=== PATIENT | male | born 1960 | race Caucasian/White ===

== ENCOUNTER → 2021-02-04 | Outpatient (CLI) | payer BC ==
[2021-02-04 15:11] LABS: Basophils # (A) 0.06 X 10*3/uL (0.00-0.10); Basophils % (A) 0.9 %; Eosinophils # (A) 0.14 X 10*3/uL (0.04-0.35); Lymphocytes # (A) 1.92 X 10*3/uL (0.90-5.00); Lymphocytes % (A) 27.8 %; MCH 29.1 pg (27.0-32.0); MCHC 32.5 g/dL (32.0-37.0); MCV 89.7 fL (80.0-97.0); Mean Platelet Volume 10.8 fL (9.5-12.2); Monocytes # (A) 0.51 X 10*3/uL (0.20-1.00); Monocytes % (A) 7.4 %; Neutrophils # (A) 4.25 X 10*3/uL (1.80-7.70); Neutrophils % (A) 61.5 %; Platelet Count 194 X 10*3/uL (140-440); RBC 4.46 X 10*6/uL (4.40-5.60); RDW 14.5 % (11.5-14.5); WBC 6.91 X 10*3/uL (4.50-10.00)
[2021-02-04 18:11] LABS: African American GFR (CKD) 52.7 (60.0-200.0); Albumin 4.5 g/dL (3.80-4.90); Albumin/Globulin Ratio 1.55 (1.60-3.17); Anion Gap 11.2 mmol/L (4.00-12.00); BUN/Creat Ratio 23.13 Ratio (12.00-20.00); Calcium 9.8 mg/dL (8.7-10.3); Carbon Dioxide 21.8 mmol/L (21.6-31.8); Globulin 2.9 g/dL (1.6-3.3); Non-African American GFR(CKD) 45.5 (60.0-200.0); Potassium 4.7 mmol/L (3.5-5.5); Total Bilirubin 0.8 mg/dL (0.2-1.2); Total Protein 7.4 g/dL (6.2-8.2)
[2021-02-04 20:11] LABS: Hepatitis B Surface AB- Quant <3.5 mIU/mL; Hepatitis B Surface Antibody Non-Reactive (Non-Reactive); Hepatitis B Surface Antigen Non-Reactive (Non-Reactive); Hepatitis C IgG Antibody Non-Reactive (Non-Reactive)
== END | disposition home or self-care (01) ==
LOC: LABWHC1 07:01
PROVIDERS: ATTEND Physician Assistant
DX: L40.0 Psoriasis vulgaris (principal); M25.50 Pain in unspecified joint; Z79.899 Other long term (current) drug therapy
CPT/HCPCS: 36415; 80053; 85025; 86480; 86704; 86706; 86803; 87340

== ENCOUNTER → 2022-04-09 | Outpatient (CLI) | payer BC ==
--- NOTE | 2022-04-09 09:25 | XR ---
Lumbosacral spine HISTORY: Low back pain, hip pain, [id number] 5 views of lumbosacral spine No comparisons Minimal anterolisthesis grade 1 L4-5, retrolisthesis grade 1 L3-4 noted. Sclerosis is present in the posterior elements of the lower lumbar spine. Is multilevel spondylosis. Loss of disc height present at intervertebral levels. Lumbar vertebral bodies show preserved height and bone mineralization. No e vident spondylolysis. Atherosclerotic calcification present in the aorta iliac distribution. IMPRESSION: Degenerative disc disease and facet arthropathy.
== END | disposition home or self-care (01) ==
LOC: RADXRMAIN 08:03
PROVIDERS: ATTEND Family Medicine
DX: M47.896 Other spondylosis, lumbar region (principal); M51.36 Other intervertebral disc degeneration, lumbar region; M25.551 Pain in right hip
CPT/HCPCS: 72110

== ENCOUNTER 2023-05-17 08:35 | Day surgery (SDC) | payer BC ==
[2023-05-11 10:50] VITALS: BMI 32.3
[~2023-05-17 08:35] MED LIST: LACTATED RINGERS 1,000 ML IV SCH
[2023-05-17 09:55] LABS: Glucose,Whole Blood 119 mg/dL (70-110)
[2023-05-17] MEDS ORDERED: PROPOFOL 10 MG/ML 20 ML VIAL IV ONE (09:59)
[2023-05-17 10:02] VITALS: TEMP 97.7
--- NOTE | 2023-05-17 10:05 | P.GSHP ---
History of Present Illness H&P Date: 05/17/23 Chief Complaint: Colon cancer screening 62-year-old male here for colonoscopy. Last colonoscopy 10 years ago. No bowel complaints. Past Medical History Past Medical History: Diabetes Mellitus, Hyperlipidemia, Hypertension, Skin Disorder Additional Past Medical History / Comment(s): PSORIASIS, History of Any Multi-Drug Resistant Organisms: None Reported Past Surgical History: AICD, Heart Catheterization, Pacemaker Additional Past Surgical History / Comment(s): COLONOSCOPY, Past Anesthesia/Blood Transfusion Reactions: No Reported Reaction Type of Cardiac Device: Permanent Pacemaker, AICD Device Placement Date:: 01/05/16 Past Psychological History: No Psychological Hx Reported Smoking Status: Never smoker Past Alcohol Use History: Rare Additional Past Alcohol Use History / Comment(s): USED TO CHEW TOBACCO OVER 27 YEARS AGO Past Drug Use History: None Reported - Past Family History Father Family Medical History: Cancer, Deep Vein Thrombosis (DVT) Medications and Allergies Home Medications Medication Instructions Recorded Confirmed Type Multivitamins, Thera [Multivitamin 1 tab PO BID 07/22/15 05/17/23 History (formulary)] Stokes-3 Fatty Acids/Fish Oil [Fish 1 each PO BID 07/22/15 05/17/23 History Oil 1,000 mg Softgel] Aspirin 81 mg PO DAILY 07/25/15 05/17/23 History Atorvastatin [Lipitor] 10 mg PO HS 12/30/15 05/17/23 History Carvedilol [Coreg] 25 mg PO BID 12/30/15 05/17/23 History Spironolactone [Aldactone] 25 mg PO DAILY 12/30/15 05/17/23 History Magnesium Oxide [Mag-Ox] 400 mg PO HS 05/11/23 05/17/23 History Nutraview 1 cap PO DAILY 05/11/23 05/17/23 History Potassium Gluconate 99 mg PO DAILY 05/11/23 05/17/23 History lisinopriL 40 mg PO DAILY 05/11/23 05/17/23 History metFORMIN HCL [Glucophage] 500 mg PO DAILY 05/11/23 05/17/23 History Acetaminophen [Tylenol Arthritis] 650 mg PO BID 05/16/23 05/17/23 History Allergies Allergy/AdvReac Type Severity Reaction Status Date / Time No Known Allergies Allergy Verified 05/17/23 09:35 Surgical - Exam Vital Signs Temp Pulse Resp BP Pulse Ox 97.7 F 102 H 18 137/77 97 05/17/23 09:41 05/17/23 09:41 05/17/23 09:41 05/17/23 09:41 05/17/23 09:41 Physical exam: General: Well-developed, well-nourished HEENT: Normocephalic, sclerae nonicteric Abdomen: Nontender, nondistended Extremities: No edema Neuro: Alert and oriented Results - Labs Abnormal Lab Results - Last 24 Hours (Table) 05/17/23 Range/Units 09:51 POC Glucose (mg/dL) 119 H (70-110) mg/dL Assessment and Plan (1) Colon cancer screening Narrative/Plan: Will proceed with colonoscopy at this time Current Visit: Yes Status: Acute Code(s): Z12.11 - ENCOUNTER FOR SCREENING FOR MALIGNANT NEOPLASM OF COLON SNOMED Code(s): 896905877
--- NOTE | 2023-05-17 10:18 | P.PCN ---
Date of Procedure: 05/17/23 Procedure(s) Performed: PREOPERATIVE DIAGNOSIS: Colon cancer screening POSTOPERATIVE DIAGNOSIS: Rectal polyp PROCEDURE: Colonoscopy with snare polypectomy ANESTHESIA: MAC SURGEON: James Foote M.D. SPECIMENS: Polyp ENDOSCOPIC PROCEDURE: The patient was placed on the endoscopy table in the left decubitus position. The Olympus colonoscope was inserted into the anus and passed under direct visualization to the base of the cecum. The appendiceal orifice was visualized. From that point the scope was slowly withdrawn inspecting all surfaces carefully. There were no neoplastic inflammatory or polypoid lesions throughout the cecum, ascending, transverse, descending, and sigmoid colon. In the rectum a small polyp was seen and removed using the snare with cautery technique. No diverticulosis was seen. Digital rectal examination was normal. The patient was taken to the recovery room in stable condition per anesthesia guidelines. RECOMMENDATIONS: Await biopsy results. Timing of next colonoscopy pending pathology results.
[2023-05-17 10:32] VITALS: RESP 16
[2023-05-17 11:02] VITALS: BP 108/53; PULSE 86
== END 2023-05-17 11:10 | disposition home or self-care (01) ==
LOC: ORWHC2ENDO 08:35
PROVIDERS: ATTEND Surgery
DX: Z12.11 Encounter for screening for malignant neoplasm of colon (principal); D12.8 Benign neoplasm of rectum; I10 Essential (primary) hypertension; E78.5 Hyperlipidemia, unspecified; E11.9 Type 2 diabetes mellitus without complications; Z98.890 Other specified postprocedural states; Z95.0 Presence of cardiac pacemaker; Z95.5 Presence of coronary angioplasty implant and graft; F10.90 Alcohol use, unspecified, uncomplicated; Z82.49 Family history of ischemic heart disease and other diseases of the circulatory system; Z79.82 Long term (current) use of aspirin; Z79.84 Long term (current) use of oral hypoglycemic drugs; Z79.899 Other long term (current) drug therapy
CPT/HCPCS: 45385; J2704; 88305

== ENCOUNTER → 2023-07-21 | Outpatient (CLI) | payer BC ==
--- NOTE | 2023-07-21 09:27 | XR ---
EXAMINATION TYPE: XR lumbosacral spine min 4V DATE OF EXAM: 07/21/2023 8:17 AM CLINICAL INDICATION:Male, 62 years old with history of R53.1 weakness; [facility] COMPARISON: 04/09/2022 TECHNIQUE: XR lumbosacral spine min 4V - Frontal, lateral , bilateral oblique and coned in L5-S1 late ral views of the spine. FINDINGS: No evidence of any acute osseous pathology. No evidence of loss of vertebral body height i s seen. There is normal alignment of the lumbar vertebral bodies. Mild scattered disc space narrowing . Multilevel marginal osteophyte formation throughout the visualized spine. There is facet joint arth ropathy throughout the spine. Scattered at least mild neural foraminal stenosis worse at L4-L5 and L5 -S1. Atherosclerosis of the arterial vasculature. IMPRESSION: 1. No acute fracture. 2. Mild to moderate multilevel disc degeneration. Mildly progressed from prior.
== END | disposition home or self-care (01) ==
LOC: RADXRMAIN 07:55
PROVIDERS: ATTEND Family Medicine
DX: M51.37 Other intervertebral disc degeneration, lumbosacral region (principal)
CPT/HCPCS: 72110

== ENCOUNTER 2023-07-28 14:24 | Inpatient (IN) | payer BC ==
--- NOTE | 2023-07-28 15:46 | ED ---
Weakness HPI - General Chief complaint: Weakness Stated complaint: Weakness Time Seen by Provider: 07/28/23 15:12 Source: patient, RN notes reviewed, old records reviewed Mode of arrival: ambulatory Limitations: no limitations - History of Present Illness Initial comments: This is a 62-year-old male to the ER for evaluation today. Patient presents today for evaluation of significant weakness. Increased stress in life stressors have been causing patient to be increasingly fatigued weak and taking care of himself well is concerned about him being confused at times lightheaded dizzy weak and not acting appropriately. Patient's is recently had surgery and he does admit to not eating and drinking as much as he normally does not take care of himself as well as he normally does patient states he has significant weakness in his legs and he almost passed out multiple times today MD Complaint: generalized weakness (Near syncopal events), lack of energy, difficulty walking Location: generalized Severity: severe Severity scale (1-10): 9 Quality: tingling, numbness, aching Consistency: constant Improves with: none Worsens with: none Context: recent illness, history of similar Associated Symptoms: confusion, shortness of breath, syncope (Almost passed out) - Related Data Home Medications Medication Instructions Recorded Confirmed Multivitamins, Thera [Multivitamin 1 tab PO BID 07/22/15 08/02/23 (formulary)] Aspirin 81 mg PO DAILY 07/25/15 08/02/23 Carvedilol [Coreg] 25 mg PO BID 12/30/15 08/02/23 Spironolactone [Aldactone] 25 mg PO DAILY 12/30/15 08/02/23 metFORMIN HCL [Glucophage] 500 mg PO DAILY 05/11/23 08/02/23 Betamethasone Dipropionate 1 applic TOPICAL BID PRN 07/28/23 08/02/23 [Diprolene 0.05% Cream (GEQ)] Calcipotriene 0.005% Cream 1 applic TOPICAL BID PRN 07/28/23 08/02/23 Calcium Carbonate [Calcium] 600 mg PO BID 07/28/23 08/02/23 Levothyroxine Sodium [Synthroid] 50 mcg PO DIRECTED 07/28/23 08/02/23 Previous Rx's Medication Instructions Recorded Ondansetron Odt [Zofran ODT] 4 mg PO Q8HR PRN 7 Days #21 tab 08/02/23 Pantoprazole Sodium [Protonix] 40 mg PO DAILY 30 Days #30 tab 08/02/23 Gabapentin [Neurontin] 300 mg PO BID 3 Days #6 cap 08/05/23 Allergies Allergy/AdvReac Type Severity Reaction Status Date / Time No Known Allergies Allergy Verified 08/02/23 15:11 Review of Systems ROS Statement: Those systems with pertinent positive or pertinent negative responses have been documented in the HPI. ROS Other: All systems not noted in ROS Statement are negative. Past Medical History Additional Past Medical History / Comment(s): pt denies any medical issues- confirm with when she comes in - 07/28/2023 History of Any Multi-Drug Resistant Organisms: None Reported Past Surgical History: No Surgical Hx Reported Past Psychological History: No Psychological Hx Reported Smoking Status: Never smoker Past Alcohol Use History: None Reported Past Drug Use History: None Reported General Exam Limitations: no limitations General appearance: alert, in no apparent distress Head exam: Present: atraumatic, normocephalic, normal inspection Eye exam: Present: normal appearance, PERRL, EOMI. Absent: scleral icterus, conjunctival injection, periorbital swelling ENT exam: Present: normal exam, mucous membranes moist Neck exam: Present: normal inspection. Absent: tenderness, meningismus, lymphadenopathy Respiratory exam: Present: normal lung sounds bilaterally. Absent: respiratory distress, wheezes, rales, rhonchi, stridor Cardiovascular Exam: Present: regular rate, normal rhythm, normal heart sounds. Absent: systolic murmur, diastolic murmur, rubs, gallop, clicks GI/Abdominal exam: Present: soft, normal bowel sounds. Absent: distended, tenderness, guarding, rebound, rigid Extremities exam: Present: normal inspection, full ROM, normal capillary refill. Absent: tenderness, pedal edema, joint swelling, calf tenderness Back exam: Present: normal inspection Neurological exam: Present: alert, oriented X3, CN II-XII intact Psychiatric exam: Present: normal affect, normal mood Skin exam: Present: warm, dry, intact, normal color. Absent: rash Course Vital Signs 07/28/23 07/28/23 07/28/23 14:44 15:40 15:50 Temperature 97.6 F Pulse Rate 55 L 60 58 L Pulse Rate [ Test Rider ] Respiratory 16 16 20 Rate Blood Pressure 70/42 54/41 78/60 Blood Pressure [Left Arm] O2 Sat by Pulse 96 97 97 Oximetry 07/28/23 07/28/23 07/28/23 16:00 16:03 16:22 Temperature Pulse Rate 68 69 Pulse Rate [ Test Rider ] Respiratory 20 20 16 Rate Blood Pressure 95/60 103/54 Blood Pressure [Left Arm] O2 Sat by Pulse 97 97 Oximetry 07/28/23 07/28/23 07/28/23 17:36 18:00 19:00 Temperature Pulse Rate 78 80 Pulse Rate [ 78 Test Rider ] Respiratory 16 12 Rate Blood Pressure 91/62 98/47 Blood Pressure [Left Arm] O2 Sat by Pulse 98 96 Oximetry 07/28/23 07/28/23 07/29/23 20:00 23:00 04:00 Temperature Pulse Rate 68 72 56 L Pulse Rate [ Test Rider ] Respiratory 14 16 17 Rate Blood Pressure 97/59 109/49 115/52 Blood Pressure [Left Arm] O2 Sat by Pulse 97 98 95 Oximetry 07/29/23 07/29/23 07/29/23 06:00 08:42 12:00 Temperature 97.1 F L Pulse Rate 78 Pulse Rate [ 65 70 Test Rider ] Respiratory 16 18 18 Rate Blood Pressure 131/68 Blood Pressure 115/53 117/55 [Left Arm] O2 Sat by Pulse 95 96 97 Oximetry 07/29/23 14:00 Temperature Pulse Rate Pulse Rate [ 70 Test Rider ] Respiratory 18 Rate Blood Pressure Blood Pressure [Left Arm] O2 Sat by Pulse Oximetry - Reevaluation(s) Reevaluation #1: 07/28/23 20:00 Records reviewed Reevaluation #2: 07/28/23 20:00 Patient symptoms improving with hydration here in the ER Reevaluation #3: 07/28/23 20:00 Patient informed of results and questions answered Reevaluation #4: 07/28/23 20:00 Was pt. sent in by a medical professional or institution (, PA, INSPECTION ENGINEER, urgent care, hospital, or retirement...) When possible be specific @ -no Did you speak to anyone other than the patient for history (EMS, parent, family, police, friend...)? What history was obtained from this source @ -no Did you review nursing and triage notes (agree or disagree)? Why? @ -agree Are old charts reviewed (outside hosp., previous admission, EMS record, old EKG, old radiological studies, urgent care reports/EKG's, retirement records)? Report findings @ -yes Differential Diagnosis (chest pain, altered mental status, abdominal pain women, abdominal pain men, vaginal bleeding, weakness, fever, dyspnea, syncope, headache, dizziness, GI bleed, back pain, seizure, CVA, palpatations, mental health, musculoskeletal)? @ -prior EKG interpreted by me (3pts min.). @ -yes X-rays interpreted by me (1pt min.). @ -yes negative for acute disease CT interpreted by me (1pt min.). @ -no U/S interpreted by me (1pt. min.). @ -no What testing was considered but not performed or refused? (CT, X-rays, U/S, labs)? Why? @ -none What meds were considered but not given or refused? Why? @ -none Did you discuss the management of the patient with other professionals (professionals i.e. , PA, INSPECTION ENGINEER, lab, RT, psych nurse, public health social worker, personal injury specialist, teacher, security flex utility officer, human services case manager)? Give summary @ -no Was smoking cessation discussed for >3mins.? @ -no Was critical care preformed (if so, how long)? @ -yes31 Were there social determinants of health that impacted care today? How? (Homelessness, low income, unemployed, alcoholism, drug addiction, transportation, low edu. Level, literacy, decrease access to med. care, nursing home, rehab)? @ -none Was there de-escalation of care discussed even if they declined (Discuss DNR or withdrawal of care, Hospice)? DNR status @ -no What co-morbidities impacted this encounter? (DM, HTN, Smoking, COPD, CAD, Cancer, CVA, ARF, Chemo, Hep., AIDS, mental health diagnosis, sleep apnea, morbid obesity)? @ -none Was patient admitted / discharged? Hospital course, mention meds given and route, prescriptions, significant lab abnormalities, going to OR and other pertinent info. @ - 62 male will be admitted for near syncopal event multiple times today. Sev erely low blood pressure on arrival. Significant dehydration improved here in the ER the patient will be admitted for continued evaluation and acute kidney failure Admitted Undiagnosed new problem with uncertain prognosis? @ -no Drug Therapy requiring intensive monitoring for toxicity (Heparin, Nitro, Insulin, Cardizem)? @ -no Were any procedures done? @ -no Diagnosis/symptom? @ -Recurrent syncope Acute, or Chronic, or Acute on Chronic? @ -Acute Uncomplicated (without systemic symptoms) or Complicated (systemic symptoms)? @ -Complicated Side effects of treatment? @ -no Exacerbation, Progression, or Severe Exacerbation? @ -exacerbation Poses a threat to life or bodily function? How? (Chest pain, USA, MD, pneumonia, PE, COPD, DKA, ARF, appy, cholecystitis, CVA, Diverticulitis, Homicidal, Suicidal, threat to staff... and all critical care pts) @ -yes syncopal event Reevaluation #5: 07/28/23 20:00 Differential Weakness: Hypoglycemia, shock, sepsis, hyponatremia, anemia, infection, MD, ETOH, adverse medicine reaction, overdose, stroke, this is not meant to be an all-inclusive list. Differential Syncope: Valvular disease, hypertrophic cardiomyopathy, pulmonary embolism, tamponade, tachycardia, bradycardia, MD, hypovolemia, hemorrhage, dissection, anemia, intracranial hemorrhage, seizure, hypoglycemia, carbon monoxide poisoning, this is not meant to be an all-inclusive list. - Consultations Consultation #1: Spoke with [facility] who agreed to admit this patient EKG Findings - EKG Comments: EKG Findings:: EKG is sinus 69 SC 163 QRS 176 QTc 474 - EKG Results: EKG: interpreted by ERMD Medical Decision Making - Medical Decision Making 62 male will be admitted for near syncopal event multiple times today. Severely low blood pressure on arrival. Significant dehydration improved here in the ER the patient will be admitted for continued evaluation and acute kidney failure - Lab Data Result diagrams: 08/02/23 05:56 08/02/23 05:56 Lab Results 07/28/23 07/28/23 07/28/23 Range/Units 15:13 15:13 15:13 WBC 12.5 H (3.8-10.6) k/uL RBC 4.02 L (4.30-5.90) m/uL Hgb 11.7 L (13.0-17.5) gm/dL Hct 35.5 L (39.0-53.0) % MCV 88.3 (80.0-100.0) fL MCH 29.2 (25.0-35.0) pg MCHC 33.0 (31.0-37.0) g/dL RDW 13.2 (11.5-15.5) % Plt Count 272 (150-450) k/uL MPV 9.0 Neutrophils % 84 % Lymphocytes % 8 % Monocytes % 6 % Eosinophils % 0 % Basophils % 0 % Neutrophils # 10.5 H (1.3-7.7) k/uL Lymphocytes # 1.0 (1.0-4.8) k/uL Monocytes # 0.7 (0-1.0) k/uL Eosinophils # 0.0 (0-0.7) k/uL Basophils # 0.0 (0-0.2) k/uL PT 11.4 (10.0-12.5) sec INR 1.0 (<1.2) APTT 28.4 (22.0-30.0) sec Sodium 132 L (137-145) mmol/L Potassium 5.0 (3.5-5.1) mmol/L Chloride 99 (98-107) mmol/L Carbon Dioxide 19 L (22-30) mmol/L Anion Gap 14 mmol/L BUN 50 H (9-20) mg/dL Creatinine 2.75 H (0.66-1.25) mg/dL Est GFR (CKD-EPI)AfAm 27 (>60 ml/min/1.73 sqM) Est GFR (CKD-EPI)NonAf 23 (>60 ml/min/1.73 sqM) Glucose 149 H (74-99) mg/dL Lactic Ac Sepsis Rflx Plasma Lactic Acid Roddy (0.7-2.0) mmol/L Calcium 10.2 (8.4-10.2) mg/dL Phosphorus 5.3 H (2.5-4.5) mg/dL Magnesium 2.9 H (1.6-2.3) mg/dL Total Bilirubin 1.4 H (0.2-1.3) mg/dL AST 51 (17-59) U/L ALT 50 H (4-49) U/L Alkaline Phosphatase 63 (38-126) U/L Troponin I (0.000-0.034) ng/mL NT-Pro-B Natriuret Pep 1440 pg/mL Total Protein 7.4 (6.3-8.2) g/dL Albumin 4.1 (3.5-5.0) g/dL Influenza Type A (PCR) (Not Detectd) Influenza Type B (PCR) (Not Detectd) RSV (PCR) (Not Detectd) SARS-CoV-2 (PCR) (Not Detectd) 07/28/23 07/28/23 07/28/23 Range/Units 15:13 15:13 16:20 WBC (3.8-10.6) k/uL RBC (4.30-5.90) m/uL Hgb (13.0-17.5) gm/dL Hct (39.0-53.0) % MCV (80.0-100.0) fL MCH (25.0-35.0) pg MCHC (31.0-37.0) g/dL RDW (11.5-15.5) % Plt Count (150-450) k/uL MPV Neutrophils % % Lymphocytes % % Monocytes % % Eosinophils % % Basophils % % Neutrophils # (1.3-7.7) k/uL Lymphocytes # (1.0-4.8) k/uL Monocytes # (0-1.0) k/uL Eosinophils # (0-0.7) k/uL Basophils # (0-0.2) k/uL PT (10.0-12.5) sec INR (<1.2) APTT (22.0-30.0) sec Sodium (137-145) mmol/L Potassium (3.5-5.1) mmol/L Chloride (98-107) mmol/L Carbon Dioxide (22-30) mmol/L Anion Gap mmol/L BUN (9-20) mg/dL Creatinine (0.66-1.25) mg/dL Est GFR (CKD-EPI)AfAm (>60 ml/min/1.73 sqM) Est GFR (CKD-EPI)NonAf (>60 ml/min/1.73 sqM) Glucose (74-99) mg/dL Lactic Ac Sepsis Rflx Y Plasma Lactic Acid Roddy 2.3 H* (0.7-2.0) mmol/L Calcium (8.4-10.2) mg/dL Phosphorus (2.5-4.5) mg/dL Magnesium (1.6-2.3) mg/dL Total Bilirubin (0.2-1.3) mg/dL AST (17-59) U/L ALT (4-49) U/L Alkaline Phosphatase (38-126) U/L Troponin I 0.049 H* (0.000-0.034) ng/mL NT-Pro-B Natriuret Pep pg/mL Total Protein (6.3-8.2) g/dL Albumin (3.5-5.0) g/dL Influenza Type A (PCR) (Not Detectd) Influenza Type B (PCR) (Not Detectd) RSV (PCR) (Not Detectd) SARS-CoV-2 (PCR) (Not Detectd) 07/28/23 Range/Units 17:36 WBC (3.8-10.6) k/uL RBC (4.30-5.90) m/uL Hgb (13.0-17.5) gm/dL Hct (39.0-53.0) % MCV (80.0-100.0) fL MCH (25.0-35.0) pg MCHC (31.0-37.0) g/dL RDW (11.5-15.5) % Plt Count (150-450) k/uL MPV Neutrophils % % Lymphocytes % % Monocytes % % Eosinophils % % Basophils % % Neutrophils # (1.3-7.7) k/uL Lymphocytes # (1.0-4.8) k/uL Monocytes # (0-1.0) k/uL Eosinophils # (0-0.7) k/uL Basophils # (0-0.2) k/uL PT (10.0-12.5) sec INR (<1.2) APTT (22.0-30.0) sec Sodium (137-145) mmol/L Potassium (3.5-5.1) mmol/L Chloride (98-107) mmol/L Carbon Dioxide (22-30) mmol/L Anion Gap mmol/L BUN (9-20) mg/dL Creatinine (0.66-1.25) mg/dL Est GFR (CKD-EPI)AfAm (>60 ml/min/1.73 sqM) Est GFR (CKD-EPI)NonAf (>60 ml/min/1.73 sqM) Glucose (74-99) mg/dL Lactic Ac Sepsis Rflx Plasma Lactic Acid Roddy (0.7-2.0) mmol/L Calcium (8.4-10.2) mg/dL Phosphorus (2.5-4.5) mg/dL Magnesium (1.6-2.3) mg/dL Total Bilirubin (0.2-1.3) mg/dL AST (17-59) U/L ALT (4-49) U/L Alkaline Phosphatase (38-126) U/L Troponin I (0.000-0.034) ng/mL NT-Pro-B Natriuret Pep pg/mL Total Protein (6.3-8.2) g/dL Albumin (3.5-5.0) g/dL Influenza Type A (PCR) Not Detected (Not Detectd) Influenza Type B (PCR) Not Detected (Not Detectd) RSV (PCR) Not Detected (Not Detectd) SARS-CoV-2 (PCR) Not Detected (Not Detectd) - EKG Data -: EKG Interpreted by Me - Radiology Data Radiology results: report reviewed (Chest x-ray is negative for acute disease), image reviewed Critical Care Time Critical Care Time: Yes Total Critical Care Time: 31 Disposition Clinical Impression: Dehydration, EMILY (acute kidney injury), Weakness, Syncope, Generalized weakness Disposition: ADMITTED IP TO THIS HOSP Condition: Fair Is patient prescribed a controlled substance at d/c from ED?: No Time of Disposition: 18:20
[2023-07-28] MEDS: SODIUM CHLORIDE 0.9% 1,000 ML IV STA ×2 (15:48→16:25)
[2023-07-28 16:05] LABS: Basophils % (A) 0 %; Eosinophils % (A) 0 %; HCT 35.5 % (39.0-53.0); HGB 11.7 gm/dL (13.0-17.5); Lymphocytes % (A) 8 %; MCH 29.2 pg (25.0-35.0); MCV 88.3 fL (80.0-100.0); Monocytes # (A) 0.7 k/uL (0-1.0); Monocytes % (A) 6 %; Neutrophils # (A) 10.5 k/uL (1.3-7.7); Neutrophils % (A) 84 %; Platelet Count 272 k/uL (150-450); RBC 4.02 m/uL (4.30-5.90); RDW 13.2 % (11.5-15.5); WBC 12.5 k/uL (3.8-10.6)
[2023-07-28 16:14] LABS: Partial Thromboplastin Time 28.4 sec (22.0-30.0); Prothrombin Time 11.4 sec (10.0-12.5)
[2023-07-28 16:18] LABS: ALT 50 U/L (4-49); AST 51 U/L (17-59); African American GFR (CKD) 27 (>60 ml/min/1.73 sqM); Albumin 4.1 g/dL (3.5-5.0); Alkaline Phosphatase 63 U/L (38-126); Anion Gap 14 mmol/L; Blood Urea Nitrogen 50 mg/dL (9-20); Calcium 10.2 mg/dL (8.4-10.2); Carbon Dioxide 19 mmol/L (22-30); Chloride 99 mmol/L (98-107); Glucose 149 mg/dL (74-99); Magnesium 2.9 mg/dL (1.6-2.3); Non-African American GFR(CKD) 23 (>60 ml/min/1.73 sqM); Phosphorus 5.3 mg/dL (2.5-4.5); Sodium 132 mmol/L (137-145); Total Bilirubin 1.4 mg/dL (0.2-1.3); Total Protein 7.4 g/dL (6.3-8.2)
[2023-07-28 16:26] LABS: NT-Pro-B-Type Natriuretic Pept 1440 pg/mL
[2023-07-28] MEDS: SODIUM CHLORIDE 0.9% 500 ML 500 ML IV STA (16:26)
--- NOTE | 2023-07-28 17:57 | XR ---
EXAMINATION: XR chest 1V portable DATE AND TIME: 07/28/2023 5:51 PM CLINICAL INDICATION: PHH; weak TECHNIQUE: AP upright portable COMPARISON: CXR 01/06/2016 FINDINGS: The lungs are clear. The pleural spaces are negative. Cardiac pacemaker and EKG leads noted. The cardiac silhouette appears mildly enlarged on this AP port able view, unchanged. The remainder of the mediastinal silhouette is unremarkable. The skeletal structures and soft tissues are negative for acute findings. Bilateral prominent first r ib costochondral calcifications redemonstrated. IMPRESSION: No acute radiographic process.
[2023-07-28] MEDS ORDERED: NALOXONE 0.4 MG/ML 1 ML VIAL IV PRN (18:25)
[2023-07-28] MEDS ORDERED: MORPHINE SULFATE 4 MG/ML SYRINGE IV PRN (18:25)
[2023-07-28] MEDS: SODIUM CHLORIDE 0.9% 1,000 ML IV SCH (18:31)
[2023-07-29 09:01] LABS: Basophils % (A) 0 %; Eosinophils # (A) 0.1 k/uL (0-0.7); Eosinophils % (A) 1 %; HCT 33.2 % (39.0-53.0); Lymphocytes # (A) 0.9 k/uL (1.0-4.8); Lymphocytes % (A) 10 %; MCH 29.4 pg (25.0-35.0); MCHC 33.1 g/dL (31.0-37.0); MCV 88.6 fL (80.0-100.0); Mean Platelet Volume 8.8; Monocytes # (A) 0.9 k/uL (0-1.0); Monocytes % (A) 10 %; Neutrophils # (A) 7.4 k/uL (1.3-7.7); Neutrophils % (A) 78 %; Platelet Count 206 k/uL (150-450); RBC 3.75 m/uL (4.30-5.90); RDW 13.5 % (11.5-15.5); WBC 9.6 k/uL (3.8-10.6)
[2023-07-29 09:26] LABS: ALT 58 U/L (4-49); AST 116 U/L (17-59); African American GFR (CKD) 40 (>60 ml/min/1.73 sqM); Albumin 3.4 g/dL (3.5-5.0); Alkaline Phosphatase 68 U/L (38-126); Anion Gap 10 mmol/L; Blood Urea Nitrogen 42 mg/dL (9-20); Calcium 8.7 mg/dL (8.4-10.2); Carbon Dioxide 19 mmol/L (22-30); Chloride 105 mmol/L (98-107); Glucose 124 mg/dL (74-99); Magnesium 2.6 mg/dL (1.6-2.3); Non-African American GFR(CKD) 34 (>60 ml/min/1.73 sqM); Phosphorus 4.3 mg/dL (2.5-4.5); Potassium 3.9 mmol/L (3.5-5.1); Sodium 134 mmol/L (137-145); Total Bilirubin 0.9 mg/dL (0.2-1.3); Total Protein 6.4 g/dL (6.3-8.2)
[2023-07-29] MEDS ORDERED: TEMAZEPAM 15 MG CAP PO PRN (09:34)
[2023-07-29] MEDS ORDERED: NALOXONE 0.4 MG/ML 1 ML VIAL IV PRN (09:34)
[2023-07-29] MEDS ORDERED: HYDROcodone/APAP 5-325MG 1 EACH TAB PO PRN (09:34)
[2023-07-29] MEDS ORDERED: ACETAMINOPHEN TAB 325 MG TAB PO PRN (09:34)
[2023-07-29] MEDS ORDERED: MELATONIN 3 MG TABLET PO PRN (09:34)
[2023-07-29] MEDS ORDERED: LEVOTHYROXINE 50 MCG TAB PO SCH (09:45)
--- NOTE | 2023-07-29 10:45 | US ---
EXAMINATION TYPE: US kidneys/renal and bladder DATE OF EXAM: 07/29/2023 COMPARISON: NONE CLINICAL INDICATION: Male, 62 years old with history of Ronnie; Abnormal labs EXAM MEASUREMENTS: Right Kidney: 11.7 x 4.9 x 5.5 cm Left Kidney: 11.1 x 4.8 x 5.5 cm Right Kidney: Lower medial anechoic lesion = 0.8 x 0.7 x 0.6 cm Left Kidney: Lower medial anechoic lesion = 1.2 x 1.4 x 1.2 cm. Cortical lobularity seen. Bladder: Distended, anechoic Right Jets seen There is no evidence for hydronephrosis at this point in time. No nephrolithiasis is seen. No gavino s are identified. The urinary bladder is anechoic. Bilateral ureteral jets are seen. IMPRESSION: 1. No hydronephrosis or nephrolithiasis 2. Indeterminate left renal lesion by ultrasound but most typical of a simple appearing cyst.
[2023-07-29] MEDS ORDERED: DEXTROSE 50% SYRINGE 50 ML IVP PRN ×2 (10:50)
--- NOTE | 2023-07-29 10:50 | P.HPIM ---
History of Present Illness H&P Date: 07/29/23 History of present illness; patient is a 62-year-old gentleman with past medical significant for hypertension, hyperlipidemia, diabetes mellitus presented to ER for generalized weakness. Patient stated that he has been complaining of generalized weakness and feeling of not being well for the last few weeks. Patient has been complaining of being lightheaded and dizzy. Patient had poor appetite. Patient stated he had a lot of stress going on in his personal life. also noted the patient was confused at times. There was no complaint of fever or chills. No complaint of recent fall. Denied any chest pain or shortness of breath. There was no complaint of nausea, vomiting, pain. Because of the generalized weakness, patient came to the ER Initial lab work done in the ER showed WBC 12.5, hemoglobin 11.7, platelet count 272, sodium 132, potassium 5, BUN 50, creatinine 2.75, lactate 2.3, phosphorus 5.3, magnesium 2.9, bilirubin 1.4, troponin 0.049 Influenza A not detected Influenza B not detected RSV not detected COVID-19 not detected EKG done in the ER showed heart rate of 69, sinus rhythm, no ST segment elevation or depression seen, no T-wave inversions seen. Chest x-ray done in the ER no acute radiographic process Patient admitted to internal medicine service REVIEW OF SYSTEMS: CONSTITUTIONAL: As mentioned above. HEENT: No recent visual problems or hearing problems. Denied any sore throat. CARDIOVASCULAR: No chest pain, orthopnea, PND, no palpitations, no syncope. PULMONARY: No shortness of breath, no cough, no hemoptysis. GASTROINTESTINAL: No diarrhea, no nausea, no vomiting, no abdominal pain. NEUROLOGICAL: No headaches, no weakness, no numbness. HEMATOLOGICAL: Denies any bleeding or petechiae. GENITOURINARY: Denies any burning micturition, frequency, or urgency. MUSCULOSKELETAL/RHEUMATOLOGICAL: Denies any joint pain, swelling, or any muscle pain. ENDOCRINE: Denies any polyuria or polydipsia. The rest of the 14-point review of systems is negative. PHYSICAL EXAMINATION: GENERAL: The patient is alert and oriented x3, not in any acute distress. Well developed, well nourished. HEENT: Pupils are round and equally reacting to light. EOMI. No scleral icterus. No conjunctival pallor. Normocephalic, atraumatic. No pharyngeal erythema. No thyromegaly. CARDIOVASCULAR: S1 and S2 present. No murmurs, rubs, or gallops. PULMONARY: Chest is clear to auscultation, no wheezing or crackles. ABDOMEN: Soft, nontender, nondistended, normoactive bowel sounds. No palpable organomegaly. MUSCULOSKELETAL: No joint swelling or deformity. EXTREMITIES: No cyanosis, clubbing, or pedal edema. NEUROLOGICAL: Gross neurological examination did not reveal any focal deficits. SKIN: Psoriatic rash seen on the back, knees bilateral Assessment and plan Generalized weakness Acute kidney injury Elevated troponin Hypothyroidism Hypertension hyperlipidemia Monitor vital signs Monitor CBC Monitor CMP Continue telemetry monitoring Trend troponins. Ordered 2D echo Avoid nephrotoxic agents Continue IV fluids Ordered ultrasound of kidneys Hold lisinopril, and Aldactone Monitor blood sugar level, continue sliding insulin Consult nephrology consult cardiology Labs and medication were reviewed.. Continue same treatment. Continue with symptomatic treatment. Resume home medication. Monitor labs and vitals. DVT and GI prophylaxis. Further recommendations as per clinical course of the patient Dictation was produced using [employer] dictation software. please excuse any grammatical, word or spelling errors. Past Medical History Additional Past Medical History / Comment(s): pt denies any medical issues- conf irm with when she comes in - 07/28/2023 History of Any Multi-Drug Resistant Organisms: None Reported Past Surgical History: No Surgical Hx Reported Past Anesthesia/Blood Transfusion Reactions: No Reported Reaction Past Psychological History: No Psychological Hx Reported Smoking Status: Never smoker Past Alcohol Use History: None Reported Past Drug Use History: None Reported Medications and Allergies Home Medications Medication Instructions Recorded Confirmed Type Multivitamins, Thera [Multivitamin 1 tab PO BID 07/22/15 07/28/23 History (formulary)] Aspirin 81 mg PO DAILY 07/25/15 07/28/23 History Atorvastatin [Lipitor] 10 mg PO HS 12/30/15 07/28/23 History Carvedilol [Coreg] 25 mg PO BID 12/30/15 07/28/23 History Spironolactone [Aldactone] 25 mg PO DAILY 12/30/15 07/28/23 History lisinopriL 40 mg PO DAILY 05/11/23 07/28/23 History metFORMIN HCL [Glucophage] 500 mg PO DAILY 05/11/23 07/28/23 History Betamethasone Dipropionate 1 applic TOPICAL BID PRN 07/28/23 07/28/23 History [Diprolene 0.05% Cream (GEQ)] Calcipotriene 0.005% Cream 1 applic TOPICAL BID PRN 07/28/23 07/28/23 History Calcium Carbonate [Calcium] 600 mg PO BID 07/28/23 07/28/23 History Gabapentin [Neurontin] 300 mg PO BID 07/28/23 07/28/23 History Levothyroxine Sodium [Synthroid] 50 mcg PO DIRECTED 07/28/23 07/28/23 History Allergies Allergy/AdvReac Type Severity Reaction Status Date / Time No Known Allergies Allergy Verified 07/28/23 18:32 Physical Exam Vitals: Vital Signs Temp Pulse Pulse Resp BP BP Pulse Ox 07/29/23 08:42 97.1 F L 65 18 115/53 96 07/29/23 06:00 78 16 131/68 95 07/29/23 04:00 56 L 17 115/52 95 07/28/23 23:00 72 16 109/49 98 07/28/23 20:00 68 14 97/59 97 07/28/23 19:00 80 12 98/47 96 07/28/23 18:00 78 16 91/62 98 07/28/23 17:36 78 07/28/23 16:22 69 16 103/54 97 07/28/23 16:03 68 20 95/60 97 07/28/23 16:00 20 07/28/23 15:50 58 L 20 78/60 97 07/28/23 15:40 60 16 54/41 97 07/28/23 14:44 97.6 F 55 L 16 70/42 96 Intake and Output 07/28/23 07/29/23 07/29/23 22:59 06:59 14:59 Other: Weight 95.254 kg Results CBC & Chem 7: 07/29/23 08:30 07/29/23 08:30 Labs: Abnormal Lab Results - Last 24 Hours (Table) 07/28/23 07/28/23 07/28/23 Range/Units 15:13 15:13 15:13 WBC 12.5 H (3.8-10.6) k/uL RBC 4.02 L (4.30-5.90) m/uL Hgb 11.7 L (13.0-17.5) gm/dL Hct 35.5 L (39.0-53.0) % Neutrophils # 10.5 H (1.3-7.7) k/uL Lymphocytes # (1.0-4.8) k/uL Sodium 132 L (137-145) mmol/L Carbon Dioxide 19 L (22-30) mmol/L BUN 50 H (9-20) mg/dL Creatinine 2.75 H (0.66-1.25) mg/dL Glucose 149 H (74-99) mg/dL Plasma Lactic Acid Roddy 2.3 H* (0.7-2.0) mmol/L Phosphorus 5.3 H (2.5-4.5) mg/dL Magnesium 2.9 H (1.6-2.3) mg/dL Total Bilirubin 1.4 H (0.2-1.3) mg/dL ALT 50 H (4-49) U/L Troponin I (0.000-0.034) ng/mL 07/28/23 07/29/23 Range/Units 15:13 08:30 WBC (3.8-10.6) k/uL RBC 3.75 L (4.30-5.90) m/uL Hgb 11.0 L (13.0-17.5) gm/dL Hct 33.2 L (39.0-53.0) % Neutrophils # (1.3-7.7) k/uL Lymphocytes # 0.9 L (1.0-4.8) k/uL Sodium (137-145) mmol/L Carbon Dioxide (22-30) mmol/L BUN (9-20) mg/dL Creatinine (0.66-1.25) mg/dL Glucose (74-99) mg/dL Plasma Lactic Acid Roddy (0.7-2.0) mmol/L Phosphorus (2.5-4.5) mg/dL Magnesium (1.6-2.3) mg/dL Total Bilirubin (0.2-1.3) mg/dL ALT (4-49) U/L Troponin I 0.049 H* (0.000-0.034) ng/mL Thrombosis Risk Factor Assmnt - Choose All That Apply Other Risk Factors: Yes Each Risk Factor Represents 2 Points: Age 61-74 years Thrombosis Risk Factor Assessment Total Risk Factor Score: 2 Thrombosis Risk Factor Assessment Level: Low Risk
--- NOTE | 2023-07-29 10:52 | P.NPCON ---
History of Present Illness - Reason for Consult acute renal failure - History of Present Illness Patient is a 62-year-old male who was admitted to the hospital with complaints of increased weakness lightheadedness and dizziness. Patient denied any history of fevers chills nausea vomiting. He has had poor oral intake No significant urinary symptoms. Serum creatinine 2.75 on admission and decreased to 1.9 today. Previous creatinine 1.2 on 07/20/2023. Blood pressure was significantly low on admission with systolic in the 50s and 70s. Maintained on CARLEY inhibitors prior to admission. No history of use of NSAIDs Patient is avoiding Review of Systems As per HPI Past Medical History Additional Past Medical History / Comment(s): pt denies any medical issues- confirm with when she comes in - 07/28/2023 History of Any Multi-Drug Resistant Organisms: None Reported Past Surgical History: No Surgical Hx Reported Past Anesthesia/Blood Transfusion Reactions: No Reported Reaction Past Psychological History: No Psychological Hx Reported Smoking Status: Never smoker Past Alcohol Use History: None Reported Past Drug Use History: None Reported Medications and Allergies Home Medications Medication Instructions Recorded Confirmed Type Multivitamins, Thera [Multivitamin 1 tab PO BID 07/22/15 07/28/23 History (formulary)] Aspirin 81 mg PO DAILY 07/25/15 07/28/23 History Atorvastatin [Lipitor] 10 mg PO HS 12/30/15 07/28/23 History Carvedilol [Coreg] 25 mg PO BID 12/30/15 07/28/23 History Spironolactone [Aldactone] 25 mg PO DAILY 12/30/15 07/28/23 History lisinopriL 40 mg PO DAILY 05/11/23 07/28/23 History metFORMIN HCL [Glucophage] 500 mg PO DAILY 05/11/23 07/28/23 History Betamethasone Dipropionate 1 applic TOPICAL BID PRN 07/28/23 07/28/23 History [Diprolene 0.05% Cream (GEQ)] Calcipotriene 0.005% Cream 1 applic TOPICAL BID PRN 07/28/23 07/28/23 History Calcium Carbonate [Calcium] 600 mg PO BID 07/28/23 07/28/23 History Gabapentin [Neurontin] 300 mg PO BID 07/28/23 07/28/23 History Levothyroxine Sodium [Synthroid] 50 mcg PO DIRECTED 07/28/23 07/28/23 History Allergies Allergy/AdvReac Type Severity Reaction Status Date / Time No Known Allergies Allergy Verified 07/28/23 18:32 Physical Exam Vitals: Vital Signs Temp Pulse Pulse Resp BP BP Pulse Ox 07/29/23 08:42 97.1 F L 65 18 115/53 96 07/29/23 06:00 78 16 131/68 95 07/29/23 04:00 56 L 17 115/52 95 07/28/23 23:00 72 16 109/49 98 07/28/23 20:00 68 14 97/59 97 07/28/23 19:00 80 12 98/47 96 07/28/23 18:00 78 16 91/62 98 07/28/23 17:36 78 07/28/23 16:22 69 16 103/54 97 07/28/23 16:03 68 20 95/60 97 07/28/23 16:00 20 07/28/23 15:50 58 L 20 78/60 97 07/28/23 15:40 60 16 54/41 97 07/28/23 14:44 97.6 F 55 L 16 70/42 96 Intake and Output 07/28/23 07/29/23 07/29/23 22:59 06:59 14:59 Other: Weight 95.254 kg Patient is awake, comfortable, no acute distress Examination of the heart S1 and S2 Examination of the lungs bilateral breath sounds are heard but decreased breath sounds at the bases Abdomen is soft obese nontender Examination of lower extremities shows no significant edema chronic skin changes noted with scaly patches of skin suggestive of psoriasis on upper and lower extremities [employer]RI[employer] exam grossly intact Results - Lab Results Most recent lab results Calcium 8.7 mg/dL (8.4-10.2) 07/29/23 08:30 Phosphorus 4.3 mg/dL (2.5-4.5) 07/29/23 08:30 Magnesium 2.6 mg/dL (1.6-2.3) H 07/29/23 08:30 07/29/23 08:30 07/29/23 08:30 Assessment and Plan Assessment: 1. Acute kidney injury ATN, nonoliguric secondary to low blood pressure. Check UA. CARLEY inhibitors currently on hold. Check ultrasound of the kidneys 2. metabolic acidosis associated with acute kidney injury and lactic acidosis. 3. Mildly elevated troponin 4. History of hypertension with blood pressure currently low. Plan: Check urine analysis Continue with IV fluids Continue to hold off on CARLEY inhibitors Repeat labs in a.m. LARS Shen Thank you for the consultation. We will continue to follow the patient with you during his hospitalization.
[2023-07-29 12:06] LABS: Glucose,Whole Blood 133 mg/dL (70-110)
[2023-07-29] MEDS: INSULIN ASPART (NovoLOG) 100 UNIT/ML VIAL SQ SCH (12:40)
--- NOTE | 2023-07-29 12:48 | CA ---
Transthoracic Echo Report Name: Alcides Lee Age: 62 Gender: M : 1960 Exam Date: 07/29/2023 11:57 Exam Location: [facility] Ht (in): 66 Wt (lb): 210 Ordering Physician: Jeremi Joshua MD Attending/Referring Phys: Pre Press Operator Lucas Mcgovern RD Procedure CPT: Indications: elevated troponin Cardiac Hx: Technical Quality: Technically difficult study Contrast 1: Definity Total Dose (mL): 2 Contrast 2: Total Dose (mL): MEASUREMENTS (Male / Female) Normal Values 2D ECHO LV Diastolic Diameter PLAX 5.4 cm 4.2 - 5.9 / 3.9 - 5.3 cm LV Systolic Diameter PLAX 4.3 cm IVS Diastolic Thickness 1.1 cm 0.6 - 1.0 / 0.6 - 0.9 cm LVPW Diastolic Thickness 1.1 cm 0.6 - 1.0 / 0.6 - 0.9 cm LV Relative Wall Thickness 0.4 RV Internal Dim ED PLAX 2.9 cm LVOT Diameter 2.2 cm Aortic Root Diameter 3.0 cm LA Systolic Diameter LX 2.9 cm 3.0 - 4.0 / 2.7 - 3.8 cm LV Diastolic Volume MOD BP 70.4 cm??? 67 - 155 / 56 - 104 cm??? LV Systolic Volume MOD BP 33.6 cm??? 22 - 58 / 19 - 49 cm??? LV Ejection Fraction MOD BP 52.2 % >= 55 % LV Diastolic Volume MOD 4C 82.0 cm??? LV Systolic Volume MOD 4C 44.1 cm??? LV Ejection Fraction MOD 4C 46.2 % LV Diastolic Length 4C 7.0 cm LV Systolic Length 4C 6.2 cm LV Diastolic Volume MOD 2C 58.5 cm??? LV Systolic Volume MOD 2C 25.4 cm??? LV Ejection Fraction MOD 2C 56.6 % LV Diastolic Length 2C 6.8 cm LV Systolic Length 2C 6.1 cm DOPPLER AV Peak Velocity 146.3 cm/s AV Peak Gradient 8.6 mmHg AV Mean Velocity 115.6 cm/s AV Mean Gradient 6.1 mmHg AV Velocity Time Integral 36.4 cm LVOT Peak Velocity 87.4 cm/s LVOT Peak Gradient 3.1 mmHg LVOT Velocity Time Integral 18.6 cm LVOT Stroke Volume 69.6 cm??? LVOT Stroke Volume Index 34.1 ml/m??? AV Area Cont Eq vti 1.9 cm??? AV Area Cont Eq pk 2.2 cm??? MV Peak Velocity 98.5 cm/s MV Peak Gradient 3.9 mmHg MV Mean Velocity 57.1 cm/s MV Mean Gradient 1.5 mmHg MV Velocity Time Integral 32.8 cm MR Peak Velocity 163.8 cm/s MR Peak Gradient 10.7 mmHg Mitral E Point Velocity 88.6 cm/s Mitral A Point Velocity 102.4 cm/s Mitral E to A Ratio 0.9 MV Deceleration Time 223.0 ms MV E' Velocity 4.1 cm/s Mitral E to MV E' Ratio 21.6 TR Peak Velocity 124.9 cm/s TR Peak Gradient 6.2 mmHg Right Ventricular Systolic Press 11.2 mmHg PV Peak Velocity 115.4 cm/s PV Peak Gradient 5.3 mmHg FINDINGS Left Ventricle Normal LV size and wall thickness. Left ventricular ejection fraction is estimated a 30-35%. Severe global hypokinesis Right Ventricle Normal right ventricular size. Right Atrium Normal right atrial size. Left Atrium Normal left atrial size. Mitral Valve Structurally normal mitral valve. Mild MR. Aortic Valve Trileaflet aortic valve. No aortic valve stenosis or regurgitation. Tricuspid Valve Tricuspid valve not well visualized. Mild TR. Pulmonic Valve Pulmonic valve not well visualized. No pulmonic regurgitation. Pericardium Normal pericardium. Aorta Normal size aortic root. CONCLUSIONS Technically difficult study. Definity ECHO contrast used for improved visualization of the endocardial borders (inadequate visualization of two or more contiguous segments). Severe global hypokinesis of the left ventricle Limited Doppler study with mild mitral and tricuspid regurgitation Previewed by: Dr. Torsten Jennings MD (Electronically Signed) Final Date: 29 July 2023 12:48
--- NOTE | 2023-07-29 12:58 | P.CRDCN ---
History of Present Illness History of present illness: HISTORY OF PRESENT ILLNESS: This is a 62-year-old male with a past medical history significant for nonischemic cardiomyopathy with AICD implantation, mild nonobstructive CAD, hypertension, hyperlipidemia, and morbid obesity. Patient follows in the office with Dr. Penn. We have been asked to see the patient in consultation for elevated troponins. Patient examined at the bedside in the emergency room. Patient presented to the hospital with a chief complaint of generalized weakness and feeling unwell. Apparently there has been some concern of confusion from the patient's although she is not present at the time of examination. The patient does report he has not been eating or drinking well at home. He currently denies any chest pain or pressure. He denies any shortness of breath. Vital signs are stable. Bedside telemetry reveals sinus mechanism. Patient's blood pressure was noted to be low upon admission to the hospital with a systolic range between 7090. Most recent blood pressure 115/53. DIAGNOSTICS: - EKG reveals sinus mechanism with left bundle branch block. - Chest xray negative for acute process. - Laboratory data: WBC 9.6. Hemoglobin 11.0. Platelet count 206. Sodium 134. Potassium 3.9. BUN 42. Creatinine 1.99. Troponin 0.049. 0.041. - Current home cardiac medications include aspirin 81 mg daily, Lipitor 10 mg at night, carvedilol 25 mg twice a day, Aldactone 25 mg daily, lisinopril 40 mg daily. - Echocardiogram completed revealing ejection fraction 30 to 35%, severe global hypokinesia, mild MR, mild TR - Cardiac catheterization history: 2016 revealing ejection fraction 35%, 50% ostial D1 lesion REVIEW OF SYSTEMS: At the time of my exam: CONSTITUTIONAL: Denies fever or chills. Reports generalized weakness HEENT: Denies blurred vision, vision changes, or eye pain. Denies hemoptysis CARDIOVASCULAR: Denies chest pain. Denies orthopnea. Denies PND. Denies palpitations RESPIRATORY: Denies shortness of breath. GASTROINTESTINAL: Denies abdominal pain. Denies nausea or vomiting. HEMATOLOGIC: Denies bleeding disorders. GENITOURINARY: Denies any blood in urine. SKIN: Denies pruitis. Denies rash. PHYSICAL EXAM: VITAL SIGNS: Reviewed. GENERAL: Well-developed in no acute distress. HEENT: Head is normocephalic. Pupils are equal, round. Sclerae anicteric. Mucous membranes of the mouth are moist. Neck supple. No JVD or thyromegaly LUNGS: Respirations even and unlabored. Lungs essentially clear to auscultation bilaterally. HEART: Regular rate and rhythm. S1 and S2 heard. Systolic murmur noted. ABDOMEN: Soft. Nondistended. Nontender. EXTREMITIES: Normal range of motion. No clubbing or cyanosis. Peripheral pulses intact. No lower extremity edema. Chronic skin discoloration noted. Dense of psoriasis noted on extremities. NEUROLOGIC: Awake and alert. Oriented x 3. ASSESSMENT: Generalized weakness with decreased oral intake Acute kidney injury Abnormal troponins, flat, secondary to above, no evidence of acute coronary syndrome History of nonischemic cardiomyopathy with AICD implantation Mild nonobstructive CAD Hypotension on admission, resolved Hypertension Hyperlipidemia Morbid obesity Psoriasis PLAN: 2D echo obtained and reviewed Resume home cardiac medications Hold lisinopril and Aldactone secondary to renal function Nephrology following for EMILY No further inpatient recommendations from a cardiac standpoint We will sign off. Please reconsult if needed. Nurse practitioner note has been reviewed by physician. Signing provider agrees with the documented findings, assessment, and plan of care documented by AGENCY CASHIER as a scribe. Past Medical History Additional Past Medical History / Comment(s): pt denies any medical issues- confirm with when she comes in - 07/28/2023 History of Any Multi-Drug Resistant Organisms: None Reported Past Surgical History: No Surgical Hx Reported Past Anesthesia/Blood Transfusion Reactions: No Reported Reaction Past Psychological History: No Psychological Hx Reported Smoking Status: Never smoker Past Alcohol Use History: None Reported Past Drug Use History: None Reported Medications and Allergies Home Medications Medication Instructions Recorded Confirmed Type Multivitamins, Thera [Multivitamin 1 tab PO BID 07/22/15 07/28/23 History (formulary)] Aspirin 81 mg PO DAILY 07/25/15 07/28/23 History Atorvastatin [Lipitor] 10 mg PO HS 12/30/15 07/28/23 History Carvedilol [Coreg] 25 mg PO BID 12/30/15 07/28/23 History Spironolactone [Aldactone] 25 mg PO DAILY 12/30/15 07/28/23 History lisinopriL 40 mg PO DAILY 05/11/23 07/28/23 History metFORMIN HCL [Glucophage] 500 mg PO DAILY 05/11/23 07/28/23 History Betamethasone Dipropionate 1 applic TOPICAL BID PRN 07/28/23 07/28/23 History [Diprolene 0.05% Cream (GEQ)] Calcipotriene 0.005% Cream 1 applic TOPICAL BID PRN 07/28/23 07/28/23 History Calcium Carbonate [Calcium] 600 mg PO BID 07/28/23 07/28/23 History Gabapentin [Neurontin] 300 mg PO BID 07/28/23 07/28/23 History Levothyroxine Sodium [Synthroid] 50 mcg PO DIRECTED 07/28/23 07/28/23 History Allergies Allergy/AdvReac Type Severity Reaction Status Date / Time No Known Allergies Allergy Verified 07/28/23 18:32 Physical Exam Vitals: Vital Signs Temp Pulse Pulse Resp BP BP Pulse Ox 07/29/23 08:42 97.1 F L 65 18 115/53 96 07/29/23 06:00 78 16 131/68 95 07/29/23 04:00 56 L 17 115/52 95 07/28/23 23:00 72 16 109/49 98 07/28/23 20:00 68 14 97/59 97 07/28/23 19:00 80 12 98/47 96 07/28/23 18:00 78 16 91/62 98 07/28/23 17:36 78 07/28/23 16:22 69 16 103/54 97 07/28/23 16:03 68 20 95/60 97 07/28/23 16:00 20 07/28/23 15:50 58 L 20 78/60 97 07/28/23 15:40 60 16 54/41 97 07/28/23 14:44 97.6 F 55 L 16 70/42 96 Intake and Output 07/28/23 07/29/23 07/29/23 22:59 06:59 14:59 Other: Weight 95.254 kg Results 07/29/23 08:30 07/29/23 08:30 Cardiac Enzymes 07/28/23 07/28/23 07/29/23 Range/Units 15:13 15:13 08:30 AST 51 116 H (17-59) U/L Troponin I 0.049 H* (0.000-0.034) ng/mL Coagulation 07/28/23 Range/Units 15:13 PT 11.4 (10.0-12.5) sec APTT 28.4 (22.0-30.0) sec CBC 07/28/23 07/29/23 Range/Units 15:13 08:30 WBC 12.5 H 9.6 (3.8-10.6) k/uL RBC 4.02 L 3.75 L (4.30-5.90) m/uL Hgb 11.7 L 11.0 L (13.0-17.5) gm/dL Hct 35.5 L 33.2 L (39.0-53.0) % Plt Count 272 206 (150-450) k/uL Comprehensive Metabolic Panel 07/28/23 07/29/23 Range/Units 15:13 08:30 Sodium 132 L 134 L (137-145) mmol/L Potassium 5.0 3.9 (3.5-5.1) mmol/L Chloride 99 105 (98-107) mmol/L Carbon Dioxide 19 L 19 L (22-30) mmol/L BUN 50 H 42 H (9-20) mg/dL Creatinine 2.75 H 1.99 H (0.66-1.25) mg/dL Glucose 149 H 124 H (74-99) mg/dL Calcium 10.2 8.7 (8.4-10.2) mg/dL AST 51 116 H (17-59) U/L ALT 50 H 58 H (4-49) U/L Alkaline Phosphatase 63 68 (38-126) U/L Total Protein 7.4 6.4 (6.3-8.2) g/dL Albumin 4.1 3.4 L (3.5-5.0) g/dL Current Medications Generic Name Dose Route Start Last Admin Trade Name Freq PRN Reason Stop Dose Admin Acetaminophen 650 mg 07/29/23 09:34 Acetaminophen Tab 325 Mg Tab PO Q6HR PRN Mild Pain or Fever > 100.5 Hydrocodone Bitart/Acetaminophen 1 each 07/29/23 09:34 Hydrocodone/Apap 5-325mg 1 Each Tab PO Q4HR PRN Moderate Pain (Scale 4 to 6) Al Hydroxide/Mg Hydroxide 15 ml 07/29/23 09:34 Mag Hydrox/Al Hydrox/Simeth 30 Ml Cup PO Q6HR PRN Indigestion Aspirin 81 mg 07/30/23 09:00 Aspirin 81 Mg PO DAILY [facility] Atorvastatin Calcium 10 mg 07/29/23 21:00 Atorvastatin 10 Mg Tab PO HS [facility] Calcium Carbonate/Glycine 500 mg 07/29/23 21:00 Calcium Carbonate 500 Mg Chewable PO BID [facility] Gabapentin 300 mg 07/29/23 21:00 Gabapentin 300 Mg Cap PO BID [facility] Sodium Chloride 1,000 mls @ 130 mls/hr 07/28/23 18:30 07/29/23 03:11 Saline 0.9% IV 130 mls/hr .[id number] [facility] Administration Melatonin 3 mg 07/29/23 09:34 Melatonin 3 Mg Tablet PO HS PRN Insomnia Morphine Sulfate 4 mg 07/28/23 18:25 Morphine Sulfate 4 Mg/Ml Syringe IV Q4HR PRN Severe Pain (Scale 7 to 10) Naloxone HCl 0.2 mg 07/28/23 18:25 Naloxone 0.4 Mg/Ml 1 Ml Vial IV Q2M PRN Opioid Reversal Naloxone HCl 0.2 mg 07/29/23 09:34 Naloxone 0.4 Mg/Ml 1 Ml Vial IV Q2M PRN Opioid Reversal Ondansetron HCl 4 mg 07/28/23 18:25 Ondansetron 4 Mg/2 Ml Vial IVP Q8HR PRN Nausea And Vomiting Temazepam 15 mg 07/29/23 09:34 Temazepam 15 Mg Cap PO HS PRN Insomnia Intake and Output 07/28/23 07/29/23 07/29/23 22:59 06:59 14:59 Other: Weight 95.254 kg Patient Weight 07/30/23 06:59 Weight 95.254 kg 07/29/23 08:30 07/29/23 08:30
[2023-07-29 17:21] LABS: Appearance,Urine Clear (Clear); Bacteria,Urine Rare /hpf; Bilirubin,Urine Negative (Negative); Blood,Urine Moderate (Negative); Color,Urine Colorless; Glucose,Urine (UA) Negative (Negative); Ketones,Urine Negative (Negative); Leukocyte Esterase,Urine Moderate (Negative); Mucus,Urine Rare /hpf; Nitrite,Urine Negative (Negative); PH, Urine 5.5 (5.0-8.0); Protein,Urine Trace (Negative); RBC,Urine 3 /hpf (0-5); Specific Gravity,Urine 1.011 (1.001-1.035); Urobilinogen,Urine <2.0 mg/dL (<2.0); WBC,Urine 29 /hpf (0-5)
[2023-07-29 17:24] LABS: Glucose,Whole Blood 141 mg/dL (70-110)
[2023-07-29 20:13] LABS: Glucose,Whole Blood 155 mg/dL (70-110)
[2023-07-29] MEDS: CALCIUM CARBONATE 500 MG CHEWABLE PO SCH (21:36)
[2023-07-29] MEDS: ATORVASTATIN 10 MG TAB PO SCH (21:36)
[2023-07-29] MEDS: GABAPENTIN 300 MG CAP PO SCH (21:36)
[2023-07-30 06:17] LABS: Glucose,Whole Blood 116 mg/dL (70-110)
[2023-07-30] MEDS: ASPIRIN 81 MG PO SCH (07:50)
[2023-07-30 08:36] LABS: Basophils % (A) 0 %; Eosinophils % (A) 0 %; HCT 32.1 % (39.0-53.0); HGB 10.7 gm/dL (13.0-17.5); Lymphocytes % (A) 9 %; MCH 29.7 pg (25.0-35.0); MCHC 33.2 g/dL (31.0-37.0); MCV 89.5 fL (80.0-100.0); Mean Platelet Volume 8.5; Monocytes # (A) 0.7 k/uL (0-1.0); Monocytes % (A) 7 %; Neutrophils # (A) 8.6 k/uL (1.3-7.7); Neutrophils % (A) 82 %; Platelet Count 216 k/uL (150-450); RBC 3.59 m/uL (4.30-5.90); RDW 13.5 % (11.5-15.5); WBC 10.5 k/uL (3.8-10.6)
[2023-07-30 08:55] LABS: ALT 52 U/L (4-49); AST 83 U/L (17-59); African American GFR (CKD) 67 (>60 ml/min/1.73 sqM); Albumin 3.1 g/dL (3.5-5.0); Alkaline Phosphatase 64 U/L (38-126); Anion Gap 9 mmol/L; Blood Urea Nitrogen 29 mg/dL (9-20); Calcium 8.7 mg/dL (8.4-10.2); Carbon Dioxide 20 mmol/L (22-30); Chloride 104 mmol/L (98-107); Globulin 3.1 g/dL; Glucose 110 mg/dL (74-99); Non-African American GFR(CKD) 58 (>60 ml/min/1.73 sqM); Sodium 133 mmol/L (137-145); Total Bilirubin 1.3 mg/dL (0.2-1.3); Total Protein 6.2 g/dL (6.3-8.2)
--- NOTE | 2023-07-30 11:40 | P.PN ---
Subjective Patient is seen for follow-up for acute kidney injury. Renal function has improved significantly. Creatinine down to 1.3 mg/dL. Patient has had good urine output. Objective - Vital Signs Vital signs: Vital Signs Temp 98.5 F 07/30/23 07:30 Pulse 98 07/30/23 07:30 Resp 17 07/30/23 07:30 BP 118/62 07/30/23 07:30 Pulse Ox 97 07/30/23 09:34 FiO2 Intake & Output 07/29/23 07/30/23 07/30/23 18:59 06:59 18:59 Intake Total 1560 Output Total 925 Balance -925 1560 Weight 95.254 kg 101 kg Intake: Intake, IV Titration 1560 Amount Sodium Chloride 0.9% 1, 1560 000 ml @ 130 mls/hr IV . Q7H42M [facility] Rx#:[id number] Output: Urine 925 Other: Voiding Method Urinal Diaper # Voids 1 - Exam Patient is awake, comfortable, no acute distress Examination of the heart S1 and S2 Examination of the lungs bilateral breath sounds are heard but decreased breath sounds at the bases Abdomen is soft obese nontender Examination of lower extremities shows no significant edema chronic skin changes noted with scaly patches of skin suggestive of psoriasis on upper and lower extremities [employer] exam grossly intact - Labs CBC & Chem 7: 07/30/23 07:43 07/30/23 07:43 Labs: Abnormal Lab Results - Last 24 Hours (Table) 07/29/23 07/29/23 07/29/23 Range/Units 11:59 12:04 16:25 RBC (4.30-5.90) m/uL Hgb (13.0-17.5) gm/dL Hct (39.0-53.0) % Neutrophils # (1.3-7.7) k/uL Sodium (137-145) mmol/L Carbon Dioxide (22-30) mmol/L BUN (9-20) mg/dL Creatinine (0.66-1.25) mg/dL Glucose (74-99) mg/dL POC Glucose (mg/dL) 133 H (70-110) mg/dL AST (17-59) U/L ALT (4-49) U/L Troponin I 0.037 H* (0.000-0.034) ng/mL Total Protein (6.3-8.2) g/dL Albumin (3.5-5.0) g/dL Urine Protein Trace H (Negative) Urine Blood Moderate H (Negative) Ur Leukocyte Esterase Moderate H (Negative) Urine WBC 29 H (0-5) /hpf Urine Bacteria Rare H (None) /hpf Urine Mucus Rare H (None) /hpf 07/29/23 07/29/23 07/30/23 Range/Units 17:23 20:10 06:14 RBC (4.30-5.90) m/uL Hgb (13.0-17.5) gm/dL Hct (39.0-53.0) % Neutrophils # (1.3-7.7) k/uL Sodium (137-145) mmol/L Carbon Dioxide (22-30) mmol/L BUN (9-20) mg/dL Creatinine (0.66-1.25) mg/dL Glucose (74-99) mg/dL POC Glucose (mg/dL) 141 H 155 H 116 H (70-110) mg/dL AST (17-59) U/L ALT (4-49) U/L Troponin I (0.000-0.034) ng/mL Total Protein (6.3-8.2) g/dL Albumin (3.5-5.0) g/dL Urine Protein (Negative) Urine Blood (Negative) Ur Leukocyte Esterase (Negative) Urine WBC (0-5) /hpf Urine Bacteria (None) /hpf Urine Mucus (None) /hpf 07/30/23 07/30/23 Range/Units 07:43 07:43 RBC 3.59 L (4.30-5.90) m/uL Hgb 10.7 L (13.0-17.5) gm/dL Hct 32.1 L (39.0-53.0) % Neutrophils # 8.6 H (1.3-7.7) k/uL Sodium 133 L (137-145) mmol/L Carbon Dioxide 20 L (22-30) mmol/L BUN 29 H (9-20) mg/dL Creatinine 1.30 H (0.66-1.25) mg/dL Glucose 110 H (74-99) mg/dL POC Glucose (mg/dL) (70-110) mg/dL AST 83 H (17-59) U/L ALT 52 H (4-49) U/L Troponin I (0.000-0.034) ng/mL Total Protein 6.2 L (6.3-8.2) g/dL Albumin 3.1 L (3.5-5.0) g/dL Urine Protein (Negative) Urine Blood (Negative) Ur Leukocyte Esterase (Negative) Urine WBC (0-5) /hpf Urine Bacteria (None) /hpf Urine Mucus (None) /hpf Assessment and Plan Assessment: 1. Acute kidney injury ATN, nonoliguric secondary to low blood pressure. UA shows trace protein and moderate blood and WBCs 29. CARLEY inhibitors currently on hold. ultrasound of the kidneys shows no evidence of hydronephrosis. Possible simple cyst on the left kidney. 2. metabolic acidosis associated with acute kidney injury and lactic acidosis. 3. Mildly elevated troponin 4. History of hypertension with blood pressure currently low. Plan: Patient is stable for discharge from nephrology standpoint. Continue to hold CARLEY inhibitor's as blood pressure is borderline. Okay to resume Aldactone. Repeat labs as outpatient in about 1-2 weeks.
[2023-07-30 11:42] LABS: Glucose,Whole Blood 160 mg/dL (70-110)
--- NOTE | 2023-07-30 12:41 | P.PN ---
Subjective Progress Note Date: 07/30/23 patient is a 62-year-old gentleman with past medical significant for hypertension, hyperlipidemia, diabetes mellitus presented to ER for generalized weakness. Patient stated that he has been complaining of generalized weakness and feeling of not being well for the last few weeks. Patient has been complai mary of being lightheaded and dizzy. Patient had poor appetite. Patient stated he had a lot of stress going on in his personal life. also noted the patient was confused at times. There was no complaint of fever or chills. No complaint of recent fall. Denied any chest pain or shortness of breath. There was no complaint of nausea, vomiting, pain. Because of the generalized weakness, patient came to the ER Initial lab work done in the ER showed WBC 12.5, hemoglobin 11.7, platelet count 272, sodium 132, potassium 5, BUN 50, creatinine 2.75, lactate 2.3, phosphorus 5.3, magnesium 2.9, bilirubin 1.4, troponin 0.049 Influenza A not detected Influenza B not detected RSV not detected COVID-19 not detected EKG done in the ER showed heart rate of 69, sinus rhythm, no ST segment elevation or depression seen, no T-wave inversions seen. Chest x-ray done in the ER no acute radiographic process Patient admitted to internal medicine service 07/30. Patient seen and examined. Lab work done this morning showed WBC 10.5, hemoglobin 10.7, platelet count 216, sodium 133, potassium 4, BUN 29, creatinine 1.30, glucose 110. Still complaining of lethargy and weakness REVIEW OF SYSTEMS: CONSTITUTIONAL: No fever, no malaise,. CARDIOVASCULAR: No chest pain, no palpitations, no syncope. PULMONARY: No shortness of breath, no cough, GASTROINTESTINAL: No diarrhea, no nausea, no vomiting, no abdominal pain. NEUROLOGICAL: No headaches, no weakness, PHYSICAL EXAMINATION: GENERAL: The patient is alert and oriented x3, not in any acute distress. Well developed, well nourished. HEENT: Pupils are round and equally reacting to light. EOMI. No scleral icterus. No conjunctival pallor. Normocephalic, atraumatic. No pharyngeal erythema. No thyromegaly. CARDIOVASCULAR: S1 and S2 present. No murmurs, rubs, or gallops. PULMONARY: Chest is clear to auscultation, no wheezing or crackles. ABDOMEN: Soft, nontender, nondistended, normoactive bowel sounds. No palpable organomegaly. MUSCULOSKELETAL: No joint swelling or deformity. EXTREMITIES: No cyanosis, clubbing, or pedal edema. NEUROLOGICAL: Gross neurological examination did not reveal any focal deficits. SKIN: No rashes. Assessment and plan Generalized weakness Acute kidney injury Elevated troponin Hypothyroidism Hypertension hyperlipidemia Monitor vital signs Monitor CBC Monitor CMP Continue telemetry monitoring Trend troponins. 2D echo Avoid nephrotoxic agents Continue IV fluids Hold lisinopril, and Aldactone Monitor blood sugar level, continue sliding insulin Nephrology following, did recommend resuming Aldactone at discharge Cardiology consulted, reviewed 2D echo, signed off Labs and medication were reviewed.. Continue same treatment. Continue with symptomatic treatment. Resume home medication. Monitor labs and vitals. DVT and GI prophylaxis. Further recommendations as per clinical course of the damien santos Dictation was produced using [email or web address] dictation software. please excuse any grammatical, word or spelling errors. Objective - Vital Signs Vital signs: Vital Signs Temp 98.5 F 07/30/23 07:30 Pulse 98 07/30/23 07:30 Resp 17 07/30/23 07:30 BP 118/62 07/30/23 07:30 Pulse Ox 97 07/30/23 09:34 FiO2 Intake & Output 07/29/23 07/30/23 07/30/23 18:59 06:59 18:59 Intake Total 1560 Output Total 925 Balance -925 1560 Weight 95.254 kg 101 kg Intake: Intake, IV Titration 1560 Amount Sodium Chloride 0.9% 1, 1560 000 ml @ 130 mls/hr IV . Q7H42M [facility] Rx#:[id number] Output: Urine 925 Other: Voiding Method Urinal Diaper # Voids 1 - Labs CBC & Chem 7: 07/30/23 07:43 07/30/23 07:43 Labs: Abnormal Lab Results - Last 24 Hours (Table) 07/29/23 07/29/23 07/29/23 Range/Units 09:50 11:59 12:04 RBC (4.30-5.90) m/uL Hgb (13.0-17.5) gm/dL Hct (39.0-53.0) % Neutrophils # (1.3-7.7) k/uL Sodium (137-145) mmol/L Carbon Dioxide (22-30) mmol/L BUN (9-20) mg/dL Creatinine (0.66-1.25) mg/dL Glucose (74-99) mg/dL POC Glucose (mg/dL) 133 H (70-110) mg/dL AST (17-59) U/L ALT (4-49) U/L Troponin I 0.041 H* 0.037 H* (0.000-0.034) ng/mL Total Protein (6.3-8.2) g/dL Albumin (3.5-5.0) g/dL Urine Protein (Negative) Urine Blood (Negative) Ur Leukocyte Esterase (Negative) Urine WBC (0-5) /hpf Urine Bacteria (None) /hpf Urine Mucus (None) /hpf 07/29/23 07/29/23 07/29/23 Range/Units 16:25 17:23 20:10 RBC (4.30-5.90) m/uL Hgb (13.0-17.5) gm/dL Hct (39.0-53.0) % Neutrophils # (1.3-7.7) k/uL Sodium (137-145) mmol/L Carbon Dioxide (22-30) mmol/L BUN (9-20) mg/dL Creatinine (0.66-1.25) mg/dL Glucose (74-99) mg/dL POC Glucose (mg/dL) 141 H 155 H (70-110) mg/dL AST (17-59) U/L ALT (4-49) U/L Troponin I (0.000-0.034) ng/mL Total Protein (6.3-8.2) g/dL Albumin (3.5-5.0) g/dL Urine Protein Trace H (Negative) Urine Blood Moderate H (Negative) Ur Leukocyte Esterase Moderate H (Negative) Urine WBC 29 H (0-5) /hpf Urine Bacteria Rare H (None) /hpf Urine Mucus Rare H (None) /hpf 07/30/23 07/30/23 07/30/23 Range/Units 06:14 07:43 07:43 RBC 3.59 L (4.30-5.90) m/uL Hgb 10.7 L (13.0-17.5) gm/dL Hct 32.1 L (39.0-53.0) % Neutrophils # 8.6 H (1.3-7.7) k/uL Sodium 133 L (137-145) mmol/L Carbon Dioxide 20 L (22-30) mmol/L BUN 29 H (9-20) mg/dL Creatinine 1.30 H (0.66-1.25) mg/dL Glucose 110 H (74-99) mg/dL POC Glucose (mg/dL) 116 H (70-110) mg/dL AST 83 H (17-59) U/L ALT 52 H (4-49) U/L Troponin I (0.000-0.034) ng/mL Total Protein 6.2 L (6.3-8.2) g/dL Albumin 3.1 L (3.5-5.0) g/dL Urine Protein (Negative) Urine Blood (Negative) Ur Leukocyte Esterase (Negative) Urine WBC (0-5) /hpf Urine Bacteria (None) /hpf Urine Mucus (None) /hpf
[2023-07-30 16:13] LABS: Glucose,Whole Blood 107 mg/dL (70-110)
[2023-07-30 20:01] LABS: Glucose,Whole Blood 153 mg/dL (70-110)
[2023-07-30] MEDS: MAG HYDROX/AL HYDROX/SIMETH 30 ML CUP PO PRN (21:58)
[2023-07-31 06:51] LABS: Glucose,Whole Blood 149 mg/dL (70-110)
[2023-07-31] MEDS: ONDANSETRON 4 MG/2 ML VIAL IVP PRN (06:53)
[2023-07-31 09:55] LABS: ALT 40 U/L (10-49); AST 47 U/L (14-35); Albumin 3.1 g/dL (3.8-4.9); Albumin/Globulin Ratio 1.07 Ratio (1.60-3.17); Alkaline Phosphatase 59 U/L (41-126); BUN/Creat Ratio 16.91 Ratio (12.00-20.00); Blood Urea Nitrogen 18.6 mg/dL (9.0-27.0); Calcium 8.4 mg/dL (8.7-10.3); Carbon Dioxide 22.2 mmol/L (21.6-31.8); Chloride 98 mmol/L (96-109); Globulin 2.9 g/dL (1.6-3.3); Glucose 140 mg/dL (70-110); Sodium 131 mmol/L (135-145)
[2023-07-31 10:14] LABS: Basophils # (A) 0.04 X 10*3/uL (0.00-0.10); Basophils % (A) 0.3 %; Eosinophils # (A) 0.01 X 10*3/uL (0.04-0.35); Eosinophils % (A) 0.1 %; HCT 31.7 % (39.6-50.0); HGB 10.6 g/dL (13.0-17.0); Lymphocytes # (A) 0.72 X 10*3/uL (0.90-5.00); Lymphocytes % (A) 5.9 %; MCH 29.4 pg (27.0-32.0); MCHC 33.4 g/dL (32.0-37.0); MCV 87.8 FL (80.0-97.0); Mean Platelet Volume 11.3 FL (9.5-12.2); Monocytes # (A) 1.07 X 10*3/uL (0.20-1.00); Monocytes % (A) 8.8 %; NRBC Per 100 WBC 0 X 10*3/uL (0.00-0.01); Neutrophils # (A) 10.28 X 10*3/uL (1.80-7.70); Neutrophils % (A) 84.3 %; Platelet Count 187 X 10*3/uL (140-440); RBC 3.61 X 10*6/uL (4.40-5.60); RBC Morphology Normal (Normal); RDW 13.1 % (11.5-14.5); WBC 12.19 X 10*3/uL (4.50-10.00)
--- NOTE | 2023-07-31 11:20 | XR ---
Abdomen. HISTORY: Vomiting. COMPARISON: None TECHNIQUE: 2 supine views of the abdomen obtained. FINDINGS: There is a large gas bubble in the stomach but the bowel gas pattern is nonspecific without evidence of obstruction. No suspicious abdominal or pelvic calcifications are seen. The osseous structures are grossly intact. The visualized lung bases are clear. IMPRESSION: Nonspecific abdomen without evidence of bowel obstruction..
[2023-07-31 11:21] LABS: Glucose,Whole Blood 182 mg/dL (70-110)
--- NOTE | 2023-07-31 11:50 | P.PN ---
Subjective Patient is seen for follow-up for acute kidney injury. Renal function has improved significantly. Creatinine down to 1.1 mg/dL. Patient has had good urine output. Complaining of nausea and vomiting today. Objective - Vital Signs Vital signs: Vital Signs Temp 99.0 F 07/31/23 07:45 Pulse 104 H 07/31/23 07:45 Resp 18 07/31/23 07:45 BP 142/72 07/31/23 07:45 Pulse Ox 98 07/31/23 07:45 FiO2 Intake & Output 07/30/23 07/31/23 07/31/23 18:59 06:59 18:59 Output Total 600 1 Balance -600 -1 Weight 102 kg Output: Urine 600 Emesis 1 Other: Voiding Method Diaper Incontinent # Voids 2 2 # Emeses 2 - Exam Patient is awake, comfortable, no acute distress Examination of the heart S1 and S2 Examination of the lungs bilateral breath sounds are heard but decreased breath sounds at the bases Abdomen is soft obese nontender Examination of lower extremities shows no significant edema chronic skin changes noted with scaly patches of skin suggestive of psoriasis on upper and lower extremities [employer] ENG[employer] exam grossly intact - Labs CBC & Chem 7: 07/31/23 06:46 07/31/23 06:46 Labs: Abnormal Lab Results - Last 24 Hours (Table) 07/30/23 07/30/23 07/31/23 Range/Units 07:43 19:25 06:46 WBC 12.19 H (4.50-10.00) X 10*3/uL RBC 3.61 L (4.40-5.60) X 10*6/uL Hgb 10.6 L (13.0-17.0) g/dL Hct 31.7 L (39.6-50.0) % Immature Gran # 0.07 H (0.00-0.04) X 10*3/uL Neutrophils # 10.28 H (1.80-7.70) X 10*3/uL Lymphocytes # 0.72 L (0.90-5.00) X 10*3/uL Monocytes # 1.07 H (0.20-1.00) X 10*3/uL Eosinophils # 0.01 L (0.04-0.35) X 10*3/uL Sodium (135-145) mmol/L Glucose (70-110) mg/dL POC Glucose (mg/dL) 153 H (70-110) mg/dL Hemoglobin A1c 6.1 H (<=6.0) % Calcium (8.7-10.3) mg/dL AST (14-35) U/L Total Protein (6.2-8.2) g/dL Albumin (3.8-4.9) g/dL Albumin/Globulin Ratio (1.60-3.17) Ratio 07/31/23 07/31/23 07/31/23 Range/Units 06:46 06:48 11:19 WBC (4.50-10.00) X 10*3/uL RBC (4.40-5.60) X 10*6/uL Hgb (13.0-17.0) g/dL Hct (39.6-50.0) % Immature Gran # (0.00-0.04) X 10*3/uL Neutrophils # (1.80-7.70) X 10*3/uL Lymphocytes # (0.90-5.00) X 10*3/uL Monocytes # (0.20-1.00) X 10*3/uL Eosinophils # (0.04-0.35) X 10*3/uL Sodium 131 L (135-145) mmol/L Glucose 140 H (70-110) mg/dL POC Glucose (mg/dL) 149 H 182 H (70-110) mg/dL Hemoglobin A1c (<=6.0) % Calcium 8.4 L (8.7-10.3) mg/dL AST 47 H (14-35) U/L Total Protein 6.0 L (6.2-8.2) g/dL Albumin 3.1 L (3.8-4.9) g/dL Albumin/Globulin Ratio 1.07 L (1.60-3.17) Ratio Assessment and Plan Assessment: 1. Acute kidney injury ATN, nonoliguric secondary to low blood pressure. UA shows trace protein and moderate blood and WBCs 29. CARLEY inhibitors currently on hold. ultrasound of the kidneys shows no evidence of hydronephrosis. Possible simple cyst on the left kidney. 2. metabolic acidosis associated with acute kidney injury and lactic acidosis. 3. Mildly elevated troponin 4. History of hypertension with blood pressure currently low. Plan: Continue IV fluids Continue to hold CARLEY inhibitor's as blood pressure is borderline. Okay to resume Aldactone. Repeat labs as outpatient in about 1-2 weeks.
--- NOTE | 2023-07-31 11:57 | P.PN ---
Subjective Progress Note Date: 07/31/23 patient is a 62-year-old gentleman with past medical significant for hypertension, hyperlipidemia, diabetes mellitus presented to ER for generalized weakness. Patient stated that he has been complaining of generalized weakness and feeling of not being well for the last few weeks. Patient has been complai mary of being lightheaded and dizzy. Patient had poor appetite. Patient stated he had a lot of stress going on in his personal life. also noted the patient was confused at times. There was no complaint of fever or chills. No complaint of recent fall. Denied any chest pain or shortness of breath. There was no complaint of nausea, vomiting, pain. Because of the generalized weakness, patient came to the ER Initial lab work done in the ER showed WBC 12.5, hemoglobin 11.7, platelet count 272, sodium 132, potassium 5, BUN 50, creatinine 2.75, lactate 2.3, phosphorus 5.3, magnesium 2.9, bilirubin 1.4, troponin 0.049 Influenza A not detected Influenza B not detected RSV not detected COVID-19 not detected EKG done in the ER showed heart rate of 69, sinus rhythm, no ST segment elevation or depression seen, no T-wave inversions seen. Chest x-ray done in the ER no acute radiographic process Patient admitted to internal medicine service 07/30. Patient seen and examined. Lab work done this morning showed WBC 10.5, hemoglobin 10.7, platelet count 216, sodium 133, potassium 4, BUN 29, creatinine 1.30, glucose 110. Still complaining of lethargy and weakness 07/31. Patient seen and examined. Complaining of nausea and vomiting, had 2 episodes of vomiting this morning. Ordered x-ray abdominal REVIEW OF SYSTEMS: CONSTITUTIONAL: No fever, no malaise,. CARDIOVASCULAR: No chest pain, no palpitations, no syncope. PULMONARY: No shortness of breath, no cough, GASTROINTESTINAL: No diarrhea, no abdominal pain. NEUROLOGICAL: No headaches, no weakness, PHYSICAL EXAMINATION: GENERAL: The patient is alert and oriented x3, not in any acute distress. Well developed, well nourished. HEENT: Pupils are round and equally reacting to light. EOMI. No scleral icterus. No conjunctival pallor. Normocephalic, atraumatic. No pharyngeal erythema. No thyromegaly. CARDIOVASCULAR: S1 and S2 present. No murmurs, rubs, or gallops. PULMONARY: Chest is clear to auscultation, no wheezing or crackles. ABDOMEN: Soft, nontender, nondistended, normoactive bowel sounds. No palpable organomegaly. MUSCULOSKELETAL: No joint swelling or deformity. EXTREMITIES: No cyanosis, clubbing, or pedal edema. NEUROLOGICAL: Gross neurological examination did not reveal any focal deficits. SKIN: No rashes. Assessment and plan Generalized weakness Acute kidney injury Elevated troponin Hypothyroidism Hypertension hyperlipidemia Monitor vital signs Monitor CBC Monitor CMP Continue telemetry monitoring Avoid nephrotoxic agents Continue IV fluids Continue antiemetics Ordered x-ray abdominal Hold lisinopril, and Aldactone Monitor blood sugar level, continue sliding insulin Nephrology following, did recommend resuming Aldactone at discharge Cardiology consulted, reviewed 2D echo, signed off Labs and medication were reviewed.. Continue same treatment. Continue with symptomatic treatment. Resume home medication. Monitor labs and vitals. DVT and GI prophylaxis. Further recommendations as per clinical course of the patient Dictation was produced using [employer] dictation software. please excuse any grammatical, word or spelling errors. Objective - Vital Signs Vital signs: Vital Signs Temp 99.0 F 07/31/23 07:45 Pulse 104 H 07/31/23 07:45 Resp 18 07/31/23 07:45 BP 142/72 07/31/23 07:45 Pulse Ox 98 07/31/23 07:45 FiO2 Intake & Output 07/30/23 07/31/23 07/31/23 18:59 06:59 18:59 Output Total 600 1 Balance -600 -1 Weight 102 kg Output: Urine 600 Emesis 1 Other: Voiding Method Diaper Incontinent # Voids 2 2 # Emeses 2 - Labs CBC & Chem 7: 07/31/23 06:46 07/31/23 06:46 Labs: Abnormal Lab Results - Last 24 Hours (Table) 07/30/23 07/30/23 07/30/23 Range/Units 07:43 11:41 19:25 POC Glucose (mg/dL) 160 H 153 H (70-110) mg/dL Hemoglobin A1c 6.1 H (<=6.0) % 07/31/23 Range/Units 06:48 POC Glucose (mg/dL) 149 H (70-110) mg/dL Hemoglobin A1c (<=6.0) %
[2023-07-31 16:32] LABS: Glucose,Whole Blood 137 mg/dL (70-110)
[2023-07-31 20:46] LABS: Glucose,Whole Blood 153 mg/dL (70-110)
[2023-08-01 06:42] LABS: Glucose,Whole Blood 171 mg/dL (70-110)
[2023-08-01 08:35] LABS: Basophils # (A) 0.04 X 10*3/uL (0.00-0.10); Basophils % (A) 0.2 %; Eosinophils # (A) 0.11 X 10*3/uL (0.04-0.35); Eosinophils % (A) 0.7 %; HCT 32.6 % (39.6-50.0); HGB 10.5 g/dL (13.0-17.0); Lymphocytes # (A) 0.56 X 10*3/uL (0.90-5.00); Lymphocytes % (A) 3.4 %; MCH 28.4 pg (27.0-32.0); MCHC 32.2 g/dL (32.0-37.0); MCV 88.1 FL (80.0-97.0); Mean Platelet Volume 11.7 FL (9.5-12.2); Monocytes # (A) 0.99 X 10*3/uL (0.20-1.00); Monocytes % (A) 5.9 %; NRBC Per 100 WBC 0 X 10*3/uL (0.00-0.01); Neutrophils % (A) 88.8 %; Platelet Count 199 X 10*3/uL (140-440); RDW 13.1 % (11.5-14.5); WBC 16.66 X 10*3/uL (4.50-10.00)
[2023-08-01] MEDS: PROCHLORPERAZINE INJ 10 MG/2 ML VIAL IVP PRN (09:50)
[2023-08-01] MEDS: PANTOPRAZOLE 40 MG/10 ML VIAL IVP SCH (11:12)
[2023-08-01 11:30] LABS: Glucose,Whole Blood 182 mg/dL (70-110)
--- NOTE | 2023-08-01 11:31 | P.PN ---
Subjective Progress Note Date: 08/01/23 patient is a 62-year-old gentleman with past medical significant for hypertension, hyperlipidemia, diabetes mellitus presented to ER for generalized weakness. Patient stated that he has been complaining of generalized weakness and feeling of not being well for the last few weeks. Patient has been complai mary of being lightheaded and dizzy. Patient had poor appetite. Patient stated he had a lot of stress going on in his personal life. also noted the patient was confused at times. There was no complaint of fever or chills. No complaint of recent fall. Denied any chest pain or shortness of breath. There was no complaint of nausea, vomiting, pain. Because of the generalized weakness, patient came to the ER Initial lab work done in the ER showed WBC 12.5, hemoglobin 11.7, platelet count 272, sodium 132, potassium 5, BUN 50, creatinine 2.75, lactate 2.3, phosphorus 5.3, magnesium 2.9, bilirubin 1.4, troponin 0.049 Influenza A not detected Influenza B not detected RSV not detected COVID-19 not detected EKG done in the ER showed heart rate of 69, sinus rhythm, no ST segment elevation or depression seen, no T-wave inversions seen. Chest x-ray done in the ER no acute radiographic process Patient admitted to internal medicine service 07/30. Patient seen and examined. Lab work done this morning showed WBC 10.5, hemoglobin 10.7, platelet count 216, sodium 133, potassium 4, BUN 29, creatinine 1.30, glucose 110. Still complaining of lethargy and weakness 07/31. Patient seen and examined. Complaining of nausea and vomiting, had 2 episodes of vomiting this morning. Ordered x-ray abdominal 08/01. Patient seen and examined. Still having nausea and vomiting, GI consulted. REVIEW OF SYSTEMS: CONSTITUTIONAL: No fever, no malaise,. CARDIOVASCULAR: No chest pain, no palpitations, no syncope. PULMONARY: No shortness of breath, no cough, GASTROINTESTINAL: No diarrhea, no abdominal pain. NEUROLOGICAL: No headaches, no weakness, PHYSICAL EXAMINATION: GENERAL: The patient is alert and oriented x3, not in any acute distress. Well developed, well nourished. HEENT: Pupils are round and equally reacting to light. EOMI. No scleral icterus. No conjunctival pallor. Normocephalic, atraumatic. No pharyngeal erythema. No thyromegaly. CARDIOVASCULAR: S1 and S2 present. No murmurs, rubs, or gallops. PULMONARY: Chest is clear to auscultation, no wheezing or crackles. ABDOMEN: Soft, nontender, nondistended, normoactive bowel sounds. No palpable organomegaly. MUSCULOSKELETAL: No joint swelling or deformity. EXTREMITIES: No cyanosis, clubbing, or pedal edema. NEUROLOGICAL: Gross neurological examination did not reveal any focal deficits. SKIN: No rashes. Assessment and plan Generalized weakness Acute kidney injury Elevated troponin Hypothyroidism Hypertension hyperlipidemia Monitor vital signs Monitor CBC Monitor CMP Continue telemetry monitoring Avoid nephrotoxic agents Continue IV fluids Continue antiemetics x-ray abdominal did not show any bowel abnormality Hold lisinopril, and Aldactone Monitor blood sugar level, continue sliding insulin Nephrology following, did recommend resuming Aldactone at discharge Cardiology consulted, reviewed 2D echo, signed off GI consulted Labs and medication were reviewed.. Continue same treatment. Continue with symptomatic treatment. Resume home medication. Monitor labs and vitals. DVT and GI prophylaxis. Further recommendations as per clinical course of the patient Dictation was produced using [employer] dictation software. please excuse any grammatical, word or spelling errors. Objective - Vital Signs Vital signs: Vital Signs Temp 98.7 F 08/01/23 07:23 Pulse 115 H 08/01/23 07:23 Resp 20 08/01/23 07:23 BP 128/70 08/01/23 07:23 Pulse Ox 95 08/01/23 07:23 FiO2 Intake & Output 07/31/23 08/01/23 08/01/23 18:59 06:59 18:59 Output Total 200 Balance -200 Weight 105 kg Output: Urine 200 Other: Voiding Method Diaper Incontinent # Voids 4 4 3 # Bowel Movements 1 # Emeses 1 - Labs CBC & Chem 7: 08/01/23 03:14 07/31/23 06:46 Labs: Abnormal Lab Results - Last 24 Hours (Table) 07/31/23 07/31/23 07/31/23 Range/Units 06:46 06:46 11:19 WBC 12.19 H (4.50-10.00) X 10*3/uL RBC 3.61 L (4.40-5.60) X 10*6/uL Hgb 10.6 L (13.0-17.0) g/dL Hct 31.7 L (39.6-50.0) % Immature Gran # 0.07 H (0.00-0.04) X 10*3/uL Neutrophils # 10.28 H (1.80-7.70) X 10*3/uL Lymphocytes # 0.72 L (0.90-5.00) X 10*3/uL Monocytes # 1.07 H (0.20-1.00) X 10*3/uL Eosinophils # 0.01 L (0.04-0.35) X 10*3/uL Sodium 131 L (135-145) mmol/L Glucose 140 H (70-110) mg/dL POC Glucose (mg/dL) 182 H (70-110) mg/dL Calcium 8.4 L (8.7-10.3) mg/dL AST 47 H (14-35) U/L Total Protein 6.0 L (6.2-8.2) g/dL Albumin 3.1 L (3.8-4.9) g/dL Albumin/Globulin Ratio 1.07 L (1.60-3.17) Ratio 07/31/23 07/31/23 08/01/23 Range/Units 16:31 20:44 03:14 WBC 16.66 H (4.50-10.00) X 10*3/uL RBC 3.70 L (4.40-5.60) X 10*6/uL Hgb 10.5 L (13.0-17.0) g/dL Hct 32.6 L (39.6-50.0) % Immature Gran # 0.16 H (0.00-0.04) X 10*3/uL Neutrophils # 14.80 H (1.80-7.70) X 10*3/uL Lymphocytes # 0.56 L (0.90-5.00) X 10*3/uL Monocytes # (0.20-1.00) X 10*3/uL Eosinophils # (0.04-0.35) X 10*3/uL Sodium (135-145) mmol/L Glucose (70-110) mg/dL POC Glucose (mg/dL) 137 H 153 H (70-110) mg/dL Calcium (8.7-10.3) mg/dL AST (14-35) U/L Total Protein (6.2-8.2) g/dL Albumin (3.8-4.9) g/dL Albumin/Globulin Ratio (1.60-3.17) Ratio 08/01/23 Range/Units 06:40 WBC (4.50-10.00) X 10*3/uL RBC (4.40-5.60) X 10*6/uL Hgb (13.0-17.0) g/dL Hct (39.6-50.0) % Immature Gran # (0.00-0.04) X 10*3/uL Neutrophils # (1.80-7.70) X 10*3/uL Lymphocytes # (0.90-5.00) X 10*3/uL Monocytes # (0.20-1.00) X 10*3/uL Eosinophils # (0.04-0.35) X 10*3/uL Sodium (135-145) mmol/L Glucose (70-110) mg/dL POC Glucose (mg/dL) 171 H (70-110) mg/dL Calcium (8.7-10.3) mg/dL AST (14-35) U/L Total Protein (6.2-8.2) g/dL Albumin (3.8-4.9) g/dL Albumin/Globulin Ratio (1.60-3.17) Ratio
[2023-08-01] MEDS: carvediloL 12.5 MG TAB PO SCH (11:34)
--- NOTE | 2023-08-01 11:35 | P.PN ---
Subjective Patient is seen in follow-up for acute kidney injury. Renal function improved from admission. Vomited this morning but feels better now. Receiving IV fluids. Vital signs are stable. General: No acute distress. HEENT: Head exam is unremarkable. LUNGS: No audible rhonchi or wheezes. HEART: Rate and Rhythm are regular. ABDOMEN: Nontender. EXTREMITITES: No edema. Objective - Vital Signs Vital signs: Vital Signs Temp 98.7 F 08/01/23 07:23 Pulse 115 H 08/01/23 08:20 Resp 20 08/01/23 08:20 BP 128/70 08/01/23 07:23 Pulse Ox 95 08/01/23 07:23 FiO2 Intake & Output 07/31/23 08/01/23 08/01/23 18:59 06:59 18:59 Output Total 200 Balance -200 Weight 105 kg Output: Urine 200 Other: Voiding Method Diaper Diaper Incontinent Incontinent # Voids 4 4 1 # Bowel Movements 1 # Emeses 1 2 - Labs CBC & Chem 7: 08/01/23 03:14 07/31/23 06:46 Labs: Abnormal Lab Results - Last 24 Hours (Table) 07/31/23 07/31/23 08/01/23 Range/Units 16:31 20:44 03:14 WBC 16.66 H (4.50-10.00) X 10*3/uL RBC 3.70 L (4.40-5.60) X 10*6/uL Hgb 10.5 L (13.0-17.0) g/dL Hct 32.6 L (39.6-50.0) % Immature Gran # 0.16 H (0.00-0.04) X 10*3/uL Neutrophils # 14.80 H (1.80-7.70) X 10*3/uL Lymphocytes # 0.56 L (0.90-5.00) X 10*3/uL POC Glucose (mg/dL) 137 H 153 H (70-110) mg/dL 08/01/23 08/01/23 Range/Units 06:40 11:29 WBC (4.50-10.00) X 10*3/uL RBC (4.40-5.60) X 10*6/uL Hgb (13.0-17.0) g/dL Hct (39.6-50.0) % Immature Gran # (0.00-0.04) X 10*3/uL Neutrophils # (1.80-7.70) X 10*3/uL Lymphocytes # (0.90-5.00) X 10*3/uL POC Glucose (mg/dL) 171 H 182 H (70-110) mg/dL Assessment and Plan Plan: Assessment: 1. Acute kidney injury secondary to vasomotor nephropathy from hypotension. Creatinine 2.75 on admission and down to 1.1 yesterday. No hydronephrosis noted on kidney ultrasound. 2. Benign hypertension. Controlled. 3. Metabolic acidosis secondary to acute kidney injury and lactic acidosis. Improved. 4. Hyponatremia secondary to hypovolemia and poor solute intake. 5. Chronic systolic CHF with ejection fraction of 30 to 35%. Plan: Decrease rate of normal saline to 75 cc an hour. Encouraged oral intake. Avoid nephrotoxins.
--- NOTE | 2023-08-01 16:11 | P.CONS ---
History of Present Illness - Reason for Consult Consult date: 08/01/23 Rule out GI bleed Requesting physician: Elif Castro - Chief Complaint Generalized weakness - History of Present Illness Muscle pleasant 62-year-old male who had presented to the emergency department 4 days ago with complaints of generalized weakness and fatigue. States that he is having significant increased amounts of stress and he is not taking very well care of himself and was concerned about him being confused at times as well. Patient was admitted with dehydration, hypotension and acute kidney injury. On this admission he was also diagnosed as new onset diabetes mellitus. Apparently he had some nausea and vomiting over the last 1 to 2 days and [facility] roenterology was consulted to rule out GI bleed. Patient denies any coffee- ground emesis or blood in his emesis. Denies any blood in his stool or black stool. He denies any shortness of breath, chest pain, abdominal pain, did have some nausea this morning and a little emesis which is currently and has basin and is liquid, light brown in color. Hemoglobin has been stable since admission and today is 10.5. Review of Systems REVIEW OF SYSTEMS: CARDIOPULMONARY: No chest pain or shortness of breath. Gastrointestinal: No abdominal pain. Nausea and vomiting for 1 to 2 days. No hematemesis, coffee-ground emesis. No rectal bleeding, or melena. GENITOURINARY: No dysuria or hematuria. MUSCULOSKELETAL: Reports normal range of motion. SKIN: No rashes. No jaundice. ENDOCRINE: No chills, fevers. No excessive weight gain or loss. No polydipsia or polyuria. PSYCHIATRIC: Unremarkable. NEUROLOGY: No change in mental status. Denies dizziness, headache. ENT: Vision unremarkable. CONSTITUTIONAL: No recent weight loss. No fever, chills, night sweats. Generali zed weakness. Past Medical History Additional Past Medical History / Comment(s): pt denies any medical issues- confirm with when she comes in - 07/28/2023 History of Any Multi-Drug Resistant Organisms: None Reported Past Surgical History: No Surgical Hx Reported Past Anesthesia/Blood Transfusion Reactions: No Reported Reaction Past Psychological History: No Psychological Hx Reported Smoking Status: Never smoker Past Alcohol Use History: None Reported Past Drug Use History: None Reported Medications and Allergies Home Medications Medication Instructions Recorded Confirmed Type Multivitamins, Thera [Multivitamin 1 tab PO BID 07/22/15 07/28/23 History (formulary)] Aspirin 81 mg PO DAILY 07/25/15 07/28/23 History Atorvastatin [Lipitor] 10 mg PO HS 12/30/15 07/28/23 History Carvedilol [Coreg] 25 mg PO BID 12/30/15 07/28/23 History Spironolactone [Aldactone] 25 mg PO DAILY 12/30/15 07/28/23 History lisinopriL 40 mg PO DAILY 05/11/23 07/28/23 History metFORMIN HCL [Glucophage] 500 mg PO DAILY 05/11/23 07/28/23 History Betamethasone Dipropionate 1 applic TOPICAL BID PRN 07/28/23 07/28/23 History [Diprolene 0.05% Cream (GEQ)] Calcipotriene 0.005% Cream 1 applic TOPICAL BID PRN 07/28/23 07/28/23 History Calcium Carbonate [Calcium] 600 mg PO BID 07/28/23 07/28/23 History Gabapentin [Neurontin] 300 mg PO BID 07/28/23 07/28/23 History Levothyroxine Sodium [Synthroid] 50 mcg PO DIRECTED 07/28/23 07/28/23 History Allergies Allergy/AdvReac Type Severity Reaction Status Date / Time No Known Allergies Allergy Verified 07/28/23 18:32 Physical Exam Vitals: Vital Signs Temp Pulse Resp BP Pulse Ox 08/01/23 07:23 98.7 F 115 H 20 128/70 95 08/01/23 01:15 97.7 F 79 14 120/55 95 07/31/23 20:26 99.6 F 109 H 14 145/66 98 07/31/23 19:45 109 H 14 07/31/23 14:00 98.2 F 97 18 107/53 98 Intake and Output 07/31/23 08/01/23 08/01/23 22:59 06:59 14:59 Output Total 200 Balance -200 Output: Urine 200 Other: Voiding Method Diaper Incontinent # Voids 4 3 # Bowel Movements 1 # Emeses 1 Weight 105 kg General appearance: The patient is alert, oriented, appears in no acute distress. HET: Head is normocephalic and atraumatic. Conjunctiva pink. Sclera anicteric. Neck: Supple without lymphadenopathy. Trachea midline. Heart: Regular. Lungs: Equal expansion, normal respiratory effort. Abdomen: Soft, nontender, nondistended with bowel sounds. No guarding or rigidity. Skin: No rashes. No jaundice. Extremities: Normal skin color and turgor. No pedal edema. Neurological: No focal deficits. Alert and oriented x3. Results CBC & Chem 7: 08/01/23 03:14 07/31/23 06:46 Labs: Abnormal Lab Results - Last 24 Hours (Table) 07/31/23 07/31/23 07/31/23 Range/Units 06:46 06:46 11:19 WBC 12.19 H (4.50-10.00) X 10*3/uL RBC 3.61 L (4.40-5.60) X 10*6/uL Hgb 10.6 L (13.0-17.0) g/dL Hct 31.7 L (39.6-50.0) % Immature Gran # 0.07 H (0.00-0.04) X 10*3/uL Neutrophils # 10.28 H (1.80-7.70) X 10*3/uL Lymphocytes # 0.72 L (0.90-5.00) X 10*3/uL Monocytes # 1.07 H (0.20-1.00) X 10*3/uL Eosinophils # 0.01 L (0.04-0.35) X 10*3/uL Sodium 131 L (135-145) mmol/L Glucose 140 H (70-110) mg/dL POC Glucose (mg/dL) 182 H (70-110) mg/dL Calcium 8.4 L (8.7-10.3) mg/dL AST 47 H (14-35) U/L Total Protein 6.0 L (6.2-8.2) g/dL Albumin 3.1 L (3.8-4.9) g/dL Albumin/Globulin Ratio 1.07 L (1.60-3.17) Ratio 07/31/23 07/31/23 08/01/23 Range/Units 16:31 20:44 03:14 WBC 16.66 H (4.50-10.00) X 10*3/uL RBC 3.70 L (4.40-5.60) X 10*6/uL Hgb 10.5 L (13.0-17.0) g/dL Hct 32.6 L (39.6-50.0) % Immature Gran # 0.16 H (0.00-0.04) X 10*3/uL Neutrophils # 14.80 H (1.80-7.70) X 10*3/uL Lymphocytes # 0.56 L (0.90-5.00) X 10*3/uL Monocytes # (0.20-1.00) X 10*3/uL Eosinophils # (0.04-0.35) X 10*3/uL Sodium (135-145) mmol/L Glucose (70-110) mg/dL POC Glucose (mg/dL) 137 H 153 H (70-110) mg/dL Calcium (8.7-10.3) mg/dL AST (14-35) U/L Total Protein (6.2-8.2) g/dL Albumin (3.8-4.9) g/dL Albumin/Globulin Ratio (1.60-3.17) Ratio 08/01/23 Range/Units 06:40 WBC (4.50-10.00) X 10*3/uL RBC (4.40-5.60) X 10*6/uL Hgb (13.0-17.0) g/dL Hct (39.6-50.0) % Immature Gran # (0.00-0.04) X 10*3/uL Neutrophils # (1.80-7.70) X 10*3/uL Lymphocytes # (0.90-5.00) X 10*3/uL Monocytes # (0.20-1.00) X 10*3/uL Eosinophils # (0.04-0.35) X 10*3/uL Sodium (135-145) mmol/L Glucose (70-110) mg/dL POC Glucose (mg/dL) 171 H (70-110) mg/dL Calcium (8.7-10.3) mg/dL AST (14-35) U/L Total Protein (6.2-8.2) g/dL Albumin (3.8-4.9) g/dL Albumin/Globulin Ratio (1.60-3.17) Ratio Comments: Nominal x-ray 1 nonspecific abdomen without evidence of bowel obstruction Assessment and Plan (1) Nausea and vomiting Narrative/Plan: 62-year-old male who presented to the emergency department for generalized weakness diagnosed with dehydration, acute kidney injury and diabetes mellitus. Patient started having some nausea and vomiting yesterday and continued this morning. However denies any coffee-ground emesis or black stool or blood in his stool yet gastroenterology was consulted for possible GI bleed. Hemoglobin 11.7 on admission and currently 10.5 without any evidence of lower GI bleed. No plans on endoscopic evaluation. Nausea and vomiting improved with antiemetics. Unclear etiology of nausea and vomiting will continue to monitor. Current Visit: Yes Status: Acute Code(s): R11.2 - NAUSEA WITH VOMITING, UNSPECIFIED SNOMED Code(s): 03758510 (2) EMILY (acute kidney injury) Current Visit: Yes Status: Acute Code(s): N17.9 - ACUTE KIDNEY FAILURE, UNSPECIFIED SNOMED Code(s): 81190262 (3) Dehydration Current Visit: Yes Status: Acute Code(s): E86.0 - DEHYDRATION SNOMED Code(s): 96267562 (4) Heart failure Current Visit: No Status: Acute Code(s): I50.9 - HEART FAILURE, UNSPECIFIED SNOMED Code(s): 82940739 (5) Leukocytosis Current Visit: Yes Status: Acute Code(s): D72.829 - ELEVATED WHITE BLOOD CELL COUNT, UNSPECIFIED SNOMED Code(s): 854037280 Plan: 1. Continue symptomatic and supportive care 2. Continue antiemetics as ordered 3. Diet as tolerated 4. No plans on endoscopic evaluation at this time. Continue to monitor for signs of GI bleed Thank you for this consultation, we will continue to follow. Dr. Hiren Neville I agree with the dictator's note, documented as a scribe by Sharon DANG.
[2023-08-01 16:21] LABS: Glucose,Whole Blood 145 mg/dL (70-110)
[2023-08-01 20:53] LABS: Glucose,Whole Blood 164 mg/dL (70-110)
[2023-08-02 05:46] LABS: Glucose,Whole Blood 131 mg/dL (70-110)
[2023-08-02 07:48] VITALS: BP 120/71; PULSE 63; RESP 17; TEMP 97.8
--- NOTE | 2023-08-02 09:48 | P.PN ---
Subjective Progress Note Date: 08/02/23 Principal diagnosis: Nausea and vomiting This is a pleasant 62-year-old male who had presented to the emergency department 4 days ago with complaints of generalized weakness and fatigue. States that he is having significant increased amounts of stress and he is not taking very well care of himself and was concerned about him being confused at times as well. Patient was admitted with dehydration, hypotension and acute kidney injury. On this admission he was also diagnosed as new onset diabetes mellitus. Apparently he had some nausea and vomiting over the last 1 to 2 days and gastroenterology was consulted to rule out GI bleed. Patient denies any coffee-ground emesis or blood in his emesis. Denies any blood in his stool or black stool. He denies any shortness of breath, chest pain, abdominal pain, did have some nausea this morning and a little emesis which is currently and has basin and is liquid, light brown in color. Hemoglobin has been stable since ad mission and today is 10.5. 08/02/2023 Patient is seen and examined today as a follow-up. States he did not eat much yesterday just because he was nervous about vomiting. He had oatmeal this morning without any nausea or vomiting to follow-up. No complaints of hematemesis coffee-ground emesis, dark stool or blood in his stool. He denies any abdominal pain, fevers or chills. Objective - Vital Signs Vital signs: Vital Signs Temp 97.8 F 08/02/23 07:35 Pulse 63 08/02/23 07:35 Resp 17 08/02/23 07:35 BP 120/71 08/02/23 07:35 Pulse Ox 97 08/02/23 07:35 FiO2 Intake & Output 08/01/23 08/02/23 08/02/23 18:59 06:59 18:59 Intake Total 1050 900 Output Total 200 1300 Balance 850 -400 Weight 106 kg Intake: Intake, IV Titration 600 Amount Sodium Chloride 0.9% 1, 600 000 ml @ 75 mls/hr IV . [id number] [facility] Rx#:[id number] Oral 450 900 Output: Urine 200 1300 Other: Voiding Method Diaper Diaper Incontinent Incontinent External Catheter # Voids 3 # Bowel Movements 1 # Emeses 1 - Exam General appearance: The patient is alert, oriented, appears in no acute distres s. HET: Head is normocephalic and atraumatic. Conjunctiva pink. Sclera anicteric. Neck: Supple without lymphadenopathy. Abdomen: Soft, nontender, nondistended with bowel sounds. No guarding or rigidity. Extremities: Normal skin color and turgor. No pedal edema Skin: No rashes, no jaundice Neurological: No focal deficits. Alert and oriented. - Labs CBC & Chem 7: 08/01/23 03:14 07/31/23 06:46 Labs: Abnormal Lab Results - Last 24 Hours (Table) 08/01/23 08/01/23 08/01/23 Range/Units 11:29 16:20 20:51 POC Glucose (mg/dL) 182 H 145 H 164 H (70-110) mg/dL 08/02/23 Range/Units 05:44 POC Glucose (mg/dL) 131 H (70-110) mg/dL Assessment and Plan (1) Nausea and vomiting Narrative/Plan: 62-year-old male who presented to the emergency department for generalized weakness diagnosed with dehydration, acute kidney injury and diabetes mellitus. Patient started having some nausea and vomiting yesterday and continued this morning. However denies any coffee-ground emesis or black stool or blood in his stool yet gastroenterology was consulted for possible GI bleed. Hemoglobin 11.7 on admission and currently 10.5 without any evidence of lower GI bleed. No plans on endoscopic evaluation. Nausea and vomiting improved with antiemetics. Unclear etiology of nausea and vomiting, however currently resolved. Current Visit: Yes Status: Acute Code(s): R11.2 - NAUSEA WITH VOMITING, UNSPECIFIED SNOMED Code(s): 37976720 (2) EMILY (acute kidney injury) Current Visit: Yes Status: Acute Code(s): N17.9 - ACUTE KIDNEY FAILURE, UNSPECIFIED SNOMED Code(s): 97461040 (3) Dehydration Current Visit: Yes Status: Acute Code(s): E86.0 - DEHYDRATION SNOMED Code(s): 26040527 (4) Heart failure Current Visit: No Status: Acute Code(s): I50.9 - HEART FAILURE, UNSPECIFIED SNOMED Code(s): 67236981 (5) Leukocytosis Current Visit: Yes Status: Acute Code(s): D72.829 - ELEVATED WHITE BLOOD CELL COUNT, UNSPECIFIED SNOMED Code(s): 873782545 Plan: 1. Continue symptomatic and supportive care 2. Continue antiemetics as ordered. Protonix ordered. 3. Diet as tolerated 4. Nausea and vomiting improved. No signs of GI bleed. No plans on endoscopic evaluation at this time. Thank you for this consultation, patient is cleared for discharge from gastroenterology. We will sign off at this time. Dr. Hiren Neville I agree with the dictator's note, documented as a scribe by Sharon Hernandez.
--- NOTE | 2023-08-02 11:11 | P.PN ---
Subjective Patient is seen in follow-up for acute kidney injury. Renal function improved from admission. Receiving IV fluids. No active complaints. Now on regular diet. Vital signs are stable. General: No acute distress. HEENT: Head exam is unremarkable. LUNGS: No audible rhonchi or wheezes. HEART: Rate and Rhythm are regular. ABDOMEN: Nontender. EXTREMITITES: No edema. Objective - Vital Signs Vital signs: Vital Signs Temp 97.8 F 08/02/23 07:35 Pulse 63 08/02/23 07:35 Resp 17 08/02/23 07:35 BP 120/71 08/02/23 07:35 Pulse Ox 97 08/02/23 07:35 FiO2 Intake & Output 08/01/23 08/02/23 08/02/23 18:59 06:59 18:59 Intake Total 1050 900 Output Total 200 1300 Balance 850 -400 Weight 106 kg Intake: Intake, IV Titration 600 Amount Sodium Chloride 0.9% 1, 600 000 ml @ 75 mls/hr IV . [id number] [facility] Rx#:[id number] Oral 450 900 Output: Urine 200 1300 Other: Voiding Method Diaper Diaper Incontinent Incontinent External Catheter # Voids 3 # Bowel Movements 1 # Emeses 1 - Labs CBC & Chem 7: 08/01/23 03:14 07/31/23 06:46 Labs: Abnormal Lab Results - Last 24 Hours (Table) 08/01/23 08/01/23 08/01/23 Range/Units 11:29 16:20 20:51 POC Glucose (mg/dL) 182 H 145 H 164 H (70-110) mg/dL 08/02/23 Range/Units 05:44 POC Glucose (mg/dL) 131 H (70-110) mg/dL Assessment and Plan Plan: Assessment: 1. Acute kidney injury secondary to vasomotor nephropathy from hypotension. Creatinine 2.75 on admission and down to 1.1 dated July 31, 2022. No hydronephrosis noted on kidney ultrasound. 2. Benign hypertension. Controlled. 3. Metabolic acidosis secondary to acute kidney injury and lactic acidosis. Improved. 4. Hyponatremia secondary to hypovolemia and poor solute intake. 5. Chronic systolic CHF with ejection fraction of 30 to 35%. Plan: Hep-Lock IV fluids. Encouraged oral intake. Avoid nephrotoxins. Follow-up outpatient 1 week postdischarge. If potassium level stable, Aldactone may be resumed.
[2023-08-02 11:34] LABS: Magnesium 1.7 mg/dL (1.5-2.4)
[2023-08-02 11:41] LABS: ALT 73 U/L (10-49); AST 74 U/L (14-35); Albumin 2.9 g/dL (3.8-4.9); Alkaline Phosphatase 81 U/L (41-126); Blood Urea Nitrogen 21.6 mg/dL (9.0-27.0); Calcium 8.6 mg/dL (8.7-10.3); Chloride 95 mmol/L (96-109); Globulin 2.9 g/dL (1.6-3.3); Glucose 128 mg/dL (70-110); Potassium 3.9 mmol/L (3.5-5.5); Sodium 131 mmol/L (135-145); Total Bilirubin 0.9 mg/dL (0.3-1.2); Total Protein 5.8 g/dL (6.2-8.2)
[2023-08-02 11:51] LABS: HCT 31.8 % (39.6-50.0); HGB 10.5 g/dL (13.0-17.0); MCH 28.7 pg (27.0-32.0); MCV 86.9 FL (80.0-97.0); Mean Platelet Volume 11.5 FL (9.5-12.2); NRBC Per 100 WBC 0 X 10*3/uL (0.00-0.01); Platelet Count 237 X 10*3/uL (140-440); RBC 3.66 X 10*6/uL (4.40-5.60); RDW 13.2 % (11.5-14.5); WBC 17.69 X 10*3/uL (4.50-10.00)
--- NOTE | 2023-08-02 12:09 | P.DS ---
Providers Date of admission: 07/28/23 18:26 Expected date of discharge: 08/02/23 Attending physician: Christelle Cain Consults: 07/28/23 18:23 Consult Physician Routine Consulting Provider: Vitaly Chance Consult Reason/Comments: sylvia Do you want consulting provider notified?: Yes 08/01/23 03:01 Consult Physician Routine Consulting Provider: Krissy Neville Consult Reason/Comments: rule out GI bleed Do you want consulting provider notified?: Yes, Notify in am Primary care physician: Yahaira Foote [place] [facility] Course: Discharge diagnoses; Generalized weakness Acute kidney injury Nausea and vomiting resolved Elevated troponin Hypothyroidism Hypertension hyperlipidemia Hospital course; patient is a 62-year-old gentleman with past medical significant for hypertension, hyperlipidemia, diabetes mellitus presented to ER for generalized weakness. Patient stated that he has been complaining of generalized weakness and feeling of not being well for the last few weeks. Patient has been complaining of being lightheaded and dizzy. Patient had poor appetite. Patient stated he had a lot of stress going on in his personal life. also noted the patient was confused at times. There was no complaint of fever or chills. No complaint of recent fall. Denied any chest pain or shortness of breath. There was no complaint of nausea, vomiting, pain. Because of the generalized weakness, patient came to the ER Initial lab work done in the ER showed WBC 12.5, hemoglobin 11.7, platelet count 272, sodium 132, potassium 5, BUN 50, creatinine 2.75, lactate 2.3, phosphorus 5.3, magnesium 2.9, bilirubin 1.4, troponin 0.049 Influenza A not detected Influenza B not detected RSV not detected COVID-19 not detected EKG done in the ER showed heart rate of 69, sinus rhythm, no ST segment elevation or depression seen, no T-wave inversions seen. Chest x-ray done in the ER no acute radiographic process Patient admitted to internal medicine service 07/30. Patient seen and examined. Lab work done this morning showed WBC 10.5, hemoglobin 10.7, platelet count 216, sodium 133, potassium 4, BUN 29, creatinine 1.30, glucose 110. Still complaining of lethargy and weakness 07/31. Patient seen and examined. Complaining of nausea and vomiting, had 2 episodes of vomiting this morning. Ordered x-ray abdominal 08/01. Patient seen and examined. Still having nausea and vomiting, GI consulted. 08/02. Patient seen and examined. nausea and vomiting has resolved, GI evaluated patient, recommend no endoscopy at this time. Nephrology following, recommended discharging patient on Aldactone but discontinued lisinopril. PHYSICAL EXAMINATION: GENERAL: The patient is alert and oriented x3, not in any acute distress. Well developed, well nourished. HEENT: Pupils are round and equally reacting to light. EOMI. No scleral icterus. No conjunctival pallor. Normocephalic, atraumatic. No pharyngeal erythema. No thyromegaly. CARDIOVASCULAR: S1 and S2 present. No murmurs, rubs, or gallops. PULMONARY: Chest is clear to auscultation, no wheezing or crackles. ABDOMEN: Soft, nontender, nondistended, normoactive bowel sounds. No palpable organomegaly. MUSCULOSKELETAL: No joint swelling or deformity. EXTREMITIES: No cyanosis, clubbing, or pedal edema. NEUROLOGICAL: Gross neurological examination did not reveal any focal deficits. SKIN: No rashes. Dictation was produced using [employer] dictation software. please excuse any grammatical, word or spelling errors. Patient Condition at Discharge: Fair Plan - Discharge Summary New Discharge Prescriptions: New Pantoprazole Sodium [Protonix] 40 mg PO DAILY 30 Days #30 tab Ondansetron Odt [Zofran Odt] 4 mg PO Q8HR PRN 7 Days #21 tab PRN Reason: Nausea Continue Multivitamins, Thera [Multivitamin (formulary)] 1 tab PO BID Aspirin 81 mg PO DAILY Carvedilol [Coreg] 25 mg PO BID Atorvastatin [Lipitor] 10 mg PO HS Spironolactone [Aldactone] 25 mg PO DAILY metFORMIN HCL [Glucophage] 500 mg PO DAILY Levothyroxine Sodium [Synthroid] 50 mcg PO DIRECTED Gabapentin [Neurontin] 300 mg PO BID Calcium Carbonate [Calcium] 600 mg PO BID Betamethasone Dipropionate [Diprolene 0.05% Cream (GEQ)] 1 applic TOPICAL BID PRN PRN Reason: Rash Calcipotriene 0.005% Cream 1 applic TOPICAL BID PRN PRN Reason: Rash Discontinued lisinopriL 40 mg PO DAILY Discharge Medication List Multivitamins, Thera [Multivitamin (formulary)] 1 tab PO BID 07/22/15 [History] Aspirin 81 mg PO DAILY 07/25/15 [History] Atorvastatin [Lipitor] 10 mg PO HS 12/30/15 [History] Carvedilol [Coreg] 25 mg PO BID 12/30/15 [History] Spironolactone [Aldactone] 25 mg PO DAILY 12/30/15 [History] metFORMIN HCL [Glucophage] 500 mg PO DAILY 05/11/23 [History] Betamethasone Dipropionate [Diprolene 0.05% Cream (GEQ)] 1 applic TOPICAL BID PRN 07/28/23 [History] Calcipotriene 0.005% Cream 1 applic TOPICAL BID PRN 07/28/23 [History] Calcium Carbonate [Calcium] 600 mg PO BID 07/28/23 [History] Gabapentin [Neurontin] 300 mg PO BID 07/28/23 [History] Levothyroxine Sodium [Synthroid] 50 mcg PO DIRECTED 07/28/23 [History] Ondansetron Odt [Zofran Odt] 4 mg PO Q8HR PRN 7 Days #21 tab 08/02/23 [Rx] Pantoprazole Sodium [Protonix] 40 mg PO DAILY 30 Days #30 tab 08/02/23 [Rx] Follow up Appointment(s)/Referral(s): Yahaira Foote MD [Primary Care Provider] - 08/04/23 10:30 am Patient Instructions/Handouts: Acute Kidney Injury (DC), Acute Nausea and Vomiting (DC) Discharge Disposition: HOME SELF-CARE
== END 2023-08-02 12:57 | disposition home or self-care (01) | DRG 683 ==
LOC: EC 14:24 → 3SCARD 18:26 → 5NMEDONC 07-29 10:40 → 4SSUR 07-29 14:11
PROVIDERS: ADMIT Hospitalist; ATTEND Hospitalist
DX: N17.0 Acute kidney failure with tubular necrosis (principal); E87.1 Hypo-osmolality and hyponatremia; I42.8 Other cardiomyopathies; I50.22 Chronic systolic (congestive) heart failure; E87.20 Acidosis, unspecified; I95.9 Hypotension, unspecified; I44.7 Left bundle-branch block, unspecified; L40.9 Psoriasis, unspecified; I25.10 Atherosclerotic heart disease of native coronary artery without angina pectoris; I11.0 Hypertensive heart disease with heart failure; E86.1 Hypovolemia; E86.0 Dehydration; E66.01 Morbid (severe) obesity due to excess calories; R79.89 Other specified abnormal findings of blood chemistry; Z68.37 Body mass index [BMI] 37.0-37.9, adult; E11.9 Type 2 diabetes mellitus without complications; E03.9 Hypothyroidism, unspecified; D72.829 Elevated white blood cell count, unspecified; E78.5 Hyperlipidemia, unspecified; Z79.82 Long term (current) use of aspirin; Z79.84 Long term (current) use of oral hypoglycemic drugs; Z79.890 Hormone replacement therapy; Z79.899 Other long term (current) drug therapy; Z11.52 Encounter for screening for COVID-19
CPT/HCPCS: 36415; 71045; 74018; 76770; 80053; 81001; 83036; 83605; 83735; 83880; 84100; 84484; 85025; 85027; 85610; 85730; 87636; 93005; 93306; 94760; 96360; 96361; 99291

== ENCOUNTER 2023-08-02 14:00 | Observation (INO) | payer BC ==
--- NOTE | 2023-08-02 14:41 | ED ---
General Adult HPI - General Chief complaint: Weakness Stated complaint: Weakness Time Seen by Provider: 08/02/23 14:10 Source: patient, EMS, RN notes reviewed, old records reviewed Mode of arrival: EMS Limitations: no limitations - History of Present Illness Initial comments: This is a 62-year-old male who presents to the emergency department stating he is too weak to get up into the house. Patient was just discharged out of the hospital an hour ago but was too weak and Boutt so he comes back to the emergency department. Patient states that he has no new complaints he is just too weak to be discharged to his home and he would like rehabilitation. - Related Data Home Medications Medication Instructions Recorded Confirmed Multivitamins, Thera [Multivitamin 1 tab PO BID 07/22/15 07/28/23 (formulary)] Aspirin 81 mg PO DAILY 07/25/15 07/28/23 Atorvastatin [Lipitor] 10 mg PO HS 12/30/15 07/28/23 Carvedilol [Coreg] 25 mg PO BID 12/30/15 07/28/23 Spironolactone [Aldactone] 25 mg PO DAILY 12/30/15 07/28/23 metFORMIN HCL [Glucophage] 500 mg PO DAILY 05/11/23 07/28/23 Betamethasone Dipropionate 1 applic TOPICAL BID PRN 07/28/23 07/28/23 [Diprolene 0.05% Cream (GEQ)] Calcipotriene 0.005% Cream 1 applic TOPICAL BID PRN 07/28/23 07/28/23 Calcium Carbonate [Calcium] 600 mg PO BID 07/28/23 07/28/23 Gabapentin [Neurontin] 300 mg PO BID 07/28/23 07/28/23 Levothyroxine Sodium [Synthroid] 50 mcg PO DIRECTED 07/28/23 07/28/23 Previous Rx's Medication Instructions Recorded Ondansetron Odt [Zofran Odt] 4 mg PO Q8HR PRN 7 Days #21 tab 08/02/23 Pantoprazole Sodium [Protonix] 40 mg PO DAILY 30 Days #30 tab 08/02/23 Allergies Allergy/AdvReac Type Severity Reaction Status Date / Time No Known Allergies Allergy Verified 08/02/23 14:15 Review of Systems ROS Statement: Those systems with pertinent positive or pertinent negative responses have been documented in the HPI. ROS Other: All systems not noted in ROS Statement are negative. Past Medical History Additional Past Medical History / Comment(s): pt denies any medical issues- confirm with when she comes in - 07/28/2023 History of Any Multi-Drug Resistant Organisms: None Reported Past Surgical History: No Surgical Hx Reported Past Anesthesia/Blood Transfusion Reactions: No Reported Reaction Past Psychological History: No Psychological Hx Reported Smoking Status: Never smoker Past Alcohol Use History: None Reported Past Drug Use History: None Reported General Exam - General Exam Comments Initial Comments: GENERAL: Patient is well-developed and well-nourished. Patient is nontoxic and well- hydrated and is in no acute distress. ENT: Neck is soft and supple. No significant lymphadenopathy is noted. Oropharynx is clear. Moist mucous membranes. Neck has full range of motion without eliciting any pain. EYES: The sclera were anicteric and conjunctiva were pink and moist. Extraocular movements were intact and pupils were equal round and reactive to light. Eyelids were unremarkable. PULMONARY: Unlabored respirations. Good breath sounds bilaterally. No audible rales rhonchi or wheezing was noted. CARDIOVASCULAR: There is a regular rate and rhythm without any murmurs gallops or rubs. ABDOMEN: Soft and nontender with normal bowel sounds. SKIN: Skin is clear with no lesions or rashes and otherwise unremarkable. NEUROLOGIC: Patient is alert and oriented x3. Cranial nerves II through XII are grossly intact. Motor and sensory are also intact. Normal speech, volume and content. Symmetrical smile. MUSCULOSKELETAL: Normal extremities with adequate strength and full range of motion. LYMPHATICS: No significant lymphadenopathy is noted PSYCHIATRIC: Normal psychiatric evaluation. Limitations: no limitations Course Vital Signs 08/02/23 14:08 Temperature 97.6 F Pulse Rate 84 Respiratory 22 Rate Blood Pressure 117/73 O2 Sat by Pulse 92 L Oximetry Medical Decision Making - Medical Decision Making Was pt. sent in by a medical professional or institution (, PA, [employer], urgent care, hospital, or [facility]...) When possible be specific @ -No Did you speak to anyone other than the patient for history (EMS, parent, family, police, friend...)? What history was obtained from this source @ -EMS gave quite a bit of the history Did you review nursing and triage notes (agree or disagree)? Why? @ -I reviewed and agree with nursing and triage notes Were old charts reviewed (outside hosp., previous admission, EMS record, old EKG, old radiological studies, urgent care reports/EKG's, [facility] records)? Report findings @ -I reviewed the old chart and the old lab work on this patient Differential Diagnosis (chest pain, altered mental status, abdominal pain women, abdominal pain men, vaginal bleeding, weakness, fever, dyspnea, syncope, headache, dizziness, GI bleed, back pain, seizure, CVA, palpatations, mental health, musculoskeletal)? @ -Differential Weakness: Hypoglycemia, shock, sepsis, hyponatremia, anemia, infection, [place], ETOH, adverse medicine reaction, overdose, stroke, this is not meant to be an all-inclusive list. EKG interpreted by me (3pts min.). @ -As above X-rays interpreted by me (1pt min.). @ -None done CT interpreted by me (1pt min.). @ -None done U/S interpreted by me (1pt. min.). @ -None done What testing was considered but not performed or refused? (CT, X-rays, U/S, labs)? Why? @ -None What meds were considered but not given or refused? Why? @ -None Did you discuss the management of the patient with other professionals (professionals i.e. , PA, [employer], lab, RT, psych nurse, social psychologist, floorworker lasting, teacher, medical officer psychiatry, nurse case management)? Give summary @ -I spoke with [facility] they agreed admit the patient admitted the patient and wrote admitting orders Was smoking cessation discussed for >3mins.? @ -No Was critical care preformed (if so, how long)? @ -No Were there social determinants of health that impacted care today? How? (Homelessness, low income, unemployed, alcoholism, drug addiction, transportation, low edu. Level, literacy, decrease access to med. care, correction, rehab)? @ -No Was there de-escalation of care discussed even if they declined (Discuss DNR or withdrawal of care, Hospice)? DNR status @ -No What co-morbidities impacted this encounter? (DM, HTN, Smoking, COPD, CAD, Cancer, CVA, ARF, Chemo, Hep., AIDS, mental health diagnosis, sleep apnea, morbid obesity)? @ -None Was patient admitted / discharged? Hospital course, mention meds given and route, prescriptions, significant lab abnormalities, going to OR and other p ertinent info. @ -I spoke with [facility] hospitalist they agreed to admit the patient and then no lab work needed to be done since it was already done earlier today prior to the patient's discharge Undiagnosed new problem with uncertain prognosis? @ -No Drug Therapy requiring intensive monitoring for toxicity (Heparin, Nitro, Insulin, Cardizem)? @ -No Were any procedures done? @ -No Diagnosis/symptom? @ -Generalized weakness Acute, or Chronic, or Acute on Chronic? @ -Acute on chronic Uncomplicated (without systemic symptoms) or Complicated (systemic symptoms)? @ -Complicated Side effects of treatment? @ -No Exacerbation, Progression, or Severe Exacerbation? @ -No Poses a threat to life or bodily function? How? (Chest pain, [place], AZ, pneumonia, PE, COPD, DKA, ARF, appy, cholecystitis, CVA, Diverticulitis, Homicidal, Suicidal, threat to staff... and all critical care pts) @ -No Disposition Clinical Impression: Generalized weakness Disposition: ADMITTED IP TO THIS HOSP Referrals: Yahaira Foote MD [Primary Care Provider] - 1-2 days Time of Disposition: 14:42
[2023-08-02] MEDS ORDERED: CALCIPOTRIENE 0.005% TOPICAL PRN (17:29)
[2023-08-02] MEDS ORDERED: ONDANSETRON ODT 4 MG TAB PO PRN (17:29)
[2023-08-02] MEDS ORDERED: BETAMETHASONE DIPROPIONATE 0.05% CREAM 15 GM TUBE TOPICAL PRN (17:29)
[2023-08-02] MEDS ORDERED: DEXTROSE 50% SYRINGE 50 ML IVP PRN ×2 (17:31)
[2023-08-02] MEDS: LEVOTHYROXINE 50 MCG TAB PO SCH (18:24)
[2023-08-02] MEDS: carvediloL 12.5 MG TAB PO SCH (18:26)
[2023-08-02 19:57] LABS: Glucose,Whole Blood 172 mg/dL (70-110)
[2023-08-02] MEDS: INSULIN ASPART (NovoLOG) 100 UNIT/ML VIAL SQ SCH (22:01)
[2023-08-02] MEDS: CALCIUM CARBONATE 500 MG CHEWABLE PO SCH (22:01)
[2023-08-02] MEDS: ATORVASTATIN 10 MG TAB PO SCH (22:01)
[2023-08-02] MEDS: GABAPENTIN 300 MG CAP PO SCH (22:01)
[2023-08-02] MEDS: MULTIVITAMINS, THERA 1 EACH TAB PO SCH (22:01)
[2023-08-03 07:06] LABS: Glucose,Whole Blood 125 mg/dL (70-110)
[2023-08-03] MEDS: PANTOPRAZOLE 40 MG TABLET PO SCH (08:17)
[2023-08-03] MEDS: SPIRONOLACTONE 25 MG TAB PO SCH (08:17)
[2023-08-03] MEDS: metFORMIN 500 MG TAB PO SCH (08:17)
[2023-08-03] MEDS: ASPIRIN 81 MG PO SCH (08:17)
--- NOTE | 2023-08-03 11:54 | P.HPIM ---
History of Present Illness H&P Date: 08/03/23 History of present illness; patient is a 62-year-old gentleman with past medical significant for hypertension, hyperlipidemia, diabetes mellitus who was discharged this morning after being treated in the hospital for acute kidney injury and generalized weakness. During the stay patient was seen by nephrology and GI. Nephrology recommended that patient lisinopril should be discontinued and patient should be kept on Aldactone, patient renal function had improved. Patient was also seen by GI for nausea and vomiting that resolved with antiemetics. After discharge as soon as patient went back home he stated that he was not feeling strong enough and was unable to get out of the car. Patient is also currently admitted in the hospital. He denies any chest pain or shortness of breath. There was no complaint of nausea, vomiting or abdominal pain. Denies any fever or chills. Because of the symptoms, patient was brought back to the ER and was admitted to internal medicine service for placement REVIEW OF SYSTEMS: CONSTITUTIONAL: As mentioned above HEENT: No recent visual problems or hearing problems. Denied any sore throat. CARDIOVASCULAR: No chest pain, orthopnea, PND, no palpitations, no syncope. PULMONARY: No shortness of breath, no cough, no hemoptysis. GASTROINTESTINAL: No diarrhea, no nausea, no vomiting, no abdominal pain. NEUROLOGICAL: No headaches, no weakness, no numbness. HEMATOLOGICAL: Denies any bleeding or petechiae. GENITOURINARY: Denies any burning micturition, frequency, or urgency. MUSCULOSKELETAL/RHEUMATOLOGICAL: Denies any joint pain, swelling, or any muscle pain. ENDOCRINE: Denies any polyuria or polydipsia. The rest of the 14-point review of systems is negative. PHYSICAL EXAMINATION: GENERAL: The patient is alert and oriented x3, not in any acute distress. Well developed, well nourished. HEENT: Pupils are round and equally reacting to light. EOMI. No scleral icterus. No conjunctival pallor. Normocephalic, atraumatic. No pharyngeal erythema. No thyromegaly. CARDIOVASCULAR: S1 and S2 present. No murmurs, rubs, or gallops. PULMONARY: Chest is clear to auscultation, no wheezing or crackles. ABDOMEN: Soft, nontender, nondistended, normoactive bowel sounds. No palpable organomegaly. MUSCULOSKELETAL: No joint swelling or deformity. EXTREMITIES: No cyanosis, clubbing, or pedal edema. NEUROLOGICAL: Gross neurological examination did not reveal any focal deficits. Muscle strength is 3/ 5 lower extremities bilaterally, 5 x 5 in upper extremities SKIN: No rashes. Assessment and plan Generalized weakness Failure to thrive Hypothyroidism Hypertension hyperlipidemia Monitor vital signs Monitor CBC Monitor CMP Fall precautions Continue Coreg Continue aspirin, Lipitor Continue Synthroid Continue Aldactone Ordered x-ray spine Consult PT and OT Consult case management Labs and medication were reviewed.. Continue same treatment. Continue with symptomatic treatment. Resume home medication. Monitor labs and vitals. DVT and GI prophylaxis. Further recommendations as per clinical course of the patient Dictation was produced using [employer] dictation software. please excuse any grammatical, word or spelling errors. Past Medical History Past Medical History: Coronary Artery Disease (CAD), Diabetes Mellitus, Hyperlipidemia, Hypertension, Osteoarthritis (OA), Skin Disorder Additional Past Medical History / Comment(s): poor appetite lately, psoriasis, falls, DDD, left renal cyst/lesion, nonischemic cardiomyopathy, rectal polyp History of Any Multi-Drug Resistant Organisms: None Reported Past Surgical History: AICD, Heart Catheterization Additional Past Surgical History / Comment(s): colonoscopy with rectal polyp biopsy Past Anesthesia/Blood Transfusion Reactions: No Reported Reaction Additional Past Anesthesia/Blood Transfusion Reaction / Comment(s): na Type of Cardiac Device: AICD Device Placement Date:: 01/05/16 Past Psychological History: No Psychological Hx Reported Smoking Status: Never smoker Past Alcohol Use History: None Reported Past Drug Use History: None Reported - Past Family History Father History Unknown: Yes Additional Family Medical History / Comment(s): , pt doesnt know cause Mother History Unknown: Yes Additional Family Medical History / Comment(s): , pt doesnt know cause Medications and Allergies Home Medications Medication Instructions Recorded Confirmed Type Multivitamins, Thera [Multivitamin 1 tab PO BID 07/22/15 08/02/23 History (formulary)] Aspirin 81 mg PO DAILY 07/25/15 08/02/23 History Atorvastatin [Lipitor] 10 mg PO HS 12/30/15 08/02/23 History Carvedilol [Coreg] 25 mg PO BID 12/30/15 08/02/23 History Spironolactone [Aldactone] 25 mg PO DAILY 12/30/15 08/02/23 History metFORMIN HCL [Glucophage] 500 mg PO DAILY 05/11/23 08/02/23 History Betamethasone Dipropionate 1 applic TOPICAL BID PRN 07/28/23 08/02/23 History [Diprolene 0.05% Cream (GEQ)] Calcipotriene 0.005% Cream 1 applic TOPICAL BID PRN 07/28/23 08/02/23 History Calcium Carbonate [Calcium] 600 mg PO BID 07/28/23 08/02/23 History Gabapentin [Neurontin] 300 mg PO BID 07/28/23 08/02/23 History Levothyroxine Sodium [Synthroid] 50 mcg PO DIRECTED 07/28/23 08/02/23 History Ondansetron Odt [Zofran Odt] 4 mg PO Q8HR PRN 7 Days #21 tab 08/02/23 08/02/23 Rx Pantoprazole Sodium [Protonix] 40 mg PO DAILY 30 Days #30 tab 08/02/23 08/02/23 Rx Allergies Allergy/AdvReac Type Severity Reaction Status Date / Time No Known Allergies Allergy Verified 08/02/23 15:11 Physical Exam Vitals: Vital Signs Temp Pulse Pulse Resp BP BP Pulse Ox 08/03/23 07:15 98.2 F 78 16 109/63 97 08/03/23 02:00 98.6 F 97 16 119/61 97 08/02/23 20:00 98.6 F 119 H 16 103/54 91 L 08/02/23 17:10 97.4 F L 125 H 24 120/57 97 08/02/23 16:10 97.3 F L 123 H 30 H 92/50 95 08/02/23 14:08 97.6 F 84 22 117/73 92 L Intake and Output 08/02/23 08/03/23 08/03/23 22:59 06:59 14:59 Intake Total 590 Output Total 200 300 Balance -200 590 -300 Intake: Oral 590 Output: Urine 200 300 Other: Voiding Method External Catheter # Bowel Movements 0 Weight 90.718 kg Results Labs: Abnormal Lab Results - Last 24 Hours (Table) 08/02/23 08/03/23 08/03/23 Range/Units 19:56 04:47 07:05 POC Glucose (mg/dL) 172 H 125 H (70-110) mg/dL Hemoglobin A1c 6.3 H (<=6.0) % Thrombosis Risk Factor Assmnt - Choose All That Apply Each Factor Represents 1 point: Obesity (BMI >25) Each Risk Factor Represents 2 Points: Age 61-74 years Thrombosis Risk Factor Assessment Total Risk Factor Score: 3 Thrombosis Risk Factor Assessment Level: Moderate Risk
[2023-08-03 12:11] LABS: Glucose,Whole Blood 146 mg/dL (70-110)
--- NOTE | 2023-08-03 12:50 | XR ---
EXAMINATION TYPE: XR spine complete AP and Lat DATE OF EXAM: 08/03/2023 12:42 PM CLINICAL INDICATION:Male, 62 years old with history of fall; COMPARISON: 07/21/2023. TECHNIQUE: XR spine complete AP and Lat views of the spine in Frontal and lateral projections. FINDINGS: No evidence of acute fracture. There is no evidence of disk space narrowing or loss of vertebral bod y height. There is grade 1 anterolisthesis of C4 on C5 alignment of the thoracic vertebral bodies. Mu ltilevel osteophyte formation throughout the spine. Left AICD lead partially visualized. IMPRESSION: 1. No acute osseous pathology. 2. Multilevel degeneration changes of the spine.
[2023-08-03 17:25] LABS: Glucose,Whole Blood 176 mg/dL (70-110)
[2023-08-03 20:13] LABS: Glucose,Whole Blood 171 mg/dL (70-110)
[2023-08-04 07:32] LABS: Glucose,Whole Blood 122 mg/dL (70-110)
[2023-08-04 10:16] LABS: Basophils # (A) 0.06 X 10*3/uL (0.00-0.10); Basophils % (A) 0.5 %; Eosinophils # (A) 0.07 X 10*3/uL (0.04-0.35); Eosinophils % (A) 0.6 %; HCT 30.3 % (39.6-50.0); HGB 9.8 g/dL (13.0-17.0); Lymphocytes # (A) 1.02 X 10*3/uL (0.90-5.00); Lymphocytes % (A) 8.3 %; MCH 28.3 pg (27.0-32.0); MCHC 32.3 g/dL (32.0-37.0); MCV 87.6 FL (80.0-97.0); Mean Platelet Volume 11.2 FL (9.5-12.2); Monocytes # (A) 0.91 X 10*3/uL (0.20-1.00); Monocytes % (A) 7.4 %; NRBC Per 100 WBC 0 X 10*3/uL (0.00-0.01); Neutrophils # (A) 10.12 X 10*3/uL (1.80-7.70); Neutrophils % (A) 81.8 %; Platelet Count 196 X 10*3/uL (140-440); RBC 3.46 X 10*6/uL (4.40-5.60); RDW 13.5 % (11.5-14.5); WBC 12.35 X 10*3/uL (4.50-10.00)
[2023-08-04 10:58] LABS: ALT 157 U/L (10-49); AST 137 U/L (14-35); Albumin 2.6 g/dL (3.8-4.9); Alkaline Phosphatase 184 U/L (41-126); Calcium 8.7 mg/dL (8.7-10.3); Chloride 97 mmol/L (96-109); Globulin 2.9 g/dL (1.6-3.3); Glucose 132 mg/dL (70-110); Potassium 3.9 mmol/L (3.5-5.5); Sodium 133 mmol/L (135-145); Total Bilirubin 0.8 mg/dL (0.3-1.2); Total Protein 5.5 g/dL (6.2-8.2)
[2023-08-04 11:58] LABS: Glucose,Whole Blood 137 mg/dL (70-110)
--- NOTE | 2023-08-04 12:38 | P.PN ---
Subjective Progress Note Date: 08/04/23 patient is a 62-year-old gentleman with past medical significant for hypertension, hyperlipidemia, diabetes mellitus who was discharged this morning after being treated in the hospital for acute kidney injury and generalized weakness. During the stay patient was seen by nephrology and GI. Nephrology recommended that patient lisinopril should be discontinued and patient should be kept on Aldactone, patient renal function had improved. Patient was also seen by GI for nausea and vomiting that resolved with antiemetics. After discharge as soon as patient went back home he stated that he was not feeling strong enough and was unable to get out of the car. Patient is also currently admitted in the hospital. He denies any chest pain or shortness of breath. There was no complaint of nausea, vomiting or abdominal pain. Denies any fever or chills. Because of the symptoms, patient was brought back to the ER and was admitted to internal medicine service for placement 08/04. Patient seen and examined. States weakness of lower legs has slightly improved. Working with PT and OT REVIEW OF SYSTEMS: CONSTITUTIONAL: No fever, no malaise,. CARDIOVASCULAR: No chest pain, no palpitations, no syncope. PULMONARY: No shortness of breath, no cough, GASTROINTESTINAL: No diarrhea, no nausea, no vomiting, no abdominal pain. NEUROLOGICAL: No headaches, no weakness, PHYSICAL EXAMINATION: GENERAL: The patient is alert and oriented x3, not in any acute distress. Well developed, well nourished. HEENT: Pupils are round and equally reacting to light. EOMI. No scleral icterus. No conjunctival pallor. Normocephalic, atraumatic. No pharyngeal erythema. No thyromegaly. CARDIOVASCULAR: S1 and S2 present. No murmurs, rubs, or gallops. PULMONARY: Chest is clear to auscultation, no wheezing or crackles. ABDOMEN: Soft, nontender, nondistended, normoactive bowel sounds. No palpable organomegaly. MUSCULOSKELETAL: No joint swelling or deformity. EXTREMITIES: No cyanosis, clubbing, or pedal edema. NEUROLOGICAL: Gross neurological examination did not reveal any focal deficits. SKIN: No rashes. Assessment and plan Generalized weakness Failure to thrive Hypothyroidism Hypertension hyperlipidemia Monitor vital signs Monitor CBC Monitor CMP Fall precautions Continue Coreg Continue aspirin DC Lipitor secondary elevated LFTs Continue Synthroid Continue Aldactone X-ray spine done showed no acute osseous pathology, multilevel degenerative changes seen PT and OT following Consult case management Labs and medication were reviewed.. Continue same treatment. Continue with symptomatic treatment. Resume home medication. Monitor labs and vitals. DVT and GI prophylaxis. Further recommendations as per clinical course of the patient Dictation was produced using [employer] dictation software. please excuse any grammatical, word or spelling errors. Objective - Vital Signs Vital signs: Vital Signs Temp 97.4 F L 08/04/23 11:35 Pulse 86 08/04/23 11:35 Resp 16 08/04/23 11:35 BP 108/58 08/04/23 11:35 Pulse Ox 96 08/04/23 11:35 FiO2 Intake & Output 08/03/23 08/04/23 08/04/23 18:59 06:59 18:59 Intake Total 590 Output Total 700 600 Balance -700 -10 Intake: Oral 590 Output: Urine 700 600 Other: Voiding Method External Catheter External Catheter External Catheter - Labs CBC & Chem 7: 08/04/23 06:28 08/04/23 06:28 Labs: Abnormal Lab Results - Last 24 Hours (Table) 08/03/23 08/03/23 08/04/23 Range/Units 17:23 20:12 06:28 WBC 12.35 H (4.50-10.00) X 10*3/uL RBC 3.46 L (4.40-5.60) X 10*6/uL Hgb 9.8 L (13.0-17.0) g/dL Hct 30.3 L (39.6-50.0) % Immature Gran # 0.17 H (0.00-0.04) X 10*3/uL Neutrophils # 10.12 H (1.80-7.70) X 10*3/uL Sodium (135-145) mmol/L Anion Gap (4.00-12.00) mmol/L BUN (9.0-27.0) mg/dL BUN/Creatinine Ratio (12.00-20.00) Ratio Glucose (70-110) mg/dL POC Glucose (mg/dL) 176 H 171 H (70-110) mg/dL AST (14-35) U/L ALT (10-49) U/L Alkaline Phosphatase (41-126) U/L Total Protein (6.2-8.2) g/dL Albumin (3.8-4.9) g/dL Albumin/Globulin Ratio (1.60-3.17) Ratio 08/04/23 08/04/23 08/04/23 Range/Units 06:28 07:30 11:37 WBC (4.50-10.00) X 10*3/uL RBC (4.40-5.60) X 10*6/uL Hgb (13.0-17.0) g/dL Hct (39.6-50.0) % Immature Gran # (0.00-0.04) X 10*3/uL Neutrophils # (1.80-7.70) X 10*3/uL Sodium 133 L (135-145) mmol/L Anion Gap 13.00 H (4.00-12.00) mmol/L BUN 31.0 H (9.0-27.0) mg/dL BUN/Creatinine Ratio 31.00 H (12.00-20.00) Ratio Glucose 132 H (70-110) mg/dL POC Glucose (mg/dL) 122 H 137 H (70-110) mg/dL AST 137 H (14-35) U/L ALT 157 H (10-49) U/L Alkaline Phosphatase 184 H (41-126) U/L Total Protein 5.5 L (6.2-8.2) g/dL Albumin 2.6 L (3.8-4.9) g/dL Albumin/Globulin Ratio 0.90 L (1.60-3.17) Ratio
[2023-08-04 17:00] LABS: Glucose,Whole Blood 177 mg/dL (70-110)
[2023-08-04 20:27] LABS: Glucose,Whole Blood 159 mg/dL (70-110)
[2023-08-05 07:18] LABS: Glucose,Whole Blood 132 mg/dL (70-110)
[2023-08-05 08:11] VITALS: PULSE 86
[2023-08-05 12:25] LABS: Glucose,Whole Blood 122 mg/dL (70-110)
[2023-08-05 13:02] VITALS: BP 120/63; RESP 16; TEMP 98.2
--- NOTE | 2023-08-05 13:03 | P.DS ---
Providers Date of admission: 08/02/23 14:43 Expected date of discharge: 08/05/23 Attending physician: Jeremi Joshua MD Primary care physician: Yahaira Foote [facility] Course: Discharge diagnoses; Generalized weakness Failure to thrive Hypothyroidism Hypertension hyperlipidemia Transaminitis Hospital course; patient is a 62-year-old gentleman with past medical significant for hypertension, hyperlipidemia, diabetes mellitus who was discharged this morning after being treated in the hospital for acute kidney injury and generalized weakness. During the stay patient was seen by nephrology and GI. Nephrology recommended that patient lisinopril should be discontinued and patient should be kept on Aldactone, patient renal function had improved. Patient was also seen by GI for nausea and vomiting that resolved with antiemetics. After discharge as soon as patient went back home he stated that he was not feeling strong enough and was unable to get out of the car. Patient is also currently admitted in the hospital. He denies any chest pain or shortness of breath. There was no complaint of nausea, vomiting or abdominal pain. Denies any fever or chills. Because of the symptoms, patient was brought back to the ER and was admitted to internal medicine service for placement 08/04. Patient seen and examined. States weakness of lower legs has slightly improved. Working with PT and OT. LFTs were elevated, DC Lipitor 08/05. Patient seen and examined. Being discharged to rehab in stable condition PHYSICAL EXAMINATION: GENERAL: The patient is alert and oriented x3, not in any acute distress. Well developed, well nourished. HEENT: Pupils are round and equally reacting to light. EOMI. No scleral icterus. No conjunctival pallor. Normocephalic, atraumatic. No pharyngeal erythema. No thyromegaly. CARDIOVASCULAR: S1 and S2 present. No murmurs, rubs, or gallops. PULMONARY: Chest is clear to auscultation, no wheezing or crackles. ABDOMEN: Soft, nontender, nondistended, normoactive bowel sounds. No palpable organomegaly. MUSCULOSKELETAL: No joint swelling or deformity. EXTREMITIES: No cyanosis, clubbing, or pedal edema. NEUROLOGICAL: Gross neurological examination did not reveal any focal deficits. SKIN: No rashes. Dictation was produced using [employer] dictation software. please excuse any grammatical, word or spelling errors. Plan - Discharge Summary Discharge Rx Participant: No New Discharge Prescriptions: Continue Multivitamins, Thera [Multivitamin (formulary)] 1 tab PO BID Aspirin 81 mg PO DAILY Carvedilol [Coreg] 25 mg PO BID Spironolactone [Aldactone] 25 mg PO DAILY Pantoprazole Sodium [Protonix] 40 mg PO DAILY 30 Days #30 tab Gabapentin [Neurontin] 300 mg PO BID 3 Days #6 cap metFORMIN HCL [Glucophage] 500 mg PO DAILY Levothyroxine Sodium [Synthroid] 50 mcg PO DIRECTED Calcium Carbonate [Calcium] 600 mg PO BID Betamethasone Dipropionate [Diprolene 0.05% Cream (GEQ)] 1 applic TOPICAL BID PRN PRN Reason: Rash Calcipotriene 0.005% Cream 1 applic TOPICAL BID PRN PRN Reason: Rash Ondansetron Odt [Zofran ODT] 4 mg PO Q8HR PRN 7 Days #21 tab PRN Reason: Nausea Discontinued Atorvastatin [Lipitor] 10 mg PO HS Discharge Medication List Multivitamins, Thera [Multivitamin (formulary)] 1 tab PO BID 07/22/15 [History] Aspirin 81 mg PO DAILY 07/25/15 [History] Carvedilol [Coreg] 25 mg PO BID 12/30/15 [History] Spironolactone [Aldactone] 25 mg PO DAILY 12/30/15 [History] metFORMIN HCL [Glucophage] 500 mg PO DAILY 05/11/23 [History] Betamethasone Dipropionate [Diprolene 0.05% Cream (GEQ)] 1 applic TOPICAL BID PRN 07/28/23 [History] Calcipotriene 0.005% Cream 1 applic TOPICAL BID PRN 07/28/23 [History] Calcium Carbonate [Calcium] 600 mg PO BID 07/28/23 [History] Levothyroxine Sodium [Synthroid] 50 mcg PO DIRECTED 07/28/23 [History] Ondansetron Odt [Zofran ODT] 4 mg PO Q8HR PRN 7 Days #21 tab 08/02/23 [Rx] Pantoprazole Sodium [Protonix] 40 mg PO DAILY 30 Days #30 tab 08/02/23 [Rx] Gabapentin [Neurontin] 300 mg PO BID 3 Days #6 cap 08/05/23 [Rx] Follow up Appointment(s)/Referral(s): Yahaira Foote MD [Primary Care Provider] - 1-2 days Discharge Disposition: TRANSFER TO SNF/ECF
[2023-08-05 17:38] LABS: Glucose,Whole Blood 117 mg/dL (70-110)
== END 2023-08-05 20:10 ==
LOC: EC 14:00 → 4SSUR 14:43 → 5NMEDONC 15:10
PROVIDERS: ADMIT Internal Medicine; ATTEND Internal Medicine
DX: R53.1 Weakness (principal); R62.7 Adult failure to thrive; E03.9 Hypothyroidism, unspecified; I10 Essential (primary) hypertension; E78.5 Hyperlipidemia, unspecified; E11.9 Type 2 diabetes mellitus without complications; I25.10 Atherosclerotic heart disease of native coronary artery without angina pectoris; I42.8 Other cardiomyopathies; R74.01 Elevation of levels of liver transaminase levels; Z95.810 Presence of automatic (implantable) cardiac defibrillator; Z79.82 Long term (current) use of aspirin; Z79.84 Long term (current) use of oral hypoglycemic drugs; Z79.890 Hormone replacement therapy; Z79.899 Other long term (current) drug therapy
CPT/HCPCS: 99285; 97530; 97162; 97166; 80053; 85025; 83036; 72082; G0378 ×4

== ENCOUNTER → 2023-08-18 | Outpatient (CLI) | payer BC ==
--- NOTE | 2023-08-18 14:44 | CT ---
EXAMINATION TYPE: CT lumbar spine wo con DATE OF EXAM: 08/18/2023 2:23 PM COMPARISON: None HISTORY: PAIN CT DLP: 1440.4 mGycm Automated exposure control for dose reduction was used. Unenhanced CT of the lumbar spine was performed. Bone and soft tissue window settings are submitted as well as coronal and sagittal reconstructions. Findings: The lumbar vertebral segments are normal in height. There is a slight grade 1 anterolisthesis of L4 o n L5. Disc spaces are well-maintained in height. There is moderate anterior spondylosis indicating mild deg enerative disc disease from T12 through L4. There is minimal vacuum phenomena at T12/L1 level and L1/ L2 level. There there is probable are no large disc herniations. There is marked osteoarthritis of the facets at the L4-5 level where there is marked hypertrophic spu rring of the facets, cystic changes and irregularity of the articular margins. In combination with sl ight anterolisthesis, there is a probable severe spinal stenosis. There is moderate osteoarthritic c hange of the L5-S1 facets and of the SI joints. Secondary to mild thickening of ligamentum flavum, there is a probable mild spinal stenosis at the L3 -4 level. There is moderate to severe bony neural foraminal encroachment at the L1-2 level bilaterally and mild bony neural foraminal encroachment at the L2-3 and L3-4 levels bilaterally.. IMPRESSION: 1. Advanced osteoarthritis of the facet joints at the L4-5 level in grade 1 anterolisthesis of L4 and L5 resulting in probable severe spinal stenosis. 2. No large disc herniations. 3. Multilevel bony neural foraminal encroachment as described above. 4. No spondylolysis or lumbar spine fracture. 5. Mild spinal stenosis suspected at the L3-4 level. 6. Regarding discs herniations and spinal stenosis, MRI lumbar spine would be useful for further eval uation.
--- NOTE | 2023-08-18 16:05 | CT ---
EXAMINATION TYPE: CT femur LT wo con DATE OF EXAM: 08/18/2023 COMPARISON: None HISTORY: PAIN CT DLP: 856.7 mGycm Automated exposure control for dose reduction was used. Contrast: None Technique: Axial images 3 mm thick sections. Reconstructed images in the coronal and sagittal planes. FINDINGS: Femoral head articulates with the acetabulum. Mild narrowing of the joint space is present compatible with mild osteoarthritic degenerative change. No acute hip fracture is evident. Femoral diaphysis appears normal. Surrounding soft tissues are unremarkable. Degenerative joint changes are present within the medial compartment and patellofemoral compartment o f the left knee. Three-D reconstructed images perform a separate computer by the technologist are reviewed. IMPRESSION: 1. NO ACUTE OSSEOUS ABNORMALITY LEFT FEMUR. DEGENERATIVE CHANGES ARE AT THE HIP AND KNEE JOINT SPACES ..
== END | disposition home or self-care (01) ==
LOC: RADCTMAIN 13:20
PROVIDERS: ATTEND Orthopaedic Surgery Orthopaedic Surgery of the Spine
DX: M47.896 Other spondylosis, lumbar region (principal); M48.061 Spinal stenosis, lumbar region without neurogenic claudication; M79.652 Pain in left thigh
CPT/HCPCS: 72131

== ENCOUNTER 2023-08-19 15:51 | Emergency (ER) | payer BC ==
[2023-08-19 15:59] VITALS: RESP 18
--- NOTE | 2023-08-19 16:25 | ED ---
General Adult HPI - General Chief complaint: GI Bleed Stated complaint: GI Bleed Time Seen by Provider: 08/19/23 16:05 Source: patient, RN notes reviewed, old records reviewed Mode of arrival: ambulatory Limitations: no limitations - History of Present Illness Initial comments: 62-year-old male presenting from senior living with vomiting bright red blood. Patient states he woke and vomited large quantity of bright red blood. He denied any preceding symptoms. No chest pain or abdominal pain. No melanotic stool. No anticoagulants. He takes 81 mg of aspirin a day no other antiplatelets. He denies alcohol use, denies previous gastrointestinal he morrhage. - Related Data Home Medications Medication Instructions Recorded Confirmed Multivitamins, Thera [Multivitamin 1 tab PO BID@0800,1600 07/22/15 08/19/23 (formulary)] Aspirin 81 mg PO DAILY 07/25/15 08/19/23 Carvedilol [Coreg] 25 mg PO BID@0800,1600 12/30/15 08/19/23 Spironolactone [Aldactone] 25 mg PO DAILY 12/30/15 08/19/23 metFORMIN HCL [Glucophage] 500 mg PO DAILY 05/11/23 08/19/23 Betamethasone Dipropionate 1 applic TOPICAL Q12H PRN 07/28/23 08/19/23 [Diprolene 0.05% Cream (GEQ)] Calcipotriene 0.005% Cream 1 applic TOPICAL BID PRN 07/28/23 08/19/23 Calcium Carbonate [Calcium] 600 mg PO BID@0800,1600 07/28/23 08/19/23 Levothyroxine Sodium [Synthroid] 50 mcg PO DAILY 07/28/23 08/19/23 Omeprazole [PriLOSEC] 20 mg PO DAILY 08/19/23 08/19/23 Ondansetron Odt [Zofran ODT] 4 mg PO Q8HR PRN 08/19/23 08/19/23 predniSONE See Taper PO DIRECTED 08/19/23 08/19/23 Previous Rx's Medication Instructions Recorded Gabapentin [Neurontin] 300 mg PO BID 3 Days #6 cap 08/05/23 Allergies Allergy/AdvReac Type Severity Reaction Status Date / Time No Known Allergies Allergy Verified 08/19/23 16:28 Review of Systems ROS Statement: Those systems with pertinent positive or pertinent negative responses have been documented in the HPI. ROS Other: All systems not noted in ROS Statement are negative. Past Medical History Past Medical History: Coronary Artery Disease (CAD), Diabetes Mellitus, Hyperlipidemia, Hypertension, Osteoarthritis (OA), Skin Disorder Additional Past Medical History / Comment(s): poor appetite lately, psoriasis, falls, DDD, left renal cyst/lesion, nonischemic cardiomyopathy, rectal polyp History of Any Multi-Drug Resistant Organisms: None Reported Past Surgical History: AICD, Heart Catheterization Additional Past Surgical History / Comment(s): colonoscopy with rectal polyp biopsy Past Anesthesia/Blood Transfusion Reactions: No Reported Reaction Additional Past Anesthesia/Blood Transfusion Reaction / Comment(s): na Type of Cardiac Device: AICD Device Placement Date:: 01/05/16 Past Psychological History: No Psychological Hx Reported Smoking Status: Never smoker Past Alcohol Use History: None Reported Past Drug Use History: None Reported - Past Family History Father History Unknown: Yes Additional Family Medical History / Comment(s): , pt doesnt know cause Mother History Unknown: Yes Additional Family Medical History / Comment(s): , pt doesnt know cause General Exam Limitations: no limitations General appearance: alert, in distress Head exam: Present: atraumatic, normocephalic Eye exam: Present: normal appearance, PERRL ENT exam: Present: normal exam Neck exam: Present: normal inspection Respiratory exam: Present: normal lung sounds bilaterally. Absent: respiratory distress, wheezes Cardiovascular Exam: Present: normal rhythm, tachycardia GI/Abdominal exam: Present: soft, distended. Absent: tenderness, guarding, gurinder ound Extremities exam: Present: normal inspection, normal capillary refill Neurological exam: Present: alert Skin exam: Present: warm, dry, intact. Absent: cyanosis, diaphoretic Course Vital Signs 08/19/23 08/19/23 15:52 17:56 Temperature 98 F 98 F Pulse Rate 113 H 99 Respiratory 18 18 Rate Blood Pressure 104/60 109/72 O2 Sat by Pulse 98 Oximetry - Reevaluation(s) Reevaluation #1: 08/19/23 18:11 Case discussed with the ER physician Dr. Chavez Medical Decision Making - Medical Decision Making Was pt. sent in by a medical professional or institution (, PA, MRI TECHNICIAN, urgent care, hospital, or senior living...) When possible be specific @ -No Did you speak to anyone other than the patient for history (EMS, parent, family, police, friend...)? What history was obtained from this source @ -No Did you review nursing and triage notes (agree or disagree)? Why? @ -I reviewed and agree with nursing and triage notes Were old charts reviewed (outside hosp., previous admission, EMS record, old EKG, old radiological studies, urgent care reports/EKG's, senior living records)? Report findings @ -No old charts were reviewed Differential Diagnosis (chest pain, altered mental status, abdominal pain women, abdominal pain men, vaginal bleeding, weakness, fever, dyspnea, syncope, headache, dizziness, GI bleed, back pain, seizure, CVA, palpatations, mental h ealth, musculoskeletal)? @Differential GI Bleed: Esophageal varices, aortoenteric fistula, Edda-Watts, gastritis, peptic ulcer disease, diverticulosis, inflammatory bowel disease, hemorrhoids, fissure, colitis, malignancy, Meckels diverticulum, this is not meant to be an all- inclusive list. EKG interpreted by me (3pts min.). @ -Tachycardia, rate of 114, left bundle branch block, DE interval 172, QRS duration 156, QTc 426 X-rays interpreted by me (1pt min.). @ -None done CT interpreted by me (1pt min.). @ -None done U/S interpreted by me (1pt. min.). @ -None done What testing was considered but not performed or refused? (CT, X-rays, U/S, labs)? Why? @ -None What meds were considered but not given or refused? Why? @ -None Did you discuss the management of the patient with other professionals (professionals i.e. , PA, MRI TECHNICIAN, lab, RT, psych nurse, social work specialist, cradle placer, teacher, employee service officer, case picker)? Give summary @ -Gabriella Mulligan Was smoking cessation discussed for >3mins.? @ -No Was critical care preformed (if so, how long)? @ -[Yes, 35 minutes. Were there social determinants of health that impacted care today? How? (Homelessness, low income, unemployed, alcoholism, drug addiction, transportation, low edu. Level, literacy, decrease access to med. care, prison, rehab)? @ -No Was there de-escalation of care discussed even if they declined (Discuss DNR or withdrawal of care, Hospice)? DNR status @ -No What co-morbidities impacted this encounter? (DM, HTN, Smoking, COPD, CAD, Cancer, CVA, ARF, Chemo, Hep., AIDS, mental health diagnosis, sleep apnea, morbid obesity)? @CHF Was patient admitted / discharged? Hospital course, mention meds given and route, prescriptions, significant lab abnormalities, going to OR and other pertinent info. @ -[62-year-old male presenting from senior living with hematemesis. Large- volume. Patient is tachycardic on presentation, blood pressure is marginal. He appears pale. Patient is on 81 mg aspirin. Initial hemoglobin is 10.5, he has an elevated white blood cell count at 21. He is given 80 mg Protonix, he is given a gram of Rocephin. He is transfused 1 unit of packed RBCs for tachycardia and hypotension. I discussed the case with gastroenterology at [facility] Dr. Mora, who will accept transfer as there is no GI coverage at this institution currently. Undiagnosed new problem with uncertain prognosis? @ -No Drug Therapy requiring intensive monitoring for toxicity (Heparin, Nitro, Insulin, Cardizem)? @ -No Were any procedures done? @ -No Diagnosis/symptom? @ -Upper GI bleed Acute, or Chronic, or Acute on Chronic? @Acute Uncomplicated (without systemic symptoms) or Complicated (systemic symptoms)? @ -Default Side effects of treatment? @ -No Exacerbation, Progression, or Severe Exacerbation? @ -No Poses a threat to life or bodily function? How? (Chest pain, [place], NE, pneumonia, PE, COPD, DKA, ARF, appy, cholecystitis, CVA, Diverticulitis, Homicidal, Suicidal, threat to staff... and all critical care pts) @Yes, upper GI bleed, hemorrhagic shock - Lab Data Result diagrams: 08/19/23 16:29 08/19/23 16:29 Lab Results 08/19/23 08/19/23 08/19/23 Range/Units 16:20 16:29 16:29 WBC 21.1 H (3.8-10.6) k/uL RBC 3.73 L (4.30-5.90) m/uL Hgb 10.5 L (13.0-17.5) gm/dL Hct 32.7 L (39.0-53.0) % MCV 87.7 (80.0-100.0) fL MCH 28.1 (25.0-35.0) pg MCHC 32.1 (31.0-37.0) g/dL RDW 14.3 (11.5-15.5) % Plt Count 551 H (150-450) k/uL MPV 8.0 Neutrophils % 86 % Lymphocytes % 8 % Monocytes % 5 % Eosinophils % 0 % Basophils % 0 % Neutrophils # 18.1 H (1.3-7.7) k/uL Lymphocytes # 1.7 (1.0-4.8) k/uL Monocytes # 0.9 (0-1.0) k/uL Eosinophils # 0.0 (0-0.7) k/uL Basophils # 0.1 (0-0.2) k/uL PT 12.9 H (10.0-12.5) sec INR 1.2 H (<1.2) APTT 23.1 (22.0-30.0) sec Sodium (137-145) mmol/L Potassium (3.5-5.1) mmol/L Chloride (98-107) mmol/L Carbon Dioxide (22-30) mmol/L Anion Gap mmol/L BUN (9-20) mg/dL Creatinine (0.66-1.25) mg/dL Est GFR (CKD-EPI)AfAm (>60 ml/min/1.73 sqM) Est GFR (CKD-EPI)NonAf (>60 ml/min/1.73 sqM) Glucose (74-99) mg/dL POC Glucose (mg/dL) (70-110) mg/dL POC Glu Slubber Tender ID Plasma Lactic Acid Roddy (0.7-2.0) mmol/L Calcium (8.4-10.2) mg/dL Total Bilirubin (0.2-1.3) mg/dL AST (17-59) U/L ALT (4-49) U/L Alkaline Phosphatase (38-126) U/L Total Protein (6.3-8.2) g/dL Albumin (3.5-5.0) g/dL Blood Type Blood Type Confirm B Positive Blood Type Recheck Bld Type Recheck Status Antibody Screen Crossmatch Spec Expiration Date 08/19/23 08/19/23 08/19/23 Range/Units 16:29 16:29 16:30 WBC (3.8-10.6) k/uL RBC (4.30-5.90) m/uL Hgb (13.0-17.5) gm/dL Hct (39.0-53.0) % MCV (80.0-100.0) fL MCH (25.0-35.0) pg MCHC (31.0-37.0) g/dL RDW (11.5-15.5) % Plt Count (150-450) k/uL MPV Neutrophils % % Lymphocytes % % Monocytes % % Eosinophils % % Basophils % % Neutrophils # (1.3-7.7) k/uL Lymphocytes # (1.0-4.8) k/uL Monocytes # (0-1.0) k/uL Eosinophils # (0-0.7) k/uL Basophils # (0-0.2) k/uL PT (10.0-12.5) sec INR (<1.2) APTT (22.0-30.0) sec Sodium 131 L (137-145) mmol/L Potassium 5.7 H (3.5-5.1) mmol/L Chloride 102 (98-107) mmol/L Carbon Dioxide 16 L (22-30) mmol/L Anion Gap 13 mmol/L BUN 47 H (9-20) mg/dL Creatinine 0.88 (0.66-1.25) mg/dL Est GFR (CKD-EPI)AfAm >90 (>60 ml/min/1.73 sqM) Est GFR (CKD-EPI)NonAf >90 (>60 ml/min/1.73 sqM) Glucose 221 H (74-99) mg/dL POC Glucose (mg/dL) (70-110) mg/dL POC Glu Slubber Tender ID Plasma Lactic Acid Roddy 3.4 H* (0.7-2.0) mmol/L Calcium 9.2 (8.4-10.2) mg/dL Total Bilirubin 0.8 (0.2-1.3) mg/dL AST 30 (17-59) U/L ALT 53 H (4-49) U/L Alkaline Phosphatase 96 (38-126) U/L Total Protein 6.1 L (6.3-8.2) g/dL Albumin 3.2 L (3.5-5.0) g/dL Blood Type B Positive Blood Type Confirm Blood Type Recheck No Previous Record Bld Type Recheck Status CABO Indicated Antibody Screen NEGATIVE Crossmatch See Detail Spec Expiration Date 08/22/2023 - 232908/19/23 Range/Units 17:54 WBC (3.8-10.6) k/uL RBC (4.30-5.90) m/uL Hgb (13.0-17.5) gm/dL Hct (39.0-53.0) % MCV (80.0-100.0) fL MCH (25.0-35.0) pg MCHC (31.0-37.0) g/dL RDW (11.5-15.5) % Plt Count (150-450) k/uL MPV Neutrophils % % Lymphocytes % % Monocytes % % Eosinophils % % Basophils % % Neutrophils # (1.3-7.7) k/uL Lymphocytes # (1.0-4.8) k/uL Monocytes # (0-1.0) k/uL Eosinophils # (0-0.7) k/uL Basophils # (0-0.2) k/uL PT (10.0-12.5) sec INR (<1.2) APTT (22.0-30.0) sec Sodium (137-145) mmol/L Potassium (3.5-5.1) mmol/L Chloride (98-107) mmol/L Carbon Dioxide (22-30) mmol/L Anion Gap mmol/L BUN (9-20) mg/dL Creatinine (0.66-1.25) mg/dL Est GFR (CKD-EPI)AfAm (>60 ml/min/1.73 sqM) Est GFR (CKD-EPI)NonAf (>60 ml/min/1.73 sqM) Glucose (74-99) mg/dL POC Glucose (mg/dL) 265 H (70-110) mg/dL POC Glu Slubber Tender ID Lenin Short Plasma Lactic Acid Roddy (0.7-2.0) mmol/L Calcium (8.4-10.2) mg/dL Total Bilirubin (0.2-1.3) mg/dL AST (17-59) U/L ALT (4-49) U/L Alkaline Phosphatase (38-126) U/L Total Protein (6.3-8.2) g/dL Albumin (3.5-5.0) g/dL Blood Type Blood Type Confirm Blood Type Recheck Bld Type Recheck Status Antibody Screen Crossmatch Spec Expiration Date Critical Care Time Critical Care Time: Yes Total Critical Care Time: 35 Disposition Clinical Impression: Gastrointestinal hemorrhage, Upper gastrointestinal hemorrhage Disposition: OTHER INSTITUTION NOT DEFINED Condition: Stable Is patient prescribed a controlled substance at d/c from ED?: No Referrals: Yahaira Foote MD [Primary Care Provider] - 1-2 days Time of Disposition: 18:04 - Out of Hospital Transfer - Req. Specs Out of Hospital Transfer - Requested Specifics: Other Emergency Center (Transfer to [facility])
[2023-08-19] MEDS: PANTOPRAZOLE 40 MG/10 ML VIAL IVP STA ×2 (16:42)
[2023-08-19] MEDS: ONDANSETRON 4 MG/2 ML VIAL IVP STA (16:42)
[2023-08-19 16:56] LABS: ALT 53 U/L (4-49); AST 30 U/L (17-59); African American GFR (CKD) >90 (>60 ml/min/1.73 sqM); Albumin 3.2 g/dL (3.5-5.0); Alkaline Phosphatase 96 U/L (38-126); Anion Gap 13 mmol/L; Blood Urea Nitrogen 47 mg/dL (9-20); Calcium 9.2 mg/dL (8.4-10.2); Carbon Dioxide 16 mmol/L (22-30); Chloride 102 mmol/L (98-107); Glucose 221 mg/dL (74-99); Non-African American GFR(CKD) >90 (>60 ml/min/1.73 sqM); Potassium 5.7 mmol/L (3.5-5.1); Sodium 131 mmol/L (137-145); Total Bilirubin 0.8 mg/dL (0.2-1.3); Total Protein 6.1 g/dL (6.3-8.2)
[2023-08-19 17:01] LABS: INR 1.2 (<1.2); Partial Thromboplastin Time 23.1 sec (22.0-30.0); Prothrombin Time 12.9 sec (10.0-12.5)
[2023-08-19 17:11] LABS: Basophils # (A) 0.1 k/uL (0-0.2); Basophils % (A) 0 %; Eosinophils % (A) 0 %; HCT 32.7 % (39.0-53.0); HGB 10.5 gm/dL (13.0-17.5); Lymphocytes # (A) 1.7 k/uL (1.0-4.8); Lymphocytes % (A) 8 %; MCH 28.1 pg (25.0-35.0); MCHC 32.1 g/dL (31.0-37.0); MCV 87.7 fL (80.0-100.0); Monocytes # (A) 0.9 k/uL (0-1.0); Monocytes % (A) 5 %; Neutrophils # (A) 18.1 k/uL (1.3-7.7); Neutrophils % (A) 86 %; Platelet Count 551 k/uL (150-450); RBC 3.73 m/uL (4.30-5.90); RDW 14.3 % (11.5-15.5); WBC 21.1 k/uL (3.8-10.6)
[2023-08-19] MEDS ORDERED: SODIUM CHLORIDE 0.9% 1,000 ML IV SCH (17:15)
[2023-08-19 17:57] LABS: Glucose,Whole Blood 265 mg/dL (70-110)
[2023-08-19 19:30] LABS: Glucose,Whole Blood 162 mg/dL (70-110)
[2023-08-19 19:43] VITALS: BP 136/82; PULSE 99; TEMP 97.6
== END 2023-08-19 19:32 | disposition other institution (70) ==
LOC: EC 15:51
DX: K92.2 Gastrointestinal hemorrhage, unspecified (principal); I25.10 Atherosclerotic heart disease of native coronary artery without angina pectoris; I44.7 Left bundle-branch block, unspecified; E11.9 Type 2 diabetes mellitus without complications; I10 Essential (primary) hypertension; Z79.82 Long term (current) use of aspirin; Z79.84 Long term (current) use of oral hypoglycemic drugs
CPT/HCPCS: 99291 ×2; 96374 ×2; 96375 ×2; 36415; 93005; 86900; 86901; 80053; 83605; 85025; 85610; 85730; 86850; 86920; 36430; P9016; J2405; C9113

== ENCOUNTER 2023-09-09 12:14 | Inpatient (IN) | payer BC ==
[2023-09-09] MEDS: DEXTROSE 5% IN WATER 100 ML with AMIODARONE 150 MG IV ONE (12:38)
--- NOTE | 2023-09-09 12:38 | ED ---
General Adult HPI - General Chief complaint: Arrhythmia/Palpitations Stated complaint: Tachycardia Time Seen by Provider: 09/09/23 12:17 Source: patient, RN notes reviewed, old records reviewed Mode of arrival: EMS Limitations: no limitations - History of Present Illness Initial comments: 62-year-old male presenting from the [facility] office with tachycardia, history of cardiomyopathy status post AICD. Patient states he has been off of his medications and is uncertain why this is the case. [facility] He had a recent hospitalization with upper GI bleed which she states did result in endoscopy at [facility] and the patient reports this was unremarkable with no source of bleeding. He is currently off antico agulation. He states he is off all medications and again is uncertain why. He does have plan for orthopedic surgical procedure in approximately 2 weeks. Patient himself has no complaints. He was sent by Dr. Blevins with tiffany dysrhythmia, recommendations for amiodarone. - Related Data Home Medications Medication Instructions Recorded Confirmed Multivitamins, Thera [Multivitamin 1 tab PO BID@0800,1600 07/22/15 08/19/23 (formulary)] Aspirin 81 mg PO DAILY 07/25/15 08/19/23 Carvedilol [Coreg] 25 mg PO BID@0800,1600 12/30/15 08/19/23 Spironolactone [Aldactone] 25 mg PO DAILY 12/30/15 08/19/23 metFORMIN HCL [Glucophage] 500 mg PO DAILY 05/11/23 08/19/23 Betamethasone Dipropionate 1 applic TOPICAL Q12H PRN 07/28/23 08/19/23 [Diprolene 0.05% Cream (GEQ)] Calcipotriene 0.005% Cream 1 applic TOPICAL BID PRN 07/28/23 08/19/23 Calcium Carbonate [Calcium] 600 mg PO BID@0800,1600 07/28/23 08/19/23 Levothyroxine Sodium [Synthroid] 50 mcg PO DAILY 07/28/23 08/19/23 Omeprazole [PriLOSEC] 20 mg PO DAILY 08/19/23 08/19/23 Ondansetron Odt [Zofran ODT] 4 mg PO Q8HR PRN 08/19/23 08/19/23 predniSONE See Taper PO DIRECTED 08/19/23 08/19/23 Previous Rx's Medication Instructions Recorded Gabapentin [Neurontin] 300 mg PO BID 3 Days #6 cap 08/05/23 Allergies Allergy/AdvReac Type Severity Reaction Status Date / Time No Known Allergies Allergy Verified 08/19/23 16:28 Review of Systems ROS Statement: Those systems with pertinent positive or pertinent negative responses have been documented in the HPI. ROS Other: All systems not noted in ROS Statement are negative. Past Medical History Past Medical History: Coronary Artery Disease (CAD), Diabetes Mellitus, Hyperlipidemia, Hypertension, Osteoarthritis (OA), Skin Disorder Additional Past Medical History / Comment(s): poor appetite lately, psoriasis, falls, DDD, left renal cyst/lesion, nonischemic cardiomyopathy, rectal polyp History of Any Multi-Drug Resistant Organisms: None Reported Past Surgical History: AICD, Heart Catheterization, Pacemaker Additional Past Surgical History / Comment(s): colonoscopy with rectal polyp biopsy aicd Past Anesthesia/Blood Transfusion Reactions: No Reported Reaction Additional Past Anesthesia/Blood Transfusion Reaction / Comment(s): na Type of Cardiac Device: AICD Device Placement Date:: 01/05/16 Past Psychological History: No Psychological Hx Reported Smoking Status: Never smoker Past Alcohol Use History: None Reported Past Drug Use History: None Reported - Past Family History Father History Unknown: Yes Additional Family Medical History / Comment(s): , pt doesnt know cause Mother History Unknown: Yes Additional Family Medical History / Comment(s): , pt doesnt know cause General Exam Limitations: no limitations General appearance: alert, in no apparent distress Head exam: Present: atraumatic, normocephalic Eye exam: Present: normal appearance, PERRL ENT exam: Present: normal exam Neck exam: Present: normal inspection. Absent: tenderness, meningismus Respiratory exam: Present: normal lung sounds bilaterally. Absent: respiratory distress, wheezes Cardiovascular Exam: Present: normal rhythm, tachycardia GI/Abdominal exam: Present: soft. Absent: distended, tenderness, guarding Extremities exam: Present: normal inspection, normal capillary refill. Absent: pedal edema Neurological exam: Present: alert, oriented X3, CN II-XII intact. Absent: motor sensory deficit Psychiatric exam: Present: normal affect, normal mood Skin exam: Present: pallor Course Vital Signs 09/09/23 09/09/23 09/09/23 12:21 12:27 12:37 Temperature 98 F Pulse Rate 149 H 144 H Pulse Rate [ Tarp Repairer ] Respiratory 20 20 20 Rate Blood Pressure 120/76 105/66 Blood Pressure [Right Arm] O2 Sat by Pulse 98 96 98 Oximetry 09/09/23 09/09/23 09/09/23 12:42 12:45 12:47 Temperature Pulse Rate Pulse Rate [ 134 H 144 H Tarp Repairer ] Respiratory 20 20 Rate Blood Pressure Blood Pressure 101/63 [Right Arm] O2 Sat by Pulse 98 Oximetry 09/09/23 13:23 Temperature Pulse Rate 125 H Pulse Rate [ Tarp Repairer ] Respiratory 20 Rate Blood Pressure 111/71 Blood Pressure [Right Arm] O2 Sat by Pulse 99 Oximetry Medical Decision Making - Medical Decision Making Was pt. sent in by a medical professional or institution (Dr. PA, [facility], urgent care, hospital, or [facility]...) When possible be specific @ -No Did you speak to anyone other than the patient for history (EMS, parent, family, police, friend...)? What history was obtained from this source @ -No Did you review nursing and triage notes (agree or disagree)? Why? @ -I reviewed and agree with nursing and triage notes Were old charts reviewed (outside hosp., previous admission, EMS record, old EKG, old radiological studies, urgent care reports/EKG's, [facility] records)? Report findings @ -No old charts were reviewed Differential Diagnosis (chest pain, altered mental status, abdominal pain women, abdominal pain men, vaginal bleeding, weakness, fever, dyspnea, syncope, headache, dizziness, GI bleed, back pain, seizure, CVA, palpatations, mental health, musculoskeletal)? @Differential Palpitations Ventricular arrhythmias, atrial arrhythmias, myocardial infarction, anemia, thyrotoxicosis, electrolyte imbalance, hypokalemia, pulmonary embolism, pulmonary disease, drugs, alcohol, anxiety, stress.... This is not meant to be an all-inclusive list. EKG interpreted by me (3pts min.). @ -Wide-complex regular tachycardia suspect atrial flutter with 2 1 conduction rate of 150, QRS duration 166, QTc 414, left bundle branch block, history of left bundle branch block. X-rays interpreted by me (1pt min.). @ -Chest x-ray negative for acute cardiopulmonary findings CT interpreted by me (1pt min.). @ -None done U/S interpreted by me (1pt. min.). @ -None done What testing was considered but not performed or refused? (CT, X-rays, U/S, labs)? Why? @ -None What meds were considered but not given or refused? Why? @ -None Did you discuss the management of the patient with other professionals (professionals i.e. Dr., PA, CPAS, lab, RT, psych nurse, social media job titles, human resources coordinator, teacher, emergency communications officer, manager of case management)? Give summary @Discussed with Dr. Hollingsworth who will admit. Was smoking cessation discussed for >3mins.? @ -No Was critical care preformed (if so, how long)? @ -yes, 35 min Were there social determinants of health that impacted care today? How? (Homelessness, low income, unemployed, alcoholism, drug addiction, transportation, low edu. Level, literacy, decrease access to med. care, intermediate, rehab)? @ -No Was there de-escalation of care discussed even if they declined (Discuss DNR or withdrawal of care, Hospice)? DNR status @ -No What co-morbidities impacted this encounter? (DM, HTN, Smoking, COPD, CAD, Cancer, CVA, ARF, Chemo, Hep., AIDS, mental health diagnosis, sleep apnea, morbid obesity)? @Cardiomyopathy, anemia, debility Was patient admitted / discharged? Hospital course, mention meds given and route, prescriptions, significant lab abnormalities, going to OR and other pertinent info. @ -[62-year-old male presenting for evaluation after noting a tacky dysrhythmia in the [facility] office. Patient is asymptomatic without complaint. He is in a wide-complex rhythm at a rate of 150, suggestive of atrial flutter with 2 1 conduction and known left bundle branch block. Patient is started on amiodarone at the request of Dr. Penn who is familiar with the patient. He will be admitted to internal medicine with cardiology on consult. Undiagnosed new problem with uncertain prognosis? @ -No Drug Therapy requiring intensive monitoring for toxicity (Heparin, Nitro, Insulin, Cardizem)? @ -No Were any procedures done? @ -No Diagnosis/symptom? @ -[Wide-complex tachycardia Acute, or Chronic, or Acute on Chronic? @ -Acute Uncomplicated (without systemic symptoms) or Complicated (systemic symptoms)? @ -[complicated Side effects of treatment? @ -[No Exacerbation, Progression, or Severe Exacerbation? @ -No Poses a threat to life or bodily function? How? (Chest pain, USA, ID, pneumonia, PE, COPD, DKA, ARF, appy, cholecystitis, CVA, Diverticulitis, Homicidal, Suicidal, threat to staff... and all critical care pts) @Yes, arrhythmia - Lab Data Result diagrams: 09/09/23 12:28 09/09/23 12: Lab Results 09/09/23 09/09/23 09/09/23 Range/Units 12:28 12: 12:28 WBC 10.0 (3.8-10.6) k/uL RBC 3.70 L (4.30-5.90) m/uL Hgb 9.6 L (13.0-17.5) gm/dL Hct 31.6 L (39.0-53.0) % MCV 85.2 (80.0-100.0) fL MCH 26.0 (25.0-35.0) pg MCHC 30.5 L (31.0-37.0) g/dL RDW 16.5 H (11.5-15.5) % Plt Count 484 H (150-450) k/uL MPV 8.7 Neutrophils % 77 % Lymphocytes % 15 % Monocytes % 6 % Eosinophils % 1 % Basophils % 1 % Neutrophils # 7.7 (1.3-7.7) k/uL Lymphocytes # 1.5 (1.0-4.8) k/uL Monocytes # 0.6 (0-1.0) k/uL Eosinophils # 0.1 (0-0.7) k/uL Basophils # 0.1 (0-0.2) k/uL Hypochromasia Marked Poikilocytosis Slight Anisocytosis Slight PT 12.7 H (10.0-12.5) sec INR 1.2 H (<1.2) APTT 25.7 (22.0-30.0) sec Sodium 134 L (137-145) mmol/L Potassium 4.5 (3.5-5.1) mmol/L Chloride 100 (98-107) mmol/L Carbon Dioxide 20 L (22-30) mmol/L Anion Gap 14 mmol/L BUN 19 (9-20) mg/dL Creatinine 0.82 (0.66-1.25) mg/dL Est GFR (CKD-EPI)AfAm >90 (>60 ml/min/1.73 sqM) Est GFR (CKD-EPI)NonAf >90 (>60 ml/min/1.73 sqM) Glucose 187 H (74-99) mg/dL Calcium 9.3 (8.4-10.2) mg/dL Magnesium 1.2 L (1.6-2.3) mg/dL Total Bilirubin 0.7 (0.2-1.3) mg/dL AST 36 (17-59) U/L ALT 40 (4-49) U/L Alkaline Phosphatase 143 H (38-126) U/L Total Protein 6.9 (6.3-8.2) g/dL Albumin 3.2 L (3.5-5.0) g/dL TSH 4.300 (0.465-4.680) mIU/L Critical Care Time Critical Care Time: Yes Total Critical Care Time: 35 Disposition Clinical Impression: Atrial flutter, Tachycardia Disposition: ADMITTED IP TO THIS [facility] Condition: Stable Is patient prescribed a controlled substance at d/c from ED?: No Referrals: Yahaira Foote MD [Primary Care Provider] - 1-2 days Time of Disposition: 13:29
[2023-09-09] MEDS: AMIODARONE 360 MG in DEXTROSE 5% IN WATER 200 ML IV ONE (12:40)
[2023-09-09 12:43] LABS: Anisocytosis Slight; Basophils # (A) 0.1 k/uL (0-0.2); Basophils % (A) 1 %; Eosinophils # (A) 0.1 k/uL (0-0.7); Eosinophils % (A) 1 %; HCT 31.6 % (39.0-53.0); HGB 9.6 gm/dL (13.0-17.5); Hypochromasia Marked; Lymphocytes # (A) 1.5 k/uL (1.0-4.8); Lymphocytes % (A) 15 %; MCHC 30.5 g/dL (31.0-37.0); MCV 85.2 fL (80.0-100.0); Mean Platelet Volume 8.7; Monocytes # (A) 0.6 k/uL (0-1.0); Monocytes % (A) 6 %; Neutrophils # (A) 7.7 k/uL (1.3-7.7); Neutrophils % (A) 77 %; Platelet Count 484 k/uL (150-450); Poikilocytosis Slight; RDW 16.5 % (11.5-15.5)
[2023-09-09 12:51] LABS: ALT 40 U/L (4-49); AST 36 U/L (17-59); African American GFR (CKD) >90 (>60 ml/min/1.73 sqM); Albumin 3.2 g/dL (3.5-5.0); Alkaline Phosphatase 143 U/L (38-126); Anion Gap 14 mmol/L; Blood Urea Nitrogen 19 mg/dL (9-20); Calcium 9.3 mg/dL (8.4-10.2); Carbon Dioxide 20 mmol/L (22-30); Chloride 100 mmol/L (98-107); Glucose 187 mg/dL (74-99); Magnesium 1.2 mg/dL (1.6-2.3); Non-African American GFR(CKD) >90 (>60 ml/min/1.73 sqM); Potassium 4.5 mmol/L (3.5-5.1); Sodium 134 mmol/L (137-145); Total Bilirubin 0.7 mg/dL (0.2-1.3); Total Protein 6.9 g/dL (6.3-8.2)
[2023-09-09 12:53] LABS: INR 1.2 (<1.2); Partial Thromboplastin Time 25.7 sec (22.0-30.0); Prothrombin Time 12.7 sec (10.0-12.5)
--- NOTE | 2023-09-09 13:11 | XR ---
EXAMINATION TYPE: XR chest 1V DATE OF EXAM: 09/09/2023 COMPARISON: 07/28/2023 HISTORY: Tachycardia TECHNIQUE: Single frontal view of the chest is obtained. FINDINGS: There is no focal air space opacity, pleural effusion, or pneumothorax seen. Heart size is prominent. Diffuse osteopenia, degenerative changes spine arthropathy of the shoulders. Single lead cardiac device stable. Mild atherosclerotic change aorta.. IMPRESSION: No acute process.
[2023-09-09] MEDS ORDERED: NALOXONE 0.4 MG/ML 1 ML VIAL IV PRN (13:23)
[2023-09-09] MEDS ORDERED: ACETAMINOPHEN TAB 325 MG TAB PO PRN (13:23)
[2023-09-09] MEDS: MAGNESIUM SULFATE-D5W PMX 1 GM in DEXTROSE/WATER 1 100ML.BAG IVPB SCH ×2 (14:12→23:01)
[2023-09-09] MEDS: AMIODARONE 450 MG in DEXTROSE 5% IN WATER 250 ML IV SCH (18:08)
--- NOTE | 2023-09-09 22:34 | P.HPIM ---
History of Present Illness H&P Date: 09/09/23 Chief Complaint: Arrhythmia Patient is a 62-year-old male with a past medical history of nonischemic cardiomyopathy with AICD implantation, mild nonobstructive coronary artery disease, diabetes type 2 diet controlled, hypertension, hyperlipidemia and osteoarthritis. Patient was recently seen in the ER on 08/19/2023 with hematemesis and was transferred to different hospital facility due to GI bleed. Patient had EGD done at [facility] and the patient reports that this was unremarkable with no source of bleeding as per patient. Patient is currently off anticoagul ation. Patient was seen at Dr. Penn office and was found to be in atrial flutter/tachyarrhythmia and was transferred to ER for amiodarone drip. Patient is currently at rehab. Otherwise denies any headache or dizziness. No fever no chills. No cough or sputum production. Denied palpitations. Patient is somewhat poor historian. EKG showed ectopic atrial tachycardia with short [place] interval possible atrial flutter Chest x-ray showed no acute process. Patient was previously admitted to the hospital in July 2023 due to failure to thrive and generalized weakness and acute kidney injury. Aldactone and lisinopril is on hold due to acute kidney injury at the time. Laboratory data showed WBC 10.0 hemoglobin 9.6 and platelets 484 Sodium 134 potassium 4.5 chloride 100 bicarb is 20 BUN 19 and creatinine 0.8 and blood sugar 187 and magnesium 1.2. AST 36 ALT 40 and alk phos 143 and troponin x 3 negative and albumin 3.2. TSH 4.30 Recent laboratory data done on 09/02/2023 showed hemoglobin 7.4 and platelets 249 and WBC 7.07 Sodium 132 potassium 4.3 chloride 95 bicarb is 22.3 BUN 13.8 and creatinine 0.7 and blood sugar 126 Iron profile showed iron level 11 transferrin saturation 6.55 and TIBC 168 and ferritin 474, vitamin D level 23.6. Review of Systems Constitutional: Patient denies any fever or chills . No generalized weakness or weight loss. Abdomen: Patient denied nausea vomiting and diarrhea and abdominal pain. Cardiovascular: Patient denies any chest pain or short of breath. Palpitations. Respiratory: patient denied any cough is from production. No shortness of breath Neurologic: Patient denied any numbness or tingling headache. Musculoskeletal: Patient denies any complaints of joint swelling or deformity. Skin: Negative Psychiatric: Negative Endocrine: No heat or cold intolerance. No recent weight gain. Genitourinary: No dysuria or hematuria. All other 14 point ROS negative except the above Past Medical History Past Medical History: Coronary Artery Disease (CAD), Diabetes Mellitus, Hyperlipidemia, Hypertension, Osteoarthritis (OA), Skin Disorder Additional Past Medical History / Comment(s): poor appetite lately, psoriasis, falls, DDD, left renal cyst/lesion, nonischemic cardiomyopathy, rectal polyp History of Any Multi-Drug Resistant Organisms: None Reported Past Surgical History: AICD, Heart Catheterization, Pacemaker Additional Past Surgical History / Comment(s): colonoscopy with rectal polyp biopsy aicd Past Anesthesia/Blood Transfusion Reactions: No Reported Reaction Additional Past Anesthesia/Blood Transfusion Reaction / Comment(s): na Type of Cardiac Device: AICD Device Placement Date:: 01/05/16 Past Psychological History: No Psychological Hx Reported Smoking Status: Never smoker Past Alcohol Use History: None Reported Past Drug Use History: None Reported - Past Family History Father History Unknown: Yes Additional Family Medical History / Comment(s): , pt doesnt know cause Mother History Unknown: Yes Additional Family Medical History / Comment(s): , pt doesnt know cause Medications and Allergies Home Medications Medication Instructions Recorded Confirmed Type Levothyroxine Sodium [Synthroid] 50 mcg PO DAILY 07/28/23 09/09/23 History Gabapentin [Neurontin] 300 mg PO BID 3 Days #6 cap 08/05/23 09/09/23 Rx Atorvastatin [Lipitor] 10 mg PO HS 09/09/23 09/09/23 History Pantoprazole Sodium [Protonix] 40 mg PO DAILY 09/09/23 09/09/23 History Allergies Allergy/AdvReac Type Severity Reaction Status Date / Time No Known Allergies Allergy Verified 09/09/23 14:27 Physical Exam Vitals: Vital Signs Temp Pulse Pulse Resp BP BP Pulse Ox 09/09/23 21:45 103 H 20 127/74 96 09/09/23 21:30 108 H 19 114/64 98 09/09/23 21:15 101 H 19 116/63 98 09/09/23 21:00 105 H 24 123/73 98 09/09/23 20:45 105 H 25 H 128/77 99 09/09/23 20:43 108 H 25 H 128/77 98 09/09/23 19:35 106 H 16 116/66 99 09/09/23 18:47 100 100 20 121/74 121/74 97 09/09/23 17:25 98 98 16 114/61 114/61 99 09/09/23 16:46 100 100 20 114/74 114/74 98 09/09/23 16:00 100 16 114/74 98 09/09/23 15:00 103 H 103 H 20 121/63 120/63 98 09/09/23 14:41 105 H 20 115/65 98 09/09/23 13:36 124 H 20 106/65 98 09/09/23 13:27 124 H 20 104/65 09/09/23 13:23 125 H 20 111/71 99 09/09/23 12:47 20 09/09/23 12:45 144 H 09/09/23 12:42 134 H 20 101/63 98 09/09/23 12:37 144 H 20 105/66 98 09/09/23 12:27 20 96 09/09/23 12:21 98 F 149 H 20 120/76 98 Intake and Output 09/09/23 09/09/23 09/09/23 06:59 14:59 22:59 Other: Weight 88.904 kg PHYSICAL EXAMINATION: Patient is lying in the bed comfortably, no acute distress, awake alert and oriented x 2-3. Poor historian... HEENT: Normocephalic. Neck is supple. Pupils reactive. Nostrils clear. Oral cavity is moist. Neck reveals no JVD, carotid bruits, or thyromegaly. CHEST EXAMINATION: Trachea is central. Symmetrical expansion. Lung montemayor clear to auscultation and percussion. CARDIAC: Normal S1, S2 with no gallops. No murmurs ABDOMEN: Soft. Bowel sounds normal. No organomegaly. No abdominal bruits. Extremities: reveal no edema. No clubbing or cyanosis Neurologically awake, alert, oriented x 2-3 with well-coordinated movements. No focal deficits noted Skin: No rash or skin lesions. Psychiatric: Coperative. Nonsuicidal Musculoskeletal: No joint swelling or deformity. Normal range of motion. Results CBC & Chem 7: 09/09/23 12:28 09/09/23 12:28 Labs: Abnormal Lab Results - Last 24 Hours (Table) 09/09/23 09/09/23 09/09/23 Range/Units 12:28 12:28 12:28 RBC 3.70 L (4.30-5.90) m/uL Hgb 9.6 L (13.0-17.5) gm/dL Hct 31.6 L (39.0-53.0) % MCHC 30.5 L (31.0-37.0) g/dL RDW 16.5 H (11.5-15.5) % Plt Count 484 H (150-450) k/uL PT 12.7 H (10.0-12.5) sec INR 1.2 H (<1.2) Sodium 134 L (137-145) mmol/L Carbon Dioxide 20 L (22-30) mmol/L Glucose 187 H (74-99) mg/dL Magnesium 1.2 L (1.6-2.3) mg/dL Alkaline Phosphatase 143 H (38-126) U/L Albumin 3.2 L (3.5-5.0) g/dL Thrombosis Risk Factor Assmnt - DVT/VTE Prophylaxis DVT/VTE Prophylaxis: Mechanical Prophylaxis ordered Assessment and Plan Assessment: Atrial flutter with rapid ventricular rate Nonischemic cardiomyopathy with ejection fraction 30 to 35% with severe global hypokinesis with history of AICD placement Mild nonobstructive coronary artery disease Recent admission to ER with hematemesis on 08/19/2023, transferred to [facility] status post EGD per patient and no evidence of bleeding. Normocytic anemia with evidence of iron deficiency. Hemoglobin 9.6 and most recent 7.4 on 09/02/2023. Vitamin D deficiency Hypovolemic hyponatremia Prediabetes with recent A1c 5.8 Hypertension Hypothyroidism Hypomagnesemia replaced. DVT prophylaxis with SCDs and GI prophylaxis with PPI Plan: Patient will be continued on telemetry. Started on amiodarone drip as per cardiology recommendations. Replace electrolytes. Monitor H&H and patient will need iron supplementation. Hematology consult for evaluation of anemia. Continue to follow closely. PT OT will be consulted. Prognosis is guarded at this time. Time with Patient: Greater than 30
[2023-09-09 22:59] LABS: Glucose,Whole Blood 164 mg/dL (70-110)
[2023-09-09] MEDS: GABAPENTIN 300 MG CAP PO SCH (23:01)
[2023-09-09] MEDS: ATORVASTATIN 10 MG TAB PO SCH (23:01)
[2023-09-10] MEDS ORDERED: HEPARIN SODIUM,PORCINE 5,000 UNIT/ML 1 ML VIAL SQ SCH
[2023-09-10 03:28] LABS: Appearance,Urine Clear (Clear); Bilirubin,Urine Negative (Negative); Blood,Urine Negative (Negative); Color,Urine Colorless; Glucose,Urine (UA) Negative (Negative); Hyaline Casts,Urine 6 /lpf (0-2); Ketones,Urine Negative (Negative); Leukocyte Esterase,Urine Moderate (Negative); Mucus,Urine Rare /hpf; Nitrite,Urine Negative (Negative); PH, Urine 5.5 (5.0-8.0); Protein,Urine Negative (Negative); RBC,Urine <1 /hpf (0-5); Specific Gravity,Urine 1.008 (1.001-1.035); Squamous Epithelial Cell,Urine <1 /hpf (0-4); WBC,Urine 24 /hpf (0-5)
[2023-09-10] MEDS: FERROUS SULFATE 325 MG TAB PO SCH (06:29)
[2023-09-10] MEDS: PANTOPRAZOLE 40 MG TABLET PO SCH (06:29)
[2023-09-10] MEDS: LEVOTHYROXINE 50 MCG TAB PO SCH (06:29)
[2023-09-10] MEDS: CHOLECALCIFEROL 25 MCG (1000 IU) TABLET PO SCH (08:07)
[2023-09-10] MEDS: AMIODARONE 200 MG TAB PO SCH (11:49)
[2023-09-10 12:19] VITALS: BMI 31.6
--- NOTE | 2023-09-10 12:22 | P.CRDCN ---
History of Present Illness History of present illness: HISTORY OF PRESENT ILLNESS: This is a 62-year-old male with a past medical history significant for nonischemic cardiomyopathy, AICD implantation, hypertension, hyperlipidemia, nonobstructive CAD, and recent GI bleed. Patient follows in the office with Dr. Penn. We have been asked to see the patient in consultation for atrial flutter. Patient examined at the bedside. Patient was seen at Dr. Penn's office yesterday for post hospital follow-up. The patient was recently admitted at [facility] secondary to GI bleed and hypotension. When patient presented to the office he had an EKG performed revealing possible atrial flutter with a heart rate in the 150s. He was directed to come to the emergency room by Dr. Penn. The patient was started on IV amiodarone. This morning, telemetry reveals sinus mechanism with a heart rate in 90s. He denies any chest pain or pressure. He denies SOB. He denies palpitations. DIAGNOSTICS: - EKG reveals wide-complex tachycardia with left bundle branch block - Chest xray negative for acute process - Laboratory data: WBC 10.0. Hemoglobin 9.6. Platelet count 484. Sodium 134. Potassium 4.5. BUN 19. Creatinine 0.82. Troponin negative x 3. TSH 4.300. - Current home cardiac medications include Lipitor 10 mg at night. - Most recent echocardiogram obtained on 07/29/2023 revealed ejection fraction 30 to 35%, severe global hypokinesia, mild TR, mild MR - Cardiac catheterization history: July 2015 revealing ejection fraction of 35% with 50% lesion of the ostial D1 REVIEW OF SYSTEMS: At the time of my exam: CONSTITUTIONAL: Denies fever or chills. HEENT: Denies blurred vision, vision changes, or eye pain. Denies hemoptysis CARDIOVASCULAR: Denies chest pain. Denies orthopnea. Denies PND. Denies palpitations RESPIRATORY: Denies shortness of breath. GASTROINTESTINAL: Denies abdominal pain. Denies nausea or vomiting. HEMATOLOGIC: Denies bleeding disorders. GENITOURINARY: Denies any blood in urine. SKIN: Denies pruitis. Denies rash. PHYSICAL EXAM: VITAL SIGNS: Reviewed. GENERAL: Well-developed in no acute distress. HEENT: Head is normocephalic. Pupils are equal, round. Sclerae anicteric. Mucous membranes of the mouth are moist. Neck supple. No JVD or thyromegaly LUNGS: Respirations even and unlabored. Lungs essentially clear to auscultation bilaterally. HEART: Regular rate and rhythm. S1 and S2 heard. ABDOMEN: Soft. Nondistended. Nontender. EXTREMITIES: Normal range of motion. No clubbing or cyanosis. Peripheral p ulses intact. Dressings to bilateral lower extremities NEUROLOGIC: Awake and alert. Oriented x 3. ASSESSMENT: Wide-complex tachycardia: SVT (with LBBB) vs venticular tachycardia Known left bundle branch block Recent hospitalization for GI bleed and hypotension at [facility] Nonischemic cardiomyopathy, EF 35% History of AICD implantation, single chamber, [facility] Mild nonobstructive CAD Hypertension Hyperlipidemia History of psoriasis PLAN: No need to repeat echocardiogram as this was obtained last month Repeat EKG Interrogate AICD for further evaluation of arrhythmia TSH checked and WNL Continue home cardiac medications No anticoagulation due to recent hospitalization for GI bleed Continue IV amio. Switch to oral when infusion is complete. Consider EP study on an outpatient basis Further recommendations pending patient course Nurse practitioner note has been reviewed by physician. Signing provider agrees with the documented findings, assessment, and plan of care documented by SENIOR MEDICAL DIRECTOR as a scribe. Past Medical History Past Medical History: Coronary Artery Disease (CAD), Diabetes Mellitus, Hyperlipidemia, Hypertension, Osteoarthritis (OA), Skin Disorder Additional Past Medical History / Comment(s): poor appetite lately, psoriasis, falls, DDD, left renal cyst/lesion, nonischemic cardiomyopathy, rectal polyp History of Any Multi-Drug Resistant Organisms: None Reported Past Surgical History: AICD, Heart Catheterization, Pacemaker Additional Past Surgical History / Comment(s): colonoscopy with rectal polyp biopsy, aicd Past Anesthesia/Blood Transfusion Reactions: No Reported Reaction Additional Past Anesthesia/Blood Transfusion Reaction / Comment(s): na Type of Cardiac Device: AICD Device Placement Date:: 01/05/16 Past Psychological History: No Psychological Hx Reported Smoking Status: Never smoker Past Alcohol Use History: None Reported Past Drug Use History: None Reported - Past Family History Father History Unknown: Yes Additional Family Medical History / Comment(s): , pt doesnt know cause Mother History Unknown: Yes Additional Family Medical History / Comment(s): , pt doesnt know cause Medications and Allergies Home Medications Medication Instructions Recorded Confirmed Type Levothyroxine Sodium [Synthroid] 50 mcg PO DAILY 07/28/23 09/09/23 History Gabapentin [Neurontin] 300 mg PO BID 3 Days #6 cap 08/05/23 09/09/23 Rx Atorvastatin [Lipitor] 10 mg PO HS 09/09/23 09/09/23 History Pantoprazole Sodium [Protonix] 40 mg PO DAILY 09/09/23 09/09/23 History Allergies Allergy/AdvReac Type Severity Reaction Status Date / Time No Known Allergies Allergy Verified 09/09/23 14:27 Physical Exam Vitals: Vital Signs Temp Pulse Pulse Pulse Resp BP BP 09/10/23 08:11 93 16 09/10/23 08:00 98.1 F 93 16 100/57 09/10/23 04:00 97.6 F 98 16 108/54 09/10/23 02:00 98 109 H 18 09/09/23 23:00 97.8 F 109 H 18 119/67 09/09/23 22:30 101 H 19 127/67 09/09/23 22:15 104 H 25 H 114/66 09/09/23 22:00 102 H 24 112/63 09/09/23 21:45 103 H 20 127/74 09/09/23 21:30 108 H 19 114/64 09/09/23 21:15 101 H 19 116/63 09/09/23 21:00 105 H 24 123/73 09/09/23 20:45 105 H 25 H 128/77 09/09/23 20:43 108 H 25 H 128/77 09/09/23 20:20 98 16 111/65 09/09/23 20:05 98 16 117/62 09/09/23 19:50 105 H 16 114/65 09/09/23 19:35 106 H 16 116/66 09/09/23 19:17 99 16 114/66 09/09/23 19:00 99 16 108/63 09/09/23 18:47 100 100 20 121/74 121/74 09/09/23 17:25 98 98 16 114/61 114/61 09/09/23 16:46 100 100 20 114/74 114/74 09/09/23 16:00 100 16 114/74 09/09/23 15:00 103 H 103 H 20 121/63 120/63 09/09/23 14:41 105 H 20 115/65 09/09/23 13:36 124 H 20 106/65 09/09/23 13:27 124 H 20 104/65 09/09/23 13:23 125 H 20 111/71 09/09/23 12:47 20 09/09/23 12:45 144 H 09/09/23 12:42 134 H 20 101/63 09/09/23 12:37 144 H 20 105/66 09/09/23 12:27 20 09/09/23 12:21 98 F 149 H 20 120/76 Pulse Ox 09/10/23 08:11 09/10/23 08:00 98 09/10/23 04:00 98 09/10/23 02:00 09/09/23 23:00 99 09/09/23 22:30 95 09/09/23 22:15 95 09/09/23 22:00 95 09/09/23 21:45 96 09/09/23 21:30 98 09/09/23 21:15 98 09/09/23 21:00 98 09/09/23 20:45 99 09/09/23 20:43 98 09/09/23 20:20 09/09/23 20:05 98 09/09/23 19:50 98 09/09/23 19:35 99 09/09/23 19:17 98 09/09/23 19:00 100 09/09/23 18:47 97 09/09/23 17:25 99 09/09/23 16:46 98 09/09/23 16:00 98 09/09/23 15:00 98 09/09/23 14:41 98 09/09/23 13:36 98 09/09/23 13:27 09/09/23 13:23 99 09/09/23 12:47 09/09/23 12:45 09/09/23 12:42 98 09/09/23 12:37 98 09/09/23 12:27 96 09/09/23 12:21 98 Intake and Output 09/09/23 09/10/23 09/10/23 22:59 06:59 14:59 Output Total 500 Balance -500 Output: Urine 500 Other: Voiding Method External Catheter External Catheter Weight 88.904 kg Results 09/09/23 12:28 09/09/23 12:28 Cardiac Enzymes 09/09/23 09/09/23 09/09/23 Range/Units 12: 12: 16:01 AST 36 (17-59) U/L Troponin I 0.018 0.021 (0.000-0.034) ng/mL 09/09/23 Range/Units 19:14 AST (17-59) U/L Troponin I 0.025 (0.000-0.034) ng/mL Coagulation 09/09/23 Range/Units 12: PT 12.7 H (10.0-12.5) sec APTT 25.7 (22.0-30.0) sec CBC 09/09/23 Range/Units 12: WBC 10.0 (3.8-10.6) k/uL RBC 3.70 L (4.30-5.90) m/uL Hgb 9.6 L (13.0-17.5) gm/dL Hct 31.6 L (39.0-53.0) % Plt Count 484 H (150-450) k/uL Comprehensive Metabolic Panel 09/09/23 Range/Units 12:28 Sodium 134 L (137-145) mmol/L Potassium 4.5 (3.5-5.1) mmol/L Chloride 100 (98-107) mmol/L Carbon Dioxide 20 L (22-30) mmol/L BUN 19 (9-20) mg/dL Creatinine 0.82 (0.66-1.25) mg/dL Glucose 187 H (74-99) mg/dL Calcium 9.3 (8.4-10.2) mg/dL AST 36 (17-59) U/L ALT 40 (4-49) U/L Alkaline Phosphatase 143 H (38-126) U/L Total Protein 6.9 (6.3-8.2) g/dL Albumin 3.2 L (3.5-5.0) g/dL Current Medications Generic Name Dose Route Start Last Admin Trade Name Freq PRN Reason Stop Dose Admin Acetaminophen 650 mg 09/09/23 13:23 Acetaminophen Tab 325 Mg Tab PO Q6HR PRN Mild Pain or Fever > 100.5 Atorvastatin Calcium 10 mg 09/09/23 22:00 09/09/23 23:01 Atorvastatin 10 Mg Tab PO 10 mg HS KIP Administration Cholecalciferol 25 mcg 09/10/23 09:00 09/10/23 08:07 Cholecalciferol 25 Mcg (1000 Iu) Tablet PO 25 mcg DAILY KIP Administration Ferrous Sulfate 325 mg 09/10/23 07:30 09/10/23 06:29 Ferrous Sulfate 325 Mg Tab PO 325 mg BID-W/MEALS KIP Administration Gabapentin 300 mg 09/09/23 22:15 09/10/23 08:08 Gabapentin 300 Mg Cap PO 300 mg BID KIP Administration Amiodarone HCl 450 mg/ 250 mls @ 16.667 mls/hr 09/09/23 18:30 09/09/23 18:08 Dextrose/Water IV 09/10/23 12:29 0.5 mg/min .Q15H KIP 16.667 mls/hr Administration Protocol 0.5 MG/MIN Levothyroxine Sodium 50 mcg 09/10/23 06:30 09/10/23 06:29 Levothyroxine 50 Mcg Tab PO 50 mcg DAILY@0630 KIP Administration Naloxone HCl 0.2 mg 09/09/23 13:23 Naloxone 0.4 Mg/Ml 1 Ml Vial IV Q2M PRN Opioid Reversal Pantoprazole Sodium 40 mg 09/10/23 07:30 09/10/23 06:29 Pantoprazole 40 Mg Tablet PO 40 mg [id number] KIP Administration Intake and Output 09/09/23 09/10/23 09/10/23 22:59 06:59 14:59 Output Total 500 Balance -500 Output: Urine 500 Other: Voiding Method External Catheter External Catheter Weight 88.904 kg 09/09/23 12:28 09/09/23 12:28
[2023-09-10 13:17] LABS: African American GFR (CKD) >90 (>60 ml/min/1.73 sqM); Anion Gap 12 mmol/L; Blood Urea Nitrogen 16 mg/dL (9-20); Calcium 8.6 mg/dL (8.4-10.2); Carbon Dioxide 20 mmol/L (22-30); Chloride 100 mmol/L (98-107); Glucose 162 mg/dL (74-99); Magnesium 1.7 mg/dL (1.6-2.3); Non-African American GFR(CKD) >90 (>60 ml/min/1.73 sqM); Sodium 132 mmol/L (137-145)
[2023-09-10 13:18] LABS: Anisocytosis Slight; Basophils # (A) 0.1 k/uL (0-0.2); Basophils % (A) 1 %; Eosinophils # (A) 0.1 k/uL (0-0.7); Eosinophils % (A) 1 %; HCT 28.5 % (39.0-53.0); HGB 8.4 gm/dL (13.0-17.5); Hypochromasia Marked; Lymphocytes # (A) 1.2 k/uL (1.0-4.8); Lymphocytes % (A) 14 %; MCH 26.1 pg (25.0-35.0); MCHC 29.7 g/dL (31.0-37.0); MCV 87.8 fL (80.0-100.0); Mean Platelet Volume 8.2; Monocytes # (A) 0.6 k/uL (0-1.0); Monocytes % (A) 7 %; Neutrophils # (A) 6.4 k/uL (1.3-7.7); Neutrophils % (A) 76 %; Platelet Count 350 k/uL (150-450); Poikilocytosis Slight; RBC 3.24 m/uL (4.30-5.90); RDW 16.2 % (11.5-15.5); WBC 8.4 k/uL (3.8-10.6)
[2023-09-10 13:34] LABS: T4, Free (Free Thyroxine) 1.83 ng/dL (0.78-2.19)
--- NOTE | 2023-09-10 13:44 | P.PN ---
Subjective Progress Note Date: 09/10/23 Patient is a 62-year-old male with a past medical history of nonischemic cardiomyopathy with AICD implantation, mild nonobstructive coronary artery disease, diabetes type 2 diet controlled, hypertension, hyperlipidemia and osteoarthritis. Patient was recently seen in the ER on 08/19/2023 with hematemesis and was transferred to different hospital facility due to GI bleed. Patient had EGD done at [facility] and the patient reports that this was unremarkable with no source of bleeding as per patient. Patient is currently off anticoagulation. Patient was seen at Dr. Penn office and was found to be in atrial flutter/tachyarrhythmia and was transferred to ER for amiodarone drip. Patient is currently at rehab. Otherwise denies any headache or dizziness. No fever no chills. No cough or sputum production. Denied palpitations. Patient is somewhat poor historian. EKG showed ectopic atrial tachycardia with short ND interval possible atrial flutter Chest x-ray showed no acute process. Patient was previously admitted to the hospital in July 2023 due to failure to thrive and generalized weakness and acute kidney injury. Aldactone and lisinopril is on hold due to acute kidney injury at the time. Laboratory data showed WBC 10.0 hemoglobin 9.6 and platelets 484 Sodium 134 potassium 4.5 chloride 100 bicarb is 20 BUN 19 and creatinine 0.8 and blood sugar 187 and magnesium 1.2. AST 36 ALT 40 and alk phos 143 and troponin x 3 negative and albumin 3.2. TSH 4.30 Recent laboratory data done on 09/02/2023 showed hemoglobin 7.4 and platelets 249 and WBC 7.07 Sodium 132 potassium 4.3 chloride 95 bicarb is 22.3 BUN 13.8 and creatinine 0.7 and blood sugar 126 Iron profile showed iron level 11 transferrin saturation 6.55 and TIBC 168 and ferritin 474, vitamin D level 23.6. 09/09. Patient seen and examined. Laying comfortably in the bed. Currently on amiodarone drip. Denies any palpitations. Denies any chest pain or shortness of breath. REVIEW OF SYSTEMS: CONSTITUTIONAL: No fever, no malaise,. CARDIOVASCULAR: No chest pain, no palpitations, no syncope. PULMONARY: No shortness of breath, no cough, GASTROINTESTINAL: No diarrhea, no nausea, no vomiting, no abdominal pain. NEUROLOGICAL: No headaches, no weakness, PHYSICAL EXAMINATION: GENERAL: The patient is alert and oriented x3, not in any acute distress. Well developed, well nourished. HEENT: Pupils are round and equally reacting to light. EOMI. No scleral icterus. No conjunctival pallor. Normocephalic, atraumatic. No pharyngeal erythema. No thyromegaly. CARDIOVASCULAR: S1 and S2 present. No murmurs, rubs, or gallops. Irregular in rate and rhythm PULMONARY: Chest is clear to auscultation, no wheezing or crackles. ABDOMEN: Soft, nontender, nondistended, normoactive bowel sounds. No palpable organomegaly. MUSCULOSKELETAL: No joint swelling or deformity. EXTREMITIES: No cyanosis, clubbing, or pedal edema. NEUROLOGICAL: Gross neurological examination did not reveal any focal deficits. SKIN: No rashes. Assessment and plan Atrial flutter with rapid ventricular rate Nonischemic cardiomyopathy with ejection fraction 30 to 35% with severe global hypokinesis with history of AICD placement Mild nonobstructive coronary artery disease Recent admission to ER with hematemesis on 08/19/2023, transferred to [facility] status post EGD per patient and no evidence of bleeding. Normocytic anemia with evidence of iron deficiency. Hemoglobin 9.6 and most recent 7.4 on 09/02/2023. Vitamin D deficiency Hypovolemic hyponatremia Prediabetes with recent A1c 5.8 Hypertension Hypothyroidism Hypomagnesemia replaced. DVT prophylaxis with SCDs and GI prophylaxis with PPI Monitor vital signs Monitor CBC Monitor CMP Continue telemetry monitoring Continue amiodarone drip Continue Synthroid Continue Lipitor Continue gabapentin Continue Protonix Cardiology following Hematology oncology following Labs and medication were reviewed.. Continue same treatment. Continue with symptomatic treatment. Resume home medication. Monitor labs and vitals. DVT and GI prophylaxis. Further recommendations as per clinical course of the patient Dictation was produced using [employer] dictation software. please excuse any grammatical, word or spelling errors. Objective - Vital Signs Vital signs: Vital Signs Temp 98.1 F 09/10/23 08:00 Pulse 93 09/10/23 08:11 Resp 16 09/10/23 08:11 BP 100/57 09/10/23 08:00 Pulse Ox 98 09/10/23 08:00 FiO2 Intake & Output 03/09/10/23 09/10/23 18:59 06:59 18:59 Intake Total 250 Output Total 500 Balance -500 250 Weight 88.904 kg 88.904 kg Intake: Intake, IV Titration 250 Amount Amiodarone 450 mg In 250 Dextrose 5% in Water 250 ml @ 0.5 MG/MIN 16.667 mls/hr IV .Q15H [facility] Rx#: [id number] Output: Urine 500 Other: Voiding Method External Catheter External Catheter - Labs CBC & Chem 7: 09/10/23 11:49 09/10/23 11:49 Labs: Abnormal Lab Results - Last 24 Hours (Table) 09/09/23 09/09/23 09/09/23 Range/Units 12:28 12:28 12:28 RBC 3.70 L (4.30-5.90) m/uL Hgb 9.6 L (13.0-17.5) gm/dL Hct 31.6 L (39.0-53.0) % MCHC 30.5 L (31.0-37.0) g/dL RDW 16.5 H (11.5-15.5) % Plt Count 484 H (150-450) k/uL PT 12.7 H (10.0-12.5) sec INR 1.2 H (<1.2) Sodium 134 L (137-145) mmol/L Carbon Dioxide 20 L (22-30) mmol/L Glucose 187 H (74-99) mg/dL POC Glucose (mg/dL) (70-110) mg/dL Magnesium 1.2 L (1.6-2.3) mg/dL Alkaline Phosphatase 143 H (38-126) U/L Albumin 3.2 L (3.5-5.0) g/dL Ur Leukocyte Esterase (Negative) Urine WBC (0-5) /hpf Urine WBC Clumps (None) /hpf Hyaline Casts (0-2) /lpf Urine Mucus (None) /hpf 09/09/23 09/10/23 Range/Units 22:55 02:41 RBC (4.30-5.90) m/uL Hgb (13.0-17.5) gm/dL Hct (39.0-53.0) % MCHC (31.0-37.0) g/dL RDW (11.5-15.5) % Plt Count (150-450) k/uL PT (10.0-12.5) sec INR (<1.2) Sodium (137-145) mmol/L Carbon Dioxide (22-30) mmol/L Glucose (74-99) mg/dL POC Glucose (mg/dL) 164 H (70-110) mg/dL Magnesium (1.6-2.3) mg/dL Alkaline Phosphatase (38-126) U/L Albumin (3.5-5.0) g/dL Ur Leukocyte Esterase Moderate H (Negative) Urine WBC 24 H (0-5) /hpf Urine WBC Clumps Rare H (None) /hpf Hyaline Casts 6 H (0-2) /lpf Urine Mucus Rare H (None) /hpf
[2023-09-10 23:05] LABS: % Iron Saturation 9.87 (15.00-50.00)
[2023-09-11] MEDS: ZINC OXIDE PASTE (Z-GUARD) 1 APPLIC TOPICAL PRN (00:30)
--- NOTE | 2023-09-11 09:25 | P.CONS ---
History of Present Illness - Reason for Consult Consult date: 09/10/23 anemia Requesting physician: Ace Hollingsworth - Chief Complaint tachycardia - History of Present Illness Patient is a 62-year-old male with a past medical history significant for nonischemic cardiomyopathy, AICD implantation, hypertension, hyperlipidemia, nonobstructive CAD, and recent GI bleed. Consult was placed for anemia. Patient was at his skein drier office, Dr. Penn for f/u and was noted possible atrial flutter with rate in the 150s, at which time he was directed to come to the ER for further evaluation. The patient was recently admitted earlier this month at [facility] secondary to GI bleed and hypotension. Patient was experiencing hematemesis and did have to receive a blood transfusion on 08/19/23. He was subsequently transferred to [facility] and underwent EGD which was negative for acute bleeding per patient. Last hemoglobin in EMR noted h emoglobin of 7.4 on 09/01. Upon admission hemoglobin 9.6, MCV 85.2, platelets 484,000. Creatinine 0.82, PT 12.7, INR 1.2, PTT 25.7. Upon trending labs mild anemia has been noted since 2016. Iron studies obtained on 09/01 revealed ferritin 474, iron saturation 6.5%. Patient denies any previous history of anemia prior to last admission or having to receive blood products. Patient had a colonoscopy approximately 1 year ago which was normal. He does denies any use of blood thinners. At today's visit patient reports he is feeling well. Denies shortness of breath, palpitations and chest pain. Denies abdominal pain and any acute episodes of bleeding. Review of Systems 10 point ROS is negative except as stated in the HPI Past Medical History Past Medical History: Coronary Artery Disease (CAD), Diabetes Mellitus, Hyperlip idemia, Hypertension, Osteoarthritis (OA), Skin Disorder Additional Past Medical History / Comment(s): poor appetite lately, psoriasis, falls, DDD, left renal cyst/lesion, nonischemic cardiomyopathy, rectal polyp History of Any Multi-Drug Resistant Organisms: None Reported Past Surgical History: AICD, Heart Catheterization, Pacemaker Additional Past Surgical History / Comment(s): colonoscopy with rectal polyp biopsy, aicd Past Anesthesia/Blood Transfusion Reactions: No Reported Reaction Additional Past Anesthesia/Blood Transfusion Reaction / Comm: na Type of Cardiac Device: AICD Device Placement Date:: 01/05/16 Past Psychological History: No Psychological Hx Reported Smoking Status: Never smoker Past Alcohol Use History: None Reported Past Drug Use History: None Reported - Past Family History Father History Unknown: Yes Additional Family Medical History / Comment(s): , pt doesnt know cause Mother History Unknown: Yes Additional Family Medical History / Comment(s): , pt doesnt know cause Medications and Allergies Home Medications Medication Instructions Recorded Confirmed Type Levothyroxine Sodium [Synthroid] 50 mcg PO DAILY 07/28/23 09/09/23 History Gabapentin [Neurontin] 300 mg PO BID 3 Days #6 cap 08/05/23 09/09/23 Rx Atorvastatin [Lipitor] 10 mg PO HS 09/09/23 09/09/23 History Pantoprazole Sodium [Protonix] 40 mg PO DAILY 09/09/23 09/09/23 History Allergies Allergy/AdvReac Type Severity Reaction Status Date / Time No Known Allergies Allergy Verified 09/09/23 14:27 Physical Exam Vitals: Vital Signs Temp Pulse Pulse Pulse Resp BP BP 09/10/23 11:47 101 H 16 99/64 09/10/23 08:11 93 16 09/10/23 08:00 98.1 F 93 16 100/57 09/10/23 04:00 97.6 F 98 16 108/54 09/10/23 02:00 98 109 H 18 09/09/23 23:00 97.8 F 109 H 18 119/67 09/09/23 22:30 101 H 19 127/67 09/09/23 22:15 104 H 25 H 114/66 09/09/23 22:00 102 H 24 112/63 09/09/23 21:45 103 H 20 127/74 09/09/23 21:30 108 H 19 114/64 09/09/23 21:15 101 H 19 116/63 09/09/23 21:00 105 H 24 123/73 09/09/23 20:45 105 H 25 H 128/77 09/09/23 20:43 108 H 25 H 128/77 09/09/23 20:20 98 16 111/65 09/09/23 20:05 98 16 117/62 09/09/23 19:50 105 H 16 114/65 09/09/23 19:35 106 H 16 116/66 09/09/23 19:17 99 16 114/66 09/09/23 19:00 99 16 108/63 09/09/23 18:47 100 100 20 121/74 121/74 09/09/23 17:25 98 98 16 114/61 114/61 09/09/23 16:46 100 100 20 114/74 114/74 09/09/23 16:00 100 16 114/74 09/09/23 15:00 103 H 103 H 20 121/63 120/63 09/09/23 14:41 105 H 20 115/65 09/09/23 13:36 124 H 20 106/65 09/09/23 13:27 124 H 20 104/65 09/09/23 13:23 125 H 20 111/71 09/09/23 12:47 20 09/09/23 12:45 144 H 09/09/23 12:42 134 H 20 101/63 Pulse Ox 09/10/23 11:47 99 09/10/23 08:11 09/10/23 08:00 98 09/10/23 04:00 98 09/10/23 02:00 09/09/23 23:00 99 09/09/23 22:30 95 09/09/23 22:15 95 09/09/23 22:00 95 09/09/23 21:45 96 09/09/23 21:30 98 09/09/23 21:15 98 09/09/23 21:00 98 09/09/23 20:45 99 09/09/23 20:43 98 09/09/23 20:20 09/09/23 20:05 98 09/09/23 19:50 98 09/09/23 19:35 99 09/09/23 19:17 98 09/09/23 19:00 100 09/09/23 18:47 97 09/09/23 17:25 99 09/09/23 16:46 98 09/09/23 16:00 98 09/09/23 15:00 98 09/09/23 14:41 98 09/09/23 13:36 98 09/09/23 13:27 09/09/23 13:23 99 09/09/23 12:47 09/09/23 12:45 09/09/23 12:42 98 Intake and Output 09/09/23 09/10/23 09/10/23 22:59 06:59 14:59 Intake Total 368 Output Total 500 225 Balance -500 143 Intake: Intake, IV Titration 250 Amount Amiodarone 450 mg In 250 Dextrose 5% in Water 250 ml @ 0.5 MG/MIN 16.667 mls/hr IV .Q15H [facility] Rx#: [id number] Oral 118 Output: Urine 500 225 Other: Voiding Method External Catheter External Catheter # Voids 1 Weight 88.904 kg 88.904 kg - Constitutional General appearance: average body habitus, no acute distress - EENT Eyes: anicteric sclerae, EOMI ENT: hearing grossly normal - Respiratory breathing even and unlabored - Cardiovascular Rhythm: regular Heart sounds: normal: S1, S2 - Gastrointestinal General gastrointestinal: soft, no tenderness - Integumentary Integumentary: no cyanotic, no jaundiced, pale - Neurologic Neurologic: CNII-XII intact - Musculoskeletal Musculoskeletal: strength equal bilaterally - Psychiatric Psychiatric: A&O x's 3 Results CBC & Chem 7: 09/10/23 11:49 09/10/23 11:49 Labs: Abnormal Lab Results - Last 24 Hours (Table) 09/09/23 09/09/23 09/09/23 Range/Units 12:28 12:28 12:28 RBC 3.70 L (4.30-5.90) m/uL Hgb 9.6 L (13.0-17.5) gm/dL Hct 31.6 L (39.0-53.0) % MCHC 30.5 L (31.0-37.0) g/dL RDW 16.5 H (11.5-15.5) % Plt Count 484 H (150-450) k/uL PT 12.7 H (10.0-12.5) sec INR 1.2 H (<1.2) Sodium 134 L (137-145) mmol/L Carbon Dioxide 20 L (22-30) mmol/L Glucose 187 H (74-99) mg/dL POC Glucose (mg/dL) (70-110) mg/dL Magnesium 1.2 L (1.6-2.3) mg/dL Alkaline Phosphatase 143 H (38-126) U/L Albumin 3.2 L (3.5-5.0) g/dL Ur Leukocyte Esterase (Negative) Urine WBC (0-5) /hpf Urine WBC Clumps (None) /hpf Hyaline Casts (0-2) /lpf Urine Mucus (None) /hpf 09/09/23 09/10/23 Range/Units 22:55 02:41 RBC (4.30-5.90) m/uL Hgb (13.0-17.5) gm/dL Hct (39.0-53.0) % MCHC (31.0-37.0) g/dL RDW (11.5-15.5) % Plt Count (150-450) k/uL PT (10.0-12.5) sec INR (<1.2) Sodium (137-145) mmol/L Carbon Dioxide (22-30) mmol/L Glucose (74-99) mg/dL POC Glucose (mg/dL) 164 H (70-110) mg/dL Magnesium (1.6-2.3) mg/dL Alkaline Phosphatase (38-126) U/L Albumin (3.5-5.0) g/dL Ur Leukocyte Esterase Moderate H (Negative) Urine WBC 24 H (0-5) /hpf Urine WBC Clumps Rare H (None) /hpf Hyaline Casts 6 H (0-2) /lpf Urine Mucus Rare H (None) /hpf Assessment and Plan (1) Anemia Current Visit: Yes Status: Acute Priority: Medium Code(s): D64.9 - ANEMIA, UNSPECIFIED SNOMED Code(s): 986472726 (2) Atrial flutter Current Visit: Yes Status: Acute Priority: High Code(s): I48.92 - UNSPECIFIED ATRIAL FLUTTER SNOMED Code(s): 7693499 Plan: Atrial flutter: -Hx of same, follows with Dr. Penn -Continues on amiodarone -Defer management to cardiology team Anemia: The patient was recently admitted earlier this month at [facility] secondary to GI bleed and hypotension. Patient was experiencing hematemesis and did have to receive a blood transfusion on 08/19/23. He was subsequently transferred to [facility] and underwent EGD which was negative for acute bleeding per patient. Last hemoglobin in EMR noted hemoglobin of 7.4 on 09/01. Upon trending labs mild anemia has been noted since 2016. Iron studies obtained on 09/01 revealed ferritin 474, iron saturation 6.5%. Patient denies any previous history of anemia prior to last admission or having to receive blood products. Patient had a colonoscopy approximately 1 year ago which was normal. He does denies any use of blood thinners. -On admission hemoglobin 9.6, MCV 85.2, platelets 484,000. Creatinine 0.82, PT 12.7, INR 1.2, PTT 25.7. -Anemia likely r/t recent GI bleed. Hgb is showing improvement. No new reported episodes of acute bleeding -Will repeat anemia workup -Continue to monitor CBC. Please transfuse for hgb less than 7 or if symptomatic
[2023-09-11] MEDS: SODIUM FERRIC GLUCONAT-SUCROSE 125 MG in SODIUM CHLORIDE 0.9% 100 ML IVPB SCH (11:39)
--- NOTE | 2023-09-11 14:04 | P.PN ---
Subjective Progress Note Date: 09/11/23 Patient is a 62-year-old male with a past medical history of nonischemic cardiomyopathy with AICD implantation, mild nonobstructive coronary artery disease, diabetes type 2 diet controlled, hypertension, hyperlipidemia and osteoarthritis. Patient was recently seen in the ER on 08/19/2023 with hematemesis and was transferred to different hospital facility due to GI bleed. Patient had EGD done at [facility] and the patient reports that this was unremarkable with no source of bleeding as per patient. Patient is currently off anticoagulation. Patient was seen at Dr. Penn office and was found to be in atrial flutter/tachyarrhythmia and was transferred to ER for amiodarone drip. Patient is currently at rehab. Otherwise denies any headache or dizziness. No fever no chills. No cough or sputum production. Denied palpitations. Patient is somewhat poor historian. EKG showed ectopic atrial tachycardia with short CA interval possible atrial flutter Chest x-ray showed no acute process. Patient was previously admitted to the hospital in July 2023 due to failure to thrive and generalized weakness and acute kidney injury. Aldactone and lisinopril is on hold due to acute kidney injury at the time. Laboratory data showed WBC 10.0 hemoglobin 9.6 and platelets 484 Sodium 134 potassium 4.5 chloride 100 bicarb is 20 BUN 19 and creatinine 0.8 and blood sugar 187 and magnesium 1.2. AST 36 ALT 40 and alk phos 143 and troponin x 3 negative and albumin 3.2. TSH 4.30 Recent laboratory data done on 09/02/2023 showed hemoglobin 7.4 and platelets 249 and WBC 7.07 Sodium 132 potassium 4.3 chloride 95 bicarb is 22.3 BUN 13.8 and creatinine 0.7 and blood sugar 126 Iron profile showed iron level 11 transferrin saturation 6.55 and TIBC 168 and ferritin 474, vitamin D level 23.6. 09/09. Patient seen and examined. Laying comfortably in the bed. Currently on amiodarone drip. Denies any palpitations. Denies any chest pain or shortness of breath. 09/10. Patient seen and examined.Blood work done this morning showed WBC 8.4, hemoglobin 8.4, platelet count 350. Hematology oncology evaluated patient, started patient on iron supplementation. IV amiodarone switched to oral amioda matt. Denies any palpitations. REVIEW OF SYSTEMS: CONSTITUTIONAL: No fever, no malaise,. CARDIOVASCULAR: No chest pain, no palpitations, no syncope. PULMONARY: No shortness of breath, no cough, GASTROINTESTINAL: No diarrhea, no nausea, no vomiting, no abdominal pain. NEUROLOGICAL: No headaches, no weakness, PHYSICAL EXAMINATION: GENERAL: The patient is alert and oriented x3, not in any acute distress. Well developed, well nourished. HEENT: Pupils are round and equally reacting to light. EOMI. No scleral icterus. No conjunctival pallor. Normocephalic, atraumatic. No pharyngeal erythema. No thyromegaly. CARDIOVASCULAR: S1 and S2 present. No murmurs, rubs, or gallops. Irregular in rate and rhythm PULMONARY: Chest is clear to auscultation, no wheezing or crackles. ABDOMEN: Soft, nontender, nondistended, normoactive bowel sounds. No palpable organomegaly. MUSCULOSKELETAL: No joint swelling or deformity. EXTREMITIES: No cyanosis, clubbing, or pedal edema. NEUROLOGICAL: Gross neurological examination did not reveal any focal deficits. SKIN: No rashes. Assessment and plan Atrial flutter with rapid ventricular rate Nonischemic cardiomyopathy with ejection fraction 30 to 35% with severe global hypokinesis with history of AICD placement Mild nonobstructive coronary artery disease Recent admission to ER with hematemesis on 08/19/2023, transferred to [facility] status post EGD per patient and no evidence of bleeding. Normocytic anemia with evidence of iron deficiency. Hemoglobin 9.6 and most recent 7.4 on 09/02/2023. Vitamin D deficiency Hypovolemic hyponatremia Prediabetes with recent A1c 5.8 Hypertension Hypothyroidism Hypomagnesemia replaced. DVT prophylaxis with SCDs and GI prophylaxis with PPI Monitor vital signs Monitor CBC Monitor CMP Continue telemetry monitoring Continue amiodarone 400 mg twice daily Continue Synthroid Continue Lipitor Continue gabapentin Continue Protonix Continue IV iron Cardiology following Hematology oncology following Labs and medication were reviewed.. Continue same treatment. Continue with symptomatic treatment. Resume home medication. Monitor labs and vitals. DVT and GI prophylaxis. Further recommendations as per clinical course of the patient Dictation was produced using [employer] dictation software. please excuse any grammatical, word or spelling errors. Objective - Vital Signs Vital signs: Vital Signs Temp 98.4 F 09/11/23 07:56 Pulse 98 09/11/23 08:00 Resp 16 09/11/23 08:00 BP 108/66 09/11/23 07:56 Pulse Ox 98 09/11/23 07:56 FiO2 21 09/10/23 12:47 Intake & Output 09/10/23 09/11/23 09/11/23 18:59 06:59 18:59 Intake Total 1448 Output Total 225 1300 Balance 1223 -1300 Weight 88.904 kg Intake: Intake, IV Titration 250 Amount Amiodarone 450 mg In 250 Dextrose 5% in Water 250 ml @ 0.5 MG/MIN 16.667 mls/hr IV .Q[facility]H [facility] Rx#: [id number] Oral 1198 Output: Urine 225 1300 Other: Voiding Method External Catheter External Catheter External Catheter # Voids 1 - Labs CBC & Chem 7: 09/10/23 11:49 09/10/23 11:49 Labs: Abnormal Lab Results - Last 24 Hours (Table) 09/10/23 09/10/23 09/10/23 Range/Units 11:49 11:49 12:38 RBC 3.24 L (4.30-5.90) m/uL Hgb 8.4 L (13.0-17.5) gm/dL Hct 28.5 L (39.0-53.0) % MCHC 29.7 L (31.0-37.0) g/dL RDW 16.2 H (11.5-15.5) % Sodium 132 L (137-145) mmol/L Carbon Dioxide 20 L (22-30) mmol/L Glucose 162 H (74-99) mg/dL Iron 22 L (65-175) UG/DL TIBC 223 L (228-460) UG/DL % Saturation 9.87 L (15.00-50.00) Transferrin 159.0 L (204.0-354.0) mg/dL Ferritin 423.0 H (22.0-322.0) ng/mL
--- NOTE | 2023-09-11 14:58 | P.PN ---
Subjective Progress Note Date: 09/11/23 HISTORY OF PRESENT ILLNESS: This is a 62-year-old male with a past medical history significant for dorota schemic cardiomyopathy, AICD implantation, hypertension, hyperlipidemia, nonobstructive CAD, and recent GI bleed. Patient follows in the office with Dr. Penn. We have been asked to see the patient in consultation for atrial flutter. Patient examined at the bedside. Patient was seen at Dr. Penn's office yesterday for post hospital follow-up. The patient was recently admitted at [facility] secondary to GI bleed and hypotension. When patient presented to the office he had an EKG performed revealing possible atrial flutter with a heart rate in the 150s. He was directed to come to the emergency room by Dr. Penn. The patient was started on IV amiodarone. This morning, telemetry reveals sinus mechanism with a heart rate in 90s. He denies any chest pain or pressure. He denies SOB. He denies palpitations. DIAGNOSTICS: - EKG reveals wide-complex tachycardia with left bundle branch block - Chest xray negative for acute process - Laboratory data: WBC 10.0. Hemoglobin 9.6. Platelet count 484. Sodium 134. Potassium 4.5. BUN 19. Creatinine 0.82. Troponin negative x 3. TSH 4.300. - Current home cardiac medications include Lipitor 10 mg at night. - Most recent echocardiogram obtained on 07/29/2023 revealed ejection fraction 30 to 35%, severe global hypokinesia, mild TR, mild MR - Cardiac catheterization history: July 2015 revealing ejection fraction of 35% with 50% lesion of the ostial D1 09/11/23 Patient is doing well, no chest pain or shortness of breath. Device interrogati on reviewed shows VT threshold of 176. PHYSICAL EXAM: VITAL SIGNS: Reviewed. GENERAL: Well-developed in no acute distress. HEENT: Head is normocephalic. Pupils are equal, round. Sclerae anicteric. Mucous membranes of the mouth are moist. Neck supple. No JVD or thyromegaly LUNGS: Respirations even and unlabored. Lungs essentially clear to auscultation bilaterally. HEART: Regular rate and rhythm. S1 and S2 heard. ABDOMEN: Soft. Nondistended. Nontender. EXTREMITIES: Normal range of motion. No clubbing or cyanosis. Peripheral pulses intact. Dressings to bilateral lower extremities NEUROLOGIC: Awake and alert. Oriented x 3. ASSESSMENT: Wide-complex tachycardia: SVT (with LBBB) vs venticular tachycardia Known left bundle branch block Recent hospitalization for GI bleed and hypotension at [facility] Nonischemic cardiomyopathy, EF 35% History of AICD implantation, single chamber, [facility] Mild nonobstructive CAD Hypertension Hyperlipidemia History of psoriasis PLAN: Continue with amiodarone taper No need to repeat echocardiogram as this was obtained last month AICD interrogation reviewed with Dr. Pepper No anticoagulation due to recent hospitalization for GI bleed Consider EP study on an outpatient basis Okay to discharge home from a cardiology standpoint continue with current medications as well as amiodarone. Follow-up in office in [address] Penn. Nurse practitioner note has been reviewed by physician. Signing provider agrees with the documented findings, assessment, and plan of care documented by PRESS SECRETARY as a scribe. Objective - Vital Signs Vital signs: Vital Signs Temp 98.4 F 09/11/23 07:56 Pulse 108 H 09/11/23 13:36 Resp 16 09/11/23 13:36 BP 108/63 09/11/23 11:38 Pulse Ox 97 09/11/23 11:38 FiO2 21 09/10/23 12:47 Intake & Output 09/10/23 09/11/23 09/11/23 18:59 06:59 18:59 Intake Total 1448 120 Output Total 225 1300 600 Balance 1223 -1300 -480 Weight 88.904 kg Intake: Intake, IV Titration 250 Amount Amiodarone 450 mg In 250 Dextrose 5% in Water 250 ml @ 0.5 MG/MIN 16.667 mls/hr IV .Q15H [facility] Rx#: [id number] Oral 1198 120 Output: Urine 225 1300 600 Other: Voiding Method External Catheter External Catheter External Catheter # Voids 1 - Labs CBC & Chem 7: 09/10/23 11:49 09/10/23 11:49 Labs: Abnormal Lab Results - Last 24 Hours (Table) 09/10/23 Range/Units 12:38 Iron 22 L (65-175) UG/DL TIBC 223 L (228-460) UG/DL % Saturation 9.87 L (15.00-50.00) Transferrin 159.0 L (204.0-354.0) mg/dL Ferritin 423.0 H (22.0-322.0) ng/mL
[2023-09-12 10:31] LABS: Anisocytosis Slight; Basophils % (A) 0 %; Eosinophils # (A) 0.1 k/uL (0-0.7); Eosinophils % (A) 1 %; HCT 27.6 % (39.0-53.0); HGB 8.4 gm/dL (13.0-17.5); Hypochromasia Marked; Lymphocytes # (A) 1.3 k/uL (1.0-4.8); Lymphocytes % (A) 11 %; MCH 25.6 pg (25.0-35.0); MCHC 30.4 g/dL (31.0-37.0); MCV 84.2 fL (80.0-100.0); Mean Platelet Volume 7.9; Monocytes # (A) 0.5 k/uL (0-1.0); Monocytes % (A) 4 %; Neutrophils # (A) 9.5 k/uL (1.3-7.7); Neutrophils % (A) 83 %; Platelet Count 362 k/uL (150-450); Poikilocytosis Slight; RBC 3.28 m/uL (4.30-5.90); RDW 16.6 % (11.5-15.5); WBC 11.5 k/uL (3.8-10.6)
[2023-09-12 10:43] LABS: ALT 20 U/L (4-49); AST 23 U/L (17-59); African American GFR (CKD) >90 (>60 ml/min/1.73 sqM); Albumin 2.8 g/dL (3.5-5.0); Alkaline Phosphatase 104 U/L (38-126); Anion Gap 13 mmol/L; Blood Urea Nitrogen 15 mg/dL (9-20); Calcium 8.6 mg/dL (8.4-10.2); Carbon Dioxide 17 mmol/L (22-30); Chloride 100 mmol/L (98-107); Glucose 157 mg/dL (74-99); Non-African American GFR(CKD) >90 (>60 ml/min/1.73 sqM); Potassium 4.2 mmol/L (3.5-5.1); Sodium 130 mmol/L (137-145); Total Bilirubin 0.9 mg/dL (0.2-1.3); Total Protein 6.1 g/dL (6.3-8.2)
--- NOTE | 2023-09-12 13:03 | P.PN ---
Subjective Progress Note Date: 09/12/23 Patient is a 62-year-old male with a past medical history of nonischemic cardiomyopathy with AICD implantation, mild nonobstructive coronary artery disease, diabetes type 2 diet controlled, hypertension, hyperlipidemia and osteoarthritis. Patient was recently seen in the ER on 08/19/2023 with hematemesis and was transferred to different hospital facility due to GI bleed. Patient had EGD done at [facility] and the patient reports that this was unremarkable with no source of bleeding as per patient. Patient is currently off anticoagulation. Patient was seen at Dr. Penn office and was found to be in atrial flutter/tachyarrhythmia and was transferred to ER for amiodarone drip. Patient is currently at rehab. Otherwise denies any headache or dizziness. No fever no chills. No cough or sputum production. Denied palpitations. Patient is somewhat poor historian. EKG showed ectopic atrial tachycardia with short OK interval possible atrial flutter Chest x-ray showed no acute process. Patient was previously admitted to the hospital in July 2023 due to failure to thrive and generalized weakness and acute kidney injury. Aldactone and lisinopril is on hold due to acute kidney injury at the time. Laboratory data showed WBC 10.0 hemoglobin 9.6 and platelets 484 Sodium 134 potassium 4.5 chloride 100 bicarb is 20 BUN 19 and creatinine 0.8 and blood sugar 187 and magnesium 1.2. AST 36 ALT 40 and alk phos 143 and troponin x 3 negative and albumin 3.2. TSH 4.30 Recent laboratory data done on 09/02/2023 showed hemoglobin 7.4 and platelets 249 and WBC 7.07 Sodium 132 potassium 4.3 chloride 95 bicarb is 22.3 BUN 13.8 and creatinine 0.7 and blood sugar 126 Iron profile showed iron level 11 transferrin saturation 6.55 and TIBC 168 and ferritin 474, vitamin D level 23.6. 09/09. Patient seen and examined. Laying comfortably in the bed. Currently on amiodarone drip. Denies any palpitations. Denies any chest pain or shortness of breath. 09/10. Patient seen and examined.Blood work done this morning showed WBC 8.4, hemoglobin 8.4, platelet count 350. Hematology oncology evaluated patient, started patient on iron supplementation. IV amiodarone switched to oral amioda matt. Denies any palpitations. 09/11. Patient seen and examined. Blood work done this morning showed WBC 11.5, hemoglobin 8.4, platelet count 362, sodium 130, potassium 4.2, BUN 15, creatinine 0.65. Denies any shortness of breath. Denies any palpitations. REVIEW OF SYSTEMS: CONSTITUTIONAL: No fever, no malaise,. CARDIOVASCULAR: No chest pain, no palpitations, no syncope. PULMONARY: No shortness of breath, no cough, GASTROINTESTINAL: No diarrhea, no nausea, no vomiting, no abdominal pain. NEUROLOGICAL: No headaches, no weakness, PHYSICAL EXAMINATION: GENERAL: The patient is alert and oriented x3, not in any acute distress. Well developed, well nourished. HEENT: Pupils are round and equally reacting to light. EOMI. No scleral icterus. No conjunctival pallor. Normocephalic, atraumatic. No pharyngeal erythema. No thyromegaly. CARDIOVASCULAR: S1 and S2 present. No murmurs, rubs, or gallops. Irregular in rate and rhythm PULMONARY: Chest is clear to auscultation, no wheezing or crackles. ABDOMEN: Soft, nontender, nondistended, normoactive bowel sounds. No palpable organomegaly. MUSCULOSKELETAL: No joint swelling or deformity. EXTREMITIES: No cyanosis, clubbing, or pedal edema. NEUROLOGICAL: Gross neurological examination did not reveal any focal deficits. SKIN: No rashes. Assessment and plan Atrial flutter with rapid ventricular rate Nonischemic cardiomyopathy with ejection fraction 30 to 35% with severe global hypokinesis with history of AICD placement Mild nonobstructive coronary artery disease Recent admission to ER with hematemesis on 08/19/2023, transferred to [facility] status post EGD per patient and no evidence of bleeding. Normocytic anemia with evidence of iron deficiency. Hemoglobin 9.6 and most recent 7.4 on 09/02/2023. Vitamin D deficiency Hypovolemic hyponatremia Prediabetes with recent A1c 5.8 Hypertension Hypothyroidism Hypomagnesemia replaced. DVT prophylaxis with SCDs and GI prophylaxis with PPI Monitor vital signs Monitor CBC Monitor CMP Continue telemetry monitoring Continue amiodarone 400 mg twice daily, not on anticoagulation secondary to GI bleed Continue Synthroid Continue Lipitor Continue gabapentin Continue Protonix Continue IV iron Cardiology following Hematology oncology following Labs and medication were reviewed.. Continue same treatment. Continue with symptomatic treatment. Resume home medication. Monitor labs and vitals. DVT and GI prophylaxis. Further recommendations as per clinical course of the patient Dictation was produced using [employer] dictation software. please excuse any grammatical, word or spelling errors. Objective - Vital Signs Vital signs: Vital Signs Temp 97.5 F L 09/11/23 20:00 Pulse 109 H 09/12/23 04:00 Resp 18 09/12/23 04:00 BP 108/66 09/12/23 04:00 Pulse Ox 98 09/12/23 04:00 FiO2 21 09/10/23 12:47 Intake & Output 09/11/23 09/12/23 09/12/23 18:59 06:59 18:59 Intake Total 240 180 Output Total 1250 950 Balance -1010 -950 180 Intake: Oral 240 180 Output: Urine 1250 950 Other: Voiding Method External Catheter External Catheter - Labs CBC & Chem 7: 09/12/23 10:07 09/12/23 10:07
[2023-09-12] MEDS: AMIODARONE 200 MG TAB PO SCH (20:21)
--- NOTE | 2023-09-12 23:19 | PN ---
PROGRESS NOTE SUBJECTIVE: Mr. Lee is currently in sinus rhythm. Apparently, this gentleman had what seems to be an atrial fibrillation, but he has converted to sinus rhythm. He seems to be doing better at this time. OBJECTIVE: VITAL SIGNS: Stable. CARDIAC: S1, S2 heard normally. Short systolic murmur is noted. LUNGS: Revealed decent air entry. ABDOMEN: Unchanged. LOWER EXTREMITIES: Unchanged. ASSESSMENT: He has history of nonobstructive coronary artery disease. Recent gastrointestinal bleed. Follows with Dr. Penn. He looks and feels much better today. PLAN: Switch from amiodarone 400 mg b.i.d. to 200 mg b.i.d. after 5 to 6 days. Continue other medications and possible discharge. Can see Dr. Penn in 1 week. MMODL / IJN: [id number] /
[2023-09-13 10:00] VITALS: TEMP 98.1
[2023-09-13] MEDS: METOPROLOL TARTRATE 12.5 MG TAB PO SCH (11:36)
--- NOTE | 2023-09-13 12:12 | P.DS ---
Providers Date of admission: 09/09/23 13:25 Expected date of discharge: 09/13/23 Attending physician: Ace Hollingsworth Consults: 09/09/23 13:23 Consult Physician Routine Consulting Provider: Clarke Penn Consult Reason/Comments: a flutter Do you want consulting provider notified?: Yes 09/09/23 22:26 Consult Physician Routine Consulting Provider: Yoandy Gonzalez Consult Reason/Comments: anemia Do you want consulting provider notified?: Yes, Notify in am Primary care physician: Yahaira Foote [facility] Course: Discharge diagnoses; Atrial flutter with rapid ventricular rate Nonischemic cardiomyopathy with ejection fraction 30 to 35% with severe global hypokinesis with history of AICD placement Mild nonobstructive coronary artery disease Recent admission to ER with hematemesis on 08/19/2023, transferred to [facility] status post EGD per patient and no evidence of bleeding. Normocytic anemia with evidence of iron deficiency. Hemoglobin 9.6 and most recent 7.4 on 09/02/2023. Vitamin D deficiency Hypovolemic hyponatremia Prediabetes with recent A1c 5.8 Hypertension Hypothyroidism Hypomagnesemia replaced. Hospital course; Patient is a 62-year-old male with a past medical history of nonischemic cardiomyopathy with AICD implantation, mild nonobstructive coronary artery disease, diabetes type 2 diet controlled, hypertension, hyperlipidemia and osteoarthritis. Patient was recently seen in the ER on 08/19/2023 with hematemesis and was transferred to different hospital facility due to GI bleed. Patient had EGD done at [facility] and the patient reports that this was unremarkable with no source of bleeding as per patient. Patient is currently off anticoagulation. Patient was seen at Dr. Penn office and was found to be in atrial flutter/tachyarrhythmia and was transferred to ER for amiodarone drip. Patient is currently at rehab. Otherwise denies any headache or dizziness. No fever no chills. No cough or sputum production. Denied palpitations. Patient is somewhat poor historian. EKG showed ectopic atrial tachycardia with short SD interval possible atrial flutter Chest x-ray showed no acute process. Patient was previously admitted to the hospital in July 2023 due to failure to thrive and generalized weakness and acute kidney injury. Aldactone and lisinopril is on hold due to acute kidney injury at the time. Laboratory data showed WBC 10.0 hemoglobin 9.6 and platelets 484 Sodium 134 potassium 4.5 chloride 100 bicarb is 20 BUN 19 and creatinine 0.8 and blood sugar 187 and magnesium 1.2. AST 36 ALT 40 and alk phos 143 and troponin x 3 negative and albumin 3.2. TSH 4.30 Recent laboratory data done on 09/02/2023 showed hemoglobin 7.4 and platelets 249 and WBC 7.07 Sodium 132 potassium 4.3 chloride 95 bicarb is 22.3 BUN 13.8 and creatinine 0.7 and blood sugar 126 Iron profile showed iron level 11 transferrin saturation 6.55 and TIBC 168 and ferritin 474, vitamin D level 23.6. 09/09. Patient seen and examined. Laying comfortably in the bed. Currently on amiodarone drip. Denies any palpitations. Denies any chest pain or shortness of breath. 09/10. Patient seen and examined.Blood work done this morning showed WBC 8.4, hemoglobin 8.4, platelet count 350. Hematology oncology evaluated patient, started patient on iron supplementation. IV amiodarone switched to oral amiodarone. Denies any palpitations. 09/11. Patient seen and examined. Blood work done this morning showed WBC 11.5, hemoglobin 8.4, platelet count 362, sodium 130, potassium 4.2, BUN 15, creatinine 0.65. Denies any shortness of breath. Denies any palpitations. 09/12. Patient seen and examined. Cardiology recommend amiodarone 400 mg twice daily till 09/16 followed by amiodarone 200 mg twice daily. Patient being discharged to rehab facility PHYSICAL EXAMINATION: GENERAL: The patient is alert and oriented x3, not in any acute distress. Well developed, well nourished. HEENT: Pupils are round and equally reacting to light. EOMI. No scleral icterus. No conjunctival pallor. Normocephalic, atraumatic. No pharyngeal erythema. No thyromegaly. CARDIOVASCULAR: S1 and S2 present. No murmurs, rubs, or gallops. PULMONARY: Chest is clear to auscultation, no wheezing or crackles. ABDOMEN: Soft, nontender, nondistended, normoactive bowel sounds. No palpable organomegaly. MUSCULOSKELETAL: No joint swelling or deformity. EXTREMITIES: No cyanosis, clubbing, or pedal edema. NEUROLOGICAL: Gross neurological examination did not reveal any focal deficits. SKIN: No rashes. Dictation was produced using [employer] dictation software. please excuse any grammatical, word or spelling errors. Patient Condition at Discharge: Stable Plan - Discharge Summary Discharge Rx Participant: No New Discharge Prescriptions: New Amiodarone [Cordarone] 200 mg PO BID #60 tab Ferrous Sulfate [Iron (65 MG Elemental)] 325 mg PO BID-W/MEALS #30 tab Continue Atorvastatin [Lipitor] 10 mg PO HS Levothyroxine Sodium [Synthroid] 50 mcg PO DAILY Pantoprazole Sodium [Protonix] 40 mg PO DAILY Gabapentin [Neurontin] 300 mg PO BID 3 Days #6 cap NS Discharge Medication List Levothyroxine Sodium [Synthroid] 50 mcg PO DAILY 07/28/23 [History] Atorvastatin [Lipitor] 10 mg PO HS 09/09/23 [History] Pantoprazole Sodium [Protonix] 40 mg PO DAILY 09/09/23 [History] Amiodarone [Cordarone] 200 mg PO BID #60 tab 09/13/23 [Rx] Ferrous Sulfate [Iron (65 MG Elemental)] 325 mg PO BID-W/MEALS #30 tab 09/13/23 [Rx] Gabapentin [Neurontin] 300 mg PO BID 3 Days #6 cap NS 09/13/23 [Rx] Follow up Appointment(s)/Referral(s): Yahaira Foote MD [Primary Care Provider] - 1-2 days Agapito Pepper DO [STAFF PHYSICIAN] - 1 Week Discharge Disposition: TRANSFER TO SNF/ECF
[2023-09-13 12:29] VITALS: BP 105/64; PULSE 85; RESP 18
--- NOTE | 2023-09-13 13:53 | P.PN ---
Subjective Progress Note Date: 09/13/23 At today's visit patient is resting comfortably in bed. Patient reports he feels well. Denies shortness of breath and palpitations and dizziness. Denies any episodes of acute bleeding. Counts stable, CBC 11.5, hemoglobin 8.4, platelets 362,000. Plan is for discharged today Objective - Vital Signs Vital signs: Vital Signs Temp 98.1 F 09/13/23 08:15 Pulse 85 09/13/23 11:35 Resp 18 09/13/23 11:35 BP 105/64 09/13/23 11:35 Pulse Ox 97 09/13/23 11:35 FiO2 21 09/10/23 12:47 Intake & Output 09/12/23 09/13/23 09/13/23 18:59 06:59 18:59 Intake Total 900 118 Output Total 400 1450 Balance 500 -1450 118 Intake: Oral 900 118 Output: Urine 400 1450 Other: Voiding Method External Catheter External Catheter - Constitutional General appearance: Present: average body habitus, no acute distress - EENT Eyes: Present: anicteric sclerae, EOMI ENT: Present: hearing grossly normal - Respiratory Details: Breathing is even and unlabored - Cardiovascular Details: Skin warm and dry - Gastrointestinal General gastrointestinal: Present: soft. Absent: tenderness - Integumentary Integumentary: Present: pale - Neurologic Neurologic Comment(s): Grossly intact - Musculoskeletal Musculoskeletal: Present: strength equal bilaterally - Psychiatric Psychiatric: Present: A&O x's 3 - Labs CBC & Chem 7: 09/12/23 10:07 09/12/23 10:07 Assessment and Plan (1) Anemia Status: Acute Priority: Medium Code(s): D64.9 - ANEMIA, UNSPECIFIED SNOMED Code(s): 801759299 (2) Atrial flutter Status: Acute Priority: High Code(s): I48.92 - UNSPECIFIED ATRIAL FLUTTER SNOMED Code(s): 5763560 Plan: Atrial flutter: -Hx of same, follows with Dr. Penn -Continues on amiodarone -Defer management to cardiology team Anemia: The patient was recently admitted earlier this month at [facility] secondary to GI bleed and hypotension. Patient was experiencing hematemesis and did have to receive a blood transfusion on 08/19/23. He was subsequently transferred to [facility] and underwent EGD which was negative for acute bleeding per patient. Last hemoglobin in EMR noted hemoglobin of 7.4 on 09/01. Upon trending labs mild anemia has been noted since 2016. Iron studies obtained on 09/01 revealed ferritin 474, iron saturation 6.5%. Patient denies any previous history of anemia prior to last admission or having to receive blood products. Patient had a colonoscopy approximately 1 year ago which was normal. He does denies any use of blood thinners. -On admission hemoglobin 9.6, MCV 85.2, platelets 484,000. Creatinine 0.82, PT 12.7, INR 1.2, PTT 25.7. -Anemia likely r/t recent GI bleed. Hgb is showing improvement. No new reported episodes of acute bleeding -Anemia workup revealed iron saturation of 9.8%, and ferritin 423. Patient did receive blood transfusion on 08/18 which could have altered some of the iron studies. Will start parenteral iron. No folate deficiency noted. Vitamin B12, MMA pending. On further review of abs and imaging, patient was noted to have a decreased ejection fraction on last echo. Will order paraproteinemia workup to rule out other etiologies -Continue to monitor CBC. Please transfuse for hgb less than 7 or if symptomatic -Clinic f/u will be scheduled for further management/evaluation
[2023-09-13 18:38] LABS: Protein, Total 6.2 g/dL (6.2-8.2)
[2023-09-13 18:58] LABS: Immunoglobulin M 71.5 mg/dL (40.0-280.0)
--- NOTE | 2023-09-14 08:07 | P.PN ---
Subjective Progress Note Date: 09/13/23 HISTORY OF PRESENT ILLNESS: This is a 62-year-old male with a past medical history significant for dorota schemic cardiomyopathy, AICD implantation, hypertension, hyperlipidemia, nonobstructive CAD, and recent GI bleed. Patient follows in the office with Dr. Penn. We have been asked to see the patient in consultation for atrial flutter. Patient examined at the bedside. Patient was seen at Dr. Penn's office yesterday for post hospital follow-up. The patient was recently admitted at [facility] secondary to GI bleed and hypotension. When patient presented to the office he had an EKG performed revealing possible atrial flutter with a heart rate in the 150s. He was directed to come to the emergency room by Dr. Penn. The patient was started on IV amiodarone. This morning, telemetry reveals sinus mechanism with a heart rate in 90s. He denies any chest pain or pressure. He denies SOB. He denies palpitations. DIAGNOSTICS: - EKG reveals wide-complex tachycardia with left bundle branch block - Chest xray negative for acute process - Laboratory data: WBC 10.0. Hemoglobin 9.6. Platelet count 484. Sodium 134. Potassium 4.5. BUN 19. Creatinine 0.82. Troponin negative x 3. TSH 4.300. - Current home cardiac medications include Lipitor 10 mg at night. - Most recent echocardiogram obtained on 07/29/2023 revealed ejection fraction 30 to 35%, severe global hypokinesia, mild TR, mild MR - Cardiac catheterization history: July 2015 revealing ejection fraction of 35% with 50% lesion of the ostial D1 09/11/23 Patient is doing well, no chest pain or shortness of breath. Device interrogati on reviewed shows VT threshold of 176. 09/13 Patient denies any new concerns today. No chest pain, shortness of breath, lightheadedness or dizziness. Patient is scheduled for discharge home today. Heart rate 114, blood pressure 99/64, pulse ox 97% on room air. PHYSICAL EXAM: VITAL SIGNS: Reviewed. GENERAL: Well-developed in no acute distress. HEENT: Head is normocephalic. Pupils are equal, round. Sclerae anicteric. LUNGS: Respirations even and unlabored. Lungs essentially clear to auscultation bilaterally. HEART: Regular rate and rhythm. S1 and S2 heard. ABDOMEN: Soft. Nondistended. Nontender. EXTREMITIES: No clubbing or cyanosis. Peripheral pulses intact. Dressings to bilateral lower extremities NEUROLOGIC: Awake and alert. Oriented x 3. ASSESSMENT: Wide-complex tachycardia: SVT (with LBBB) vs venticular tachycardia Known left bundle branch block Recent hospitalization for GI bleed and hypotension at [facility] Nonischemic cardiomyopathy, EF 35% History of AICD implantation, single chamber, [facility] Mild nonobstructive CAD Hypertension Hyperlipidemia History of psoriasis PLAN: Continue with amiodarone taper, 400 mg twice daily for 5 more days, followed by 200 mg twice daily Add Lopressor 12.5 mg 3 times daily Patient is cleared for discharge home from a cardiology standpoint continue with current medications as well as amiodarone. Follow-up in office in [address] Penn. Nurse practitioner note has been reviewed by physician. Signing provider agrees with the documented findings, assessment, and plan of care documented by [employer] as a scribe. Objective - Vital Signs Vital signs: Vital Signs Temp 98.1 F 09/13/23 08:15 Pulse 114 H 09/13/23 08:15 Resp 17 09/13/23 08:15 BP 99/64 09/13/23 08:15 Pulse Ox 97 09/13/23 08:15 FiO2 21 09/10/23 12:47 Intake & Output 09/12/23 09/13/23 09/13/23 18:59 06:59 18:59 Intake Total 900 118 Output Total 400 1450 Balance 500 -1450 118 Intake: Oral 900 118 Output: Urine 400 1450 Other: Voiding Method External Catheter External Catheter - Labs CBC & Chem 7: 09/12/23 10:07 09/12/23 10:07 Labs: Abnormal Lab Results - Last 24 Hours (Table) 09/10/23 09/12/23 Range/Units 11:49 10:07 Sodium 130 L (137-145) mmol/L Carbon Dioxide 17 L (22-30) mmol/L Creatinine 0.65 L (0.66-1.25) mg/dL Glucose 157 H (74-99) mg/dL Total Protein 6.1 L (6.3-8.2) g/dL Albumin 2.8 L (3.5-5.0) g/dL RBC Folate 1,028 H (280 - 791) ng/mL
[2023-09-14 12:35] LABS: Free Kappa Lt Chain Qnt, Serum 7.85 mg/dL (0.33-1.94); Free Lambda Lt Chain Qnt, Seru 4.47 mg/dL (0.57-2.63)
[2023-09-14 16:05] LABS: Albumin 2.08 g/dL (3.80-4.90); Gamma Globulin 1.16 g/dL (0.70-1.50)
[2023-09-15 06:41] LABS: Methylmalonic Acid 0.18 umol/L (<0.40)
[2023-09-18] MEDS ORDERED: AMIODARONE 200 MG TAB PO SCH ×2 (09:00)
== END 2023-09-13 13:21 | DRG 309 ==
LOC: EC 12:14 → 3SCARD 13:25
PROVIDERS: ADMIT Internal Medicine; ATTEND Internal Medicine
PROC: 3E033RZ Introduction of Antiarrhythmic into Peripheral Vein, Percutaneous Approach (ICD-10-PCS; principal; 2023-09-09)
DX: I48.92 Unspecified atrial flutter (principal); E87.1 Hypo-osmolality and hyponatremia; I42.8 Other cardiomyopathies; E11.9 Type 2 diabetes mellitus without complications; D50.9 Iron deficiency anemia, unspecified; E03.9 Hypothyroidism, unspecified; I10 Essential (primary) hypertension; I44.7 Left bundle-branch block, unspecified; I25.10 Atherosclerotic heart disease of native coronary artery without angina pectoris; E86.1 Hypovolemia; E78.5 Hyperlipidemia, unspecified; E83.42 Hypomagnesemia; L40.9 Psoriasis, unspecified; M19.90 Unspecified osteoarthritis, unspecified site; Z79.890 Hormone replacement therapy; Z79.899 Other long term (current) drug therapy; Z79.84 Long term (current) use of oral hypoglycemic drugs; Z95.810 Presence of automatic (implantable) cardiac defibrillator
CPT/HCPCS: 36415; 71045; 80048; 80053; 81001; 82525; 82607; 82728; 82747; 82784; 83540; 83550; 83735; 83883; 83921; 84165; 84439; 84443; 84484; 85025; 85610; 85730; 86038; 86334; 86431; 93005; 94760; 96365; 96366; 96368; 99291

== ENCOUNTER 2024-02-01 07:00 | Day surgery (SDC) | payer BC ==
[2024-02-01] MEDS ORDERED: LACTATED RINGERS 1,000 ML BAG ONE (08:45)
[2024-02-01] MEDS ORDERED: PROPOFOL 10 MG/ML 20 ML VIAL IV ONE (09:28)
--- NOTE | 2024-02-22 16:25 | PCN ---
PROCEDURE NOTE REQUESTING PHYSICIAN: Dr. Yahaira Foote. HISTORY: The patient is a 63-year-old, pleasant white male, scheduled for an upper endoscopy as a part of followup of severe ulcerative esophagitis that was diagnosed in August of this year. He presented with acute upper GI bleed and was transferred to [facility], had an upper endoscopy done that showed severe ulcerative esophagitis. Since then, he has been maintained on Protonix 40 mg twice daily. He is scheduled for repeat upper endoscopy to evaluate for Fu's esophagus. PROCEDURE PERFORMED: Esophagogastroduodenoscopy with biopsy. PREOPERATIVE DIAGNOSIS: Followup severe ulcerative esophagitis. ANESTHESIA: IV sedation per Anesthesia. DESCRIPTION OF PROCEDURE: After informed consent was obtained from the patient, he was brought into the endoscopy unit. IV conscious sedation was administered by Anesthesia under continuous monitoring. Initially, the Olympus GIF-180 video endoscope was inserted into the mouth, esophagus intubated without any difficulty, and was gradually advanced into the stomach and duodenum and carefully examined. Bulb and the second part of the duodenum appeared normal. The scope at this time was withdrawn to the stomach, adequately insufflated with air, and upon careful examination, mucosa of the antrum, body, cardia, and fundus appeared normal. Scope was then withdrawn to the esophagus. There was a small hiatal hernia noted. The GE junction was located at 43 cm from the incisors. There was a 5 to 6 mm tongue of Fu's appearing mucosa just proximal to the GE junction that was biopsied. The previously noted ulcerations in the distal esophagus have completely healed. Rest of the esophagus appeared normal, and the patient tolerated the procedure well. IMPRESSION: 1. Short-segment Fu's esophagus, status post biopsy. 2. Small hiatal hernia. RECOMMENDATIONS: Findings of this examination were discussed with the patient as well as the family. He was advised to continue with Protonix 40 mg daily and follow antireflux measures and follow up in office in 6 months. If the biopsy confirms the presence of Fu's esophagus, recommend a repeat upper endoscopy in 3 years. MMODL / IJN: [id number] /
== END 2024-02-01 10:06 ==
LOC: ORWHC2ENDO 07:00
PROVIDERS: ATTEND Internal Medicine Gastroenterology
DX: K22.11 Ulcer of esophagus with bleeding
CPT/HCPCS: 43239